=== PATIENT | female | born 1950 | race Caucasian/White ===

== ENCOUNTER → 2017-11-04 12:07 | Outpatient (CLI) | payer MEDICARE, SELFPAY ==
--- NOTE | 2017-11-04 | DI.RAD.S_ITS ---
PROCEDURE: XR CERVICAL SPINE 4V OR 5V INDICATIONS: NECK PAIN TECHNIQUE: 5 views of the cervical spine were acquired. COMPARISON: None. FINDINGS: Bones: No fractures or dislocations to the T1 level. No suspicious bony lesions. There is normal range of motion between flexion and extension, with preserved normal bony alignment. There is moderately severe C. 5/6 degenerative disc disease and mild posterior projecting osteophytes present at this level did not produce definite spinal stenosis Soft tissues: Prevertebral soft tissues are normal in thickness. IMPRESSION: C5-6 degenerative disc disease is moderately severe, but a definite pattern of spinal stenosis is not seen. Depending on the clinical status followup by MR scanning may be warranted. Dictated by: Lauro Piedra M.D. on 11/04/2017 at 12:32 Approved by: Lauro Piedra M.D. on 11/04/2017 at 12:33
== END ==
PROVIDERS: PCP Internal Medicine; Visit Provider Student in an Organized Health Care Education/Training Program
DX: M50.30 Other cervical disc degeneration, unspecified cervical region (principal)
CPT/HCPCS: 72050

== ENCOUNTER 2018-02-10 14:30 | Outpatient (RCR) | payer MEDICARE, SELFPAY ==
--- NOTE | 2018-01-12 11:15 | PT.OPPOC ---
Current Diagnoses Cervicalgia (01/12/18) Provider Visit Care Team Role Provider Type Juanito Valenzuela MD Primary Care Provider Physician Specialty: Internal Medicine Address: [address] [place] [address], [id number] Email: Yolette Keenan PA-C Attending Provider Physician Specialty: Internal Medicine Address: [address] [place] [address], [id number] Email: Plan Of Care PT-OP-T Assessment and Plan Start: 01/12/18 12:38 Freq: Status: Active Protocol: Document 01/12/18 11:15 DLM (Rec: 01/12/18 19:19 DLM [email or web address]) Physical Therapy Assessment Rehab Potential Rehabilitation Potential Good Evaluation Complexity Number of Personal Factors/Comorbidities 3 or More Number of Body Systems Impaired 4 or More Clinical Presentation at Evaluation Evolving Impairments Impairments Functional Activities Pain Posture ROM Soft Tissue Mobility Strength Goals Four Impairment Impaired posture Short Term Goal (STG) Demonstrate increased postural awareness to decrease cervical strain STG Duration 4 weeks Three Impairment Decreased cervical strength Short Term Goal (STG) Increase cervical strength to 4+/5 STG Duration 3 weeks Associate Team Physician Goal (LTG) Increase cervical strength to 5/5 LTG Duration 6 weeks Two Impairment Impaired cervical AROM Short Term Goal (STG) Increase her cervical AROM to at least 50% STG Duration 3 weeks Senior Living Goal (LTG) Increase her cervical extension and rotation to WNL to resolve difficulty during driving LTG Duration 6 weeks One Impairment pain Short Term Goal (STG) Decrease her cervical pain less than 5/10 STG Duration 2 weeks Associate Team Physician Goal (LTG) Decrease her cervical pain to less than 2/10 to no longer interfere with her sleep LTG Duration 6 weeks Assessment Summary Assessment She presents with clinical signs of cervical strain that are compounded by underlying degenerative changes. She participates in several activities that keep her head in a flexed position for extended periods of time at home. She is a good candidate for physical therapy to address the identified problems. Physical Therapy Plan Frequency and Duration Frequency of Treatment 2x/Week Duration of Treatment 6 weeks Plan of Care Start Date 01/12/18 Plan of Care End Date 03/17/18 Therapeutic Interventions Therapeutic Interventions Home Exercise Program Joint Mobilizations Manual Therapy Patient/Caregiver Education Self-Care/Home Management Soft Tissue Mobilization Taping Therapeutic Activities Therapeutic Exercises Modalities Cold Pack/Ice Massage Electric Stimulation Hot Packs Next Visit Focus/Plan Next Note Type Treatment Note Next Visit Plan trial estim to decrease lower cervical hypersensitivity, exercises Plan of Care Dates Plan of Care Start Date 01/12/18 Plan of Care End Date 03/17/18 Please Sign and Return: I have reviewed this Plan of Care and certify that the skilled therapy services above are required to meet the patient?s needs. Physician Signature Date Printed Name and Credentials Clinical Instructor Signature Printed Name and Credentials
--- NOTE | 2018-01-12 11:15 | PT.OIE ---
Current Diagnoses Cervicalgia (01/12/18) Provider Visit Care Team Role Provider Type Juanito Valenzuela MD Primary Care Provider Physician Specialty: Internal Medicine Address: [address] [place] [address], [id number] Email: Yolette Keenan PA-C Attending Provider Physician Specialty: Internal Medicine Address: [address] [place] [address], [id number] Email: Physical Therapy Initial Evaluation PT-OP-A Visit Information Start: 01/12/18 12:38 Freq: Status: Active Protocol: Document 01/12/18 11:15 DLM (Rec: 01/12/18 19:19 DLM [email or web address]) Out-Patient Physical Therapy Visit Information Visit Information Visit Type Initial Evaluation Visit Start Time 11:15 Visit Stop Time 12:10 Total Visit Minutes 55 Visit Number 1 Number of HEARING AIDE TECHNICIAN Visits 0 Evaluation Information Evaluation Date 01/12/18 PT-OP-B Current Condition Start: 01/12/18 12:38 Freq: Status: Active Protocol: Document 01/12/18 11:15 DLM (Rec: 01/12/18 19:19 DLM [email or web address]) Current Condition History of Current Condition Onset Date 1 week ago Current Complaints neck pain History of Current Condition Her pain has been at this current level for about a week . She developed back in October but it got better. Now the pain is back and worse than it was. She is not sure what caused the pain. She was washing the ceilings and dominguez in her Mother's house over the summer but not sure if that caused it. She is having pain sleeping, cooking and making jewelry. She has noted difficulty turning her head in the car when backing up. 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 Baseline Function- Recreation/Hobbies reads her Sariah Baseline Function- Other active Current Functional Impairments (Reported) Functional Limitations- ADL's Independent, cooking is painful Functional Limitations- Mobility/Gait Independent Functional Limitations- Work/School having to limit the amount of time she works on her jewelry due to the pain Functional Limitations- Recreation/ having difficulty looking down Hobbies to read her Sariah Functional Limitations- Other pain that limits her sleep, neck stiffness/pain that makes it hard to turn her head for driving PT-OP-C Subjective Start: 01/12/18 12:38 Freq: Status: Active Protocol: Document 01/12/18 11:15 DLM (Rec: 01/12/18 19:19 DLM [email or web address]) OP-PT Subjective Patient Comments Patient Comments She has tried ice on her neck but was not sure what else to do at home. Patient Questionnaires Neck Disability Index NDI Score 17/45 Neck Disability Index Impairment 20 to 39% Impaired (Score 10- 19) OP-PT Pain Assessment Pain Assessment Grid Paper Pain Assessment Grid Completed Yes: in paper chart Location Posterior Neck Intensity 7 Scale Used Numeric (1 - 10) Description Aching Frequency Daily Pain Duration worse after looking down then tries to bring her head up Radiating Location none Variations/Patterns better when resting up straight Pain Aggravating Factors Position Activity Other Pain Aggravating Factors looking down, turning her head Pain Alleviating Factors Cold Medication Inactivity Home Pain Medication Use Pain Medications Used Yes: Tylenol only Home Pain Medication Frequency daily Patient Goal no longer need it Pain Behaviors Pain Behaviors Facial Grimacing PT-OP-F Manual Assessment Start: 01/12/18 12:38 Freq: Status: Active Protocol: Document 01/12/18 11:15 DLM (Rec: 01/12/18 19:19 DLM [email or web address]) Manual Assessments Soft Tissue Assessment Soft Tissue Mobility Assessment sub-occipitals are very tight with tenderness, right UT tight/tender Joint Mobility Assessment Joint Mobility Assessment upper cervical mobility is WNL , lower cervical is very tender and full assessment can not be performed at this time PT-OP-J Posture/Palpation/Skin Start: 01/12/18 12:38 Freq: Status: Active Protocol: Document 01/12/18 11:15 DLM (Rec: 01/12/18 19:19 DLM [email or web address]) Posture Evaluation Position Sitting Evaluation View Posterior Head/C-Spine Posture Flexed Forward Head T-Spine Posture Neutral L-Spine Posture Flattened Shoulder Posture (L) Rounded (R) Rounded Arm Posture (L) Neutral (R) Neutral Pelvis Posture Posterior Tilted Weight Distribution Balanced Palpation Assessment Location One Palpation Location cervical Palpation Findings Soft Tissue Tightness Tenderness Palpation Details sub-occipital tightness, right Upper trap tightness and tender, very tender throughout C5-7 joint areas, pt jumps with attempt at deep palpation , tender along spine down to T3, 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 PT-OP-K Range of Motion Start: 01/12/18 12:38 Freq: Status: Active Protocol: Document 01/12/18 11:15 DLM (Rec: 01/12/18 19:19 DLM [email or web address]) Cervical Spine Range of Motion Cervical Spine Active Percentage Testing Position Sitting Flexion 100 Extension 75 Rotation Left 50 Rotation Right 75 Lateral Flexion Left 25 Lateral Flexion Right 30 ROM Limitations Soft Tissue Tightness Pain Shoulder Goniometric Range of Motion Shoulder Measured in Degrees Right Active Shoulder ROM WFL Yes Left Active Shoulder ROM WFL Yes PT-OP-L Special Tests Start: 01/12/18 12:38 Freq: Status: Active Protocol: Document 01/12/18 11:15 DLM (Rec: 01/12/18 19:19 DLM [email or web address]) Special Tests Cervical Spine Special Tests Traction Test Results improved pain Comments manual traction used Passive Neck Flexion Test Results negative Foraminal Compression Test Results no change PT-OP-M Strength Start: 01/12/18 12:38 Freq: Status: Active Protocol: Document 01/12/18 11:15 DLM (Rec: 01/12/18 19:19 DLM [email or web address]) Cervical Spine Strength Cervical Spine Manual Muscle Testing Testing Position Sitting Flexion (C1-2) 4 Good Extension 4+ Good+ Rotation Left 5 Normal Rotation Right 5 Normal Lateral Flexion Left (C3) 4 Good Lateral Flexion Right (C3) 4 Good Comments pain with all except rotation, mild pain but the worst is with lateral flexion Trunk Strength Trunk Manual Muscle Testing Testing Position Sitting Core Stabilization generalized core weakness PT-OP-Q Treatments Start: 01/12/18 12:38 Freq: Status: Active Protocol: Document 01/12/18 11:15 DLM (Rec: 01/12/18 19:19 DLM [email or web address]) Therapeutic Exercises Sitting Exercises 2 Sitting Exercise Name scapular pinches Reps/Minutes x 10 reps 1 Sitting Exercise Name posterior shoulder rolls Reps/Minutes x 10 reps Comments pt to do exercises 2-3 times a day at home Manual Therapy Treatment Soft Tissue Mobilization 2 Body Location cervical and UT manual stretching Mobilization Type Other Intensity/Depth Moderate Body Position Hooklying 1 Body Location sub-occipital release Mobilization Type Sustained Pressure Intensity/Depth Moderate Body Position Hooklying Manual Traction Cervical Details intermittent Body Position Hooklying Reps/Duration 3 reps Comments pt reports pain relief Self-Care/Home Management Treatment Education Patient Education Pain Management Posture PT-OP-T Assessment and Plan Start: 01/12/18 12:38 Freq: Status: Active Protocol: Document 01/12/18 11:15 DLM (Rec: 01/12/18 19:19 DLM [email or web address]) Physical Therapy Assessment Rehab Potential Rehabilitation Potential Good Evaluation Complexity Number of Personal Factors/Comorbidities 3 or More Number of Body Systems Impaired 4 or More Clinical Presentation at Evaluation Evolving Impairments Impairments Functional Activities Pain Posture ROM Soft Tissue Mobility Strength Goals Four Impairment Impaired posture Short Term Goal (STG) Demonstrate increased postural awareness to decrease cervical strain STG Duration 4 weeks Three Impairment Decreased cervical strength Short Term Goal (STG) Increase cervical strength to 4+/5 STG Duration 3 weeks Resident Athletic Trainer Goal (LTG) Increase cervical strength to 5/5 LTG Duration 6 weeks Two Impairment Impaired cervical AROM Short Term Goal (STG) Increase her cervical AROM to at least 50% STG Duration 3 weeks Skilled Nursing Goal (LTG) Increase her cervical extension and rotation to WNL to resolve difficulty during driving LTG Duration 6 weeks One Impairment pain Short Term Goal (STG) Decrease her cervical pain less than 5/10 STG Duration 2 weeks Skilled Nursing Goal (LTG) Decrease her cervical pain to less than 2/10 to no longer interfere with her sleep LTG Duration 6 weeks Assessment Summary Assessment She presents with clinical signs of cervical strain that are compounded by underlying degenerative changes. She participates in several activities that keep her head in a flexed postion for extended periods of time at home. She is a good candidate for physical therapy to address the identified problems. Physical Therapy Plan Frequency and Duration Frequency of Treatment 2x/Week Duration of Treatment 6 weeks Plan of Care Start Date 01/12/18 Plan of Care End Date 03/17/18 Therapeutic Interventions Therapeutic Interventions Home Exercise Program Joint Mobilizations Manual Therapy Patient/Caregiver Education Self-Care/Home Management Soft Tissue Mobilization Taping Therapeutic Activities Therapeutic Exercises Modalities Cold Pack/Ice Massage Electric Stimulation Hot Packs Next Visit Focus/Plan Next Note Type Treatment Note Next Visit Plan trial estim to decrease lower cervical hypersensativity, exercises
--- NOTE | 2018-01-17 13:45 | PT.OTN ---
Current Diagnoses Cervicalgia (01/17/18) Physical Therapy Treatment Note PT-OP-A Visit Information Start: 01/12/18 12:38 Freq: Status: Active Protocol: Document 01/17/18 13:45 DLM (Rec: 01/17/18 15:08 DLM [email or web address]) Out-Patient Physical Therapy Visit Information Visit Information Visit Type Treatment Note Visit Start Time 13:45 Visit Stop Time 14:40 Total Visit Minutes 55 Visit Number 2 Number of MAILING MACHINE ASSISTANT Visits 0 Evaluation Information Evaluation Date 01/12/18 PT-OP-B Current Condition Start: 01/12/18 12:38 Freq: Status: Active Protocol: Document 01/12/18 11:15 DLM (Rec: 01/12/18 19:19 DLM [email or web address]) Current Condition History of Current Condition Onset Date 1 week ago Current Complaints neck pain History of Current Condition Her pain has been at this current level for about a week . She developed back in October but it got better. Now the pain is back and worse than it was. She is not sure what caused the pain. She was washing the ceilings and dominguez in her Mother's house over the summer but not sure if that caused it. She is having pain sleeping, cooking and making jewelry. She has noted difficulty turning her head in the car when backing up. 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 Baseline Function- Recreation/Hobbies reads her Sariah Baseline Function- Other active Current Functional Impairments (Reported) Functional Limitations- ADL's Independent, cooking is painful Functional Limitations- Mobility/Gait Independent Functional Limitations- Work/School having to limit the amount of time she works on her jewelry due to the pain Functional Limitations- Recreation/ having difficulty looking down Hobbies to read her Sariah Functional Limitations- Other pain that limits her sleep, neck stiffness/pain that makes it hard to turn her head for driving PT-OP-C Subjective Start: 01/12/18 12:38 Freq: Status: Active Protocol: Document 01/17/18 13:45 DLM (Rec: 01/17/18 15:08 DLM [email or web address]) OP-PT Subjective Patient Comments Patient Comments She had a lot of pain at base of head/neck after last visit. She has been sore since last visit making it hard to work and cook. Patient Reported Progress Same OP-PT Pain Assessment Location Posterior Neck Intensity 7 Scale Used Numeric (1 - 10) Description Aching Home Pain Medication Use Pain Medications Used Yes: Tylenol only Home Pain Medication Frequency daily Pain Behaviors Pain Behaviors Facial Grimacing [place] PT-OP-F Manual Assessment Start: 01/12/18 12:38 Freq: Status: Active Protocol: Document 01/12/18 11:15 DLM (Rec: 01/12/18 19:19 DLM [email or web address]) Manual Assessments Soft Tissue Assessment Soft Tissue Mobility Assessment sub-occipitals are very tight with tenderness, right UT tight/tender Joint Mobility Assessment Joint Mobility Assessment upper cervical mobility is WNL , lower cervical is very tender and full assessment can not be performed at this time PT-OP-J Posture/Palpation/Skin Start: 01/12/18 12:38 Freq: Status: Active Protocol: Document 01/12/18 11:15 DLM (Rec: 01/12/18 19:19 DLM [email or web address]) Posture Evaluation Position Sitting Evaluation View Posterior Head/C-Spine Posture Flexed Forward Head T-Spine Posture Neutral L-Spine Posture Flattened Shoulder Posture (L) Rounded (R) Rounded Arm Posture (L) Neutral (R) Neutral Pelvis Posture Posterior Tilted Weight Distribution Balanced Palpation Assessment Location One Palpation Location cervical Palpation Findings Soft Tissue Tightness Tenderness Palpation Details sub-occipital tightness, right Upper trap tightness and tender, very tender throughout C5-7 joint areas, pt jumps with attempt at deep palpation , tender along spine down to T3, 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 PT-OP-K Range of Motion Start: 01/12/18 12:38 Freq: Status: Active Protocol: Document 01/12/18 11:15 DLM (Rec: 01/12/18 19:19 DLM [email or web address]) Cervical Spine Range of Motion Cervical Spine Active Percentage Testing Position Sitting Flexion 100 Extension 75 Rotation Left 50 Rotation Right 75 Lateral Flexion Left 25 Lateral Flexion Right 30 ROM Limitations Soft Tissue Tightness Pain Shoulder Goniometric Range of Motion Shoulder Measured in Degrees Right Active Shoulder ROM WFL Yes Left Active Shoulder ROM WFL Yes PT-OP-L Special Tests Start: 01/12/18 12:38 Freq: Status: Active Protocol: Document 01/12/18 11:15 DLM (Rec: 01/12/18 19:19 DLM [email or web address]) Special Tests Cervical Spine Special Tests Traction Test Results improved pain Comments manual traction used Passive Neck Flexion Test Results negative Foraminal Compression Test Results no change PT-OP-M Strength Start: 01/12/18 12:38 Freq: Status: Active Protocol: Document 01/12/18 11:15 DLM (Rec: 01/12/18 19:19 DLM [email or web address]) Cervical Spine Strength Cervical Spine Manual Muscle Testing Testing Position Sitting Flexion (C1-2) 4 Good Extension 4+ Good+ Rotation Left 5 Normal Rotation Right 5 Normal Lateral Flexion Left (C3) 4 Good Lateral Flexion Right (C3) 4 Good Comments pain with all except rotation, mild pain but the worst is with lateral flexion Trunk Strength Trunk Manual Muscle Testing Testing Position Sitting Core Stabilization generalized core weakness PT-OP-Q Treatments Start: 01/12/18 12:38 Freq: Status: Active Protocol: Document 01/17/18 13:45 DLM (Rec: 01/17/18 15:08 DLM [email or web address]) Therapeutic Exercises Supine Exercises 2 Supine Exercise Name supine cervical flexion, small ROM Reps/Minutes x 5 reps 1 Supine Exercise Name supine chin tucks Reps/Minutes x 5 reps Sitting Exercises 2 Sitting Exercise Name scapular pinches Reps/Minutes x 10 reps 1 Sitting Exercise Name posterior shoulder rolls Reps/Minutes x 10 reps Standing Exercises 3 Standing Exercise Name postural stretch with back to wall, moving feet back for stretch Reps/Minutes x 3 reps 2 Standing Exercise Name wall push-ups Side bilateral Reps/Minutes x 10 reps 1 Standing Exercise Name corner pectoralis stretch Side bilateral Reps/Minutes x 3 reps Manual Therapy Treatment Soft Tissue Mobilization 2 Body Location cervical and UT manual stretching Intensity/Depth Superficial Body Position Hooklying Comments decreased intensity due to soreness after last visit 1 Body Location sub-occipital release Mobilization Type Sustained Pressure Intensity/Depth Superficial Body Position Hooklying Comments decreased intensity due to soreness after last visit Manual Traction Cervical Details intermittent Body Position Hooklying Reps/Duration 3 reps Comments pt reports pain relief Self-Care/Home Management Treatment Education Patient Education Pain Management Posture PT-OP-R Modalities Start: 01/12/18 12:38 Freq: Status: Active Protocol: Document 01/17/18 13:45 DLM (Rec: 01/17/18 15:08 DLM [email or web address]) Ultrasound Therapy Treatment Posterior Lateral Neck Treatment Duration (minutes) 8 Patient Position Sitting Coupling Medium Ultrasound Gel Applicator Size (cm2) 10 Frequency Setting (mHz) 3 Mode Setting Continuous Duty Cycle 100% Intensity Setting (w/cm2) 1.2 PT-OP-T Assessment and Plan Start: 01/12/18 12:38 Freq: Status: Active Protocol: Document 01/17/18 13:45 DLM (Rec: 01/17/18 15:08 DLM [email or web address]) Physical Therapy Assessment Impairments Impairments Functional Activities Pain Posture ROM Soft Tissue Mobility Strength Progress Towards Goals Progress Towards Goals Slow Progress - Other Assessment Summary Assessment Pt presents with high irritability in her neck following first visit. She reports hearing crepitus in her neck during this visit. She tolerated treatment well today without increased pain. Decreased the intensity of manual therapy due to increased pain after last visit. Progressing her exercises slowly due to her pain issues. She is currently using heat on her neck at home and occasional ice to manage her pain. She plans to shop for a new pillow this week. Trialed US this visit to get up to sub-occipital area better. Physical Therapy Plan Frequency and Duration Frequency of Treatment 2x/Week Duration of Treatment 6 weeks Plan of Care Start Date 01/12/18 Plan of Care End Date 03/17/18 Therapeutic Interventions Therapeutic Interventions Home Exercise Program Joint Mobilizations Manual Therapy Patient/Caregiver Education Self-Care/Home Management Soft Tissue Mobilization Taping Therapeutic Activities Therapeutic Exercises Modalities Cold Pack/Ice Massage Electric Stimulation Hot Packs Next Visit Focus/Plan Next Note Type Treatment Note Next Visit Plan assess response to Ultrasound, continue to advance exercises as tolerated
--- NOTE | 2018-01-20 13:45 | PT.OTN ---
Current Diagnoses Cervicalgia (01/20/18) Physical Therapy Treatment Note PT-OP-A Visit Information Start: 01/12/18 12:38 Freq: Status: Active Protocol: Document 01/20/18 17:01 DLM (Rec: 01/20/18 17:17 DLM [email or web address]) Out-Patient Physical Therapy Visit Information Visit Information Visit Type Treatment Note Visit Start Time 13:50 Visit Stop Time 14:40 Total Visit Minutes 50 Visit Number 3 Number of TRAVELIFT OPERATOR Visits 0 Evaluation Information Evaluation Date 01/12/18 PT-OP-B Current Condition Start: 01/12/18 12:38 Freq: Status: Active Protocol: Document 01/12/18 11:15 DLM (Rec: 01/12/18 19:19 DLM [email or web address]) Current Condition History of Current Condition Onset Date 1 week ago Current Complaints neck pain History of Current Condition Her pain has been at this current level for about a week . She developed back in October but it got better. Now the pain is back and worse than it was. She is not sure what caused the pain. She was washing the ceilings and dominguez in her Mother's house over the summer but not sure if that caused it. She is having pain sleeping, cooking and making jewelry. She has noted difficulty turning her head in the car when backing up. 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 Baseline Function- Recreation/Hobbies reads her Sariah Baseline Function- Other active Current Functional Impairments (Reported) Functional Limitations- ADL's Independent, cooking is painful Functional Limitations- Mobility/Gait Independent Functional Limitations- Work/School having to limit the amount of time she works on her jewelry due to the pain Functional Limitations- Recreation/ having difficulty looking down Hobbies to read her Sariah Functional Limitations- Other pain that limits her sleep, neck stiffness/pain that makes it hard to turn her head for driving PT-OP-C Subjective Start: 01/12/18 12:38 Freq: Status: Active Protocol: Document 01/20/18 17:01 DLM (Rec: 01/20/18 17:17 DLM [email or web address]) OP-PT Subjective Patient Comments Patient Comments She felt better afte last visit. Her neck still gets really sore when making dinner . She is having trouble finding a new pillow. She has been using heat at home to manage her pain. Patient Reported Progress Improving OP-PT Pain Assessment Location Posterior Neck Pain Location Details pain rating at start of visit Intensity 0 Scale Used Numeric (1 - 10) Description Aching Frequency Intermittent PT-OP-F Manual Assessment Start: 01/12/18 12:38 Freq: Status: Active Protocol: Document 01/12/18 11:15 DLM (Rec: 01/12/18 19:19 DLM [email or web address]) Manual Assessments Soft Tissue Assessment Soft Tissue Mobility Assessment sub-occipitals are very tight with tenderness, right UT tight/tender Joint Mobility Assessment Joint Mobility Assessment upper cervical mobility is WNL , lower cervical is very tender and full assessment can not be performed at this time PT-OP-J Posture/Palpation/Skin Start: 01/12/18 12:38 Freq: Status: Active Protocol: Document 01/12/18 11:15 DLM (Rec: 01/12/18 19:19 DLM [email or web address]) Posture Evaluation Position Sitting Evaluation View Posterior Head/C-Spine Posture Flexed Forward Head T-Spine Posture Neutral L-Spine Posture Flattened Shoulder Posture (L) Rounded (R) Rounded Arm Posture (L) Neutral (R) Neutral Pelvis Posture Posterior Tilted Weight Distribution Balanced Palpation Assessment Location One Palpation Location cervical Palpation Findings Soft Tissue Tightness Tenderness Palpation Details sub-occipital tightness, right Upper trap tightness and tender, very tender throughout C5-7 joint areas, pt jumps with attempt at deep palpation , tender along spine down to T3, 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 PT-OP-K Range of Motion Start: 01/12/18 12:38 Freq: Status: Active Protocol: Document 01/12/18 11:15 DLM (Rec: 01/12/18 19:19 DLM [email or web address]) Cervical Spine Range of Motion Cervical Spine Active Percentage Testing Position Sitting Flexion 100 Extension 75 Rotation Left 50 Rotation Right 75 Lateral Flexion Left 25 Lateral Flexion Right 30 ROM Limitations Soft Tissue Tightness Pain Shoulder Goniometric Range of Motion Shoulder Measured in Degrees Right Active Shoulder ROM WFL Yes Left Active Shoulder ROM WFL Yes PT-OP-L Special Tests Start: 01/12/18 12:38 Freq: Status: Active Protocol: Document 01/12/18 11:15 DLM (Rec: 01/12/18 19:19 DLM [email or web address]) Special Tests Cervical Spine Special Tests Traction Test Results improved pain Comments manual traction used Passive Neck Flexion Test Results negative Foraminal Compression Test Results no change PT-OP-M Strength Start: 01/12/18 12:38 Freq: Status: Active Protocol: Document 01/12/18 11:15 DLM (Rec: 01/12/18 19:19 DLM [email or web address]) Cervical Spine Strength Cervical Spine Manual Muscle Testing Testing Position Sitting Flexion (C1-2) 4 Good Extension 4+ Good+ Rotation Left 5 Normal Rotation Right 5 Normal Lateral Flexion Left (C3) 4 Good Lateral Flexion Right (C3) 4 Good Comments pain with all except rotation, mild pain but the worst is with lateral flexion Trunk Strength Trunk Manual Muscle Testing Testing Position Sitting Core Stabilization generalized core weakness PT-OP-Q Treatments Start: 01/12/18 12:38 Freq: Status: Active Protocol: Document 01/20/18 17:01 DLM (Rec: 01/20/18 17:17 DLM [email or web address]) Cardio Equipment Upper Body Ergometer (UBE) Duration (Minutes) 6 Height 1.5 Other 3 forward and 3 backwards Therapeutic Exercises Supine Exercises 1 Supine Exercise Name supine chin tucks Reps/Minutes x 5 reps Sitting Exercises 4 Sitting Exercise Name cervical AROM- flex/ext, Rot, SB Side bilateral Reps/Minutes 5 each Comments with erect posture 3 Sitting Exercise Name trunk sidebend stretch Side bilateral Reps/Minutes x 3 bilaterally Comments to decrease right trunk lean 2 Sitting Exercise Name scapular pinches Reps/Minutes x 10 reps 1 Sitting Exercise Name posterior shoulder rolls Reps/Minutes x 10 reps Standing Exercises 3 Standing Exercise Name postural stretch with back to wall, moving feet back for stretch Reps/Minutes x 3 reps 2 Standing Exercise Name wall push-ups Side bilateral Reps/Minutes x 10 reps 1 Standing Exercise Name corner pectoralis stretch Side bilateral Reps/Minutes x 3 reps, 30 sec hold Manual Therapy Treatment Soft Tissue Mobilization 2 Body Location cervical and UT manual stretching Intensity/Depth Superficial Body Position Hooklying 1 Body Location sub-occipital release Mobilization Type Sustained Pressure Intensity/Depth Superficial Body Position Hooklying Manual Traction Cervical Details intermittent Body Position Hooklying Reps/Duration 3 reps Comments pt reports pain relief PT-OP-R Modalities Start: 01/12/18 12:38 Freq: Status: Active Protocol: Document 01/20/18 17:01 DL (Rec: 01/20/18 17:17 DL [email or web address]) Ultrasound Therapy Treatment Posterior Lateral Neck Treatment Duration (minutes) 8 Patient Position Sitting Coupling Medium Ultrasound Gel Applicator Size (cm2) 10 Frequency Setting (mHz) 3 Mode Setting Continuous Duty Cycle 100% Intensity Setting (w/cm2) 1.2 PT-OP-T Assessment and Plan Start: 01/12/18 12:38 Freq: Status: Active Protocol: Document 01/20/18 17:01 DL (Rec: 01/20/18 17:17 DL [email or web address]) Physical Therapy Assessment Progress Towards Goals Progress Towards Goals Progressing Toward Goals Assessment Summary Assessment She tolerated treatment well today. She feels the US is helpful. Continuing to slowly advance her exercises. Right cervical rotation is better than left but still more painful than left. Physical Therapy Plan Frequency and Duration Frequency of Treatment 2x/Week Duration of Treatment 6 weeks Plan of Care Start Date 01/12/18 Plan of Care End Date 03/17/18 Therapeutic Interventions Therapeutic Interventions Home Exercise Program Joint Mobilizations Manual Therapy Patient/Caregiver Education Self-Care/Home Management Soft Tissue Mobilization Taping Therapeutic Activities Therapeutic Exercises Modalities Cold Pack/Ice Massage Electric Stimulation Hot Packs Next Visit Focus/Plan Next Note Type Treatment Note Next Visit Plan consider kinesiotape to decrease cervical strain with home activities
--- NOTE | 2018-01-24 14:42 | PT.OTN ---
Current Diagnoses Cervicalgia (01/24/18) Physical Therapy Treatment Note PT-OP-A Visit Information Start: 01/12/18 12:38 Freq: Status: Active Protocol: Document 01/24/18 14:39 EA (Rec: 01/24/18 14:39 EA [id number]) Out-Patient Physical Therapy Visit Information Visit Information Visit Type Treatment Note Visit Start Time 13:45 Visit Stop Time 14:40 Total Visit Minutes 45 Visit Number 4 Number of DIRECTOR OF SOCIAL MEDIA MARKETING Visits 0 Evaluation Information Evaluation Date 01/12/18 PT-OP-B Current Condition Start: 01/12/18 12:38 Freq: Status: Active Protocol: Document 01/12/18 11:15 DLM (Rec: 01/12/18 19:19 DLM [email or web address]) Current Condition History of Current Condition Onset Date 1 week ago Current Complaints neck pain History of Current Condition Her pain has been at this current level for about a week . She developed back in October but it got better. Now the pain is back and worse than it was. She is not sure what caused the pain. She was washing the ceilings and dominguez in her Mother's house over the summer but not sure if that caused it. She is having pain sleeping, cooking and making jewelry. She has noted difficulty turning her head in the car when backing up. 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 Baseline Function- Recreation/Hobbies reads her Sariah Baseline Function- Other active Current Functional Impairments (Reported) Functional Limitations- ADL's Independent, cooking is painful Functional Limitations- Mobility/Gait Independent Functional Limitations- Work/School having to limit the amount of time she works on her jewelry due to the pain Functional Limitations- Recreation/ having difficulty looking down Hobbies to read her Sariah Functional Limitations- Other pain that limits her sleep, neck stiffness/pain that makes it hard to turn her head for driving PT-OP-C Subjective Start: 01/12/18 12:38 Freq: Status: Active Protocol: Document 01/24/18 13:05 EA (Rec: 01/24/18 13:43 EA [id number]) OP-PT Subjective Patient Comments Patient Comments Pt reports neck is getting much better;states occsional discomfort when turning the neck. PT-OP-F Manual Assessment Start: 01/12/18 12:38 Freq: Status: Active Protocol: Document 01/12/18 11:15 DLM (Rec: 01/12/18 19:19 DLM [email or web address]) Manual Assessments Soft Tissue Assessment Soft Tissue Mobility Assessment sub-occipitals are very tight with tenderness, right UT tight/tender Joint Mobility Assessment Joint Mobility Assessment upper cervical mobility is WNL , lower cervical is very tender and full assessment can not be performed at this time PT-OP-J Posture/Palpation/Skin Start: 01/12/18 12:38 Freq: Status: Active Protocol: Document 01/12/18 11:15 DLM (Rec: 01/12/18 19:19 DLM [email or web address]) Posture Evaluation Position Sitting Evaluation View Posterior Head/C-Spine Posture Flexed Forward Head T-Spine Posture Neutral L-Spine Posture Flattened Shoulder Posture (L) Rounded (R) Rounded Arm Posture (L) Neutral (R) Neutral Pelvis Posture Posterior Tilted Weight Distribution Balanced Palpation Assessment Location One Palpation Location cervical Palpation Findings Soft Tissue Tightness Tenderness Palpation Details sub-occipital tightness, right Upper trap tightness and tender, very tender throughout C5-7 joint areas, pt jumps with attempt at deep palpation , tender along spine down to T3, 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 PT-OP-K Range of Motion Start: 01/12/18 12:38 Freq: Status: Active Protocol: Document 01/12/18 11:15 DLM (Rec: 01/12/18 19:19 DLM [email or web address]) Cervical Spine Range of Motion Cervical Spine Active Percentage Testing Position Sitting Flexion 100 Extension 75 Rotation Left 50 Rotation Right 75 Lateral Flexion Left 25 Lateral Flexion Right 30 ROM Limitations Soft Tissue Tightness Pain Shoulder Goniometric Range of Motion Shoulder Measured in Degrees Right Active Shoulder ROM WFL Yes Left Active Shoulder ROM WFL Yes PT-OP-L Special Tests Start: 01/12/18 12:38 Freq: Status: Active Protocol: Document 01/12/18 11:15 DLM (Rec: 01/12/18 19:19 DLM [email or web address]) Special Tests Cervical Spine Special Tests Traction Test Results improved pain Comments manual traction used Passive Neck Flexion Test Results negative Foraminal Compression Test Results no change PT-OP-M Strength Start: 01/12/18 12:38 Freq: Status: Active Protocol: Document 01/12/18 11:15 DLM (Rec: 01/12/18 19:19 DLM [email or web address]) Cervical Spine Strength Cervical Spine Manual Muscle Testing Testing Position Sitting Flexion (C1-2) 4 Good Extension 4+ Good+ Rotation Left 5 Normal Rotation Right 5 Normal Lateral Flexion Left (C3) 4 Good Lateral Flexion Right (C3) 4 Good Comments pain with all except rotation, mild pain but the worst is with lateral flexion Trunk Strength Trunk Manual Muscle Testing Testing Position Sitting Core Stabilization generalized core weakness PT-OP-Q Treatments Start: 01/12/18 12:38 Freq: Status: Active Protocol: Document 01/24/18 13:05 EA (Rec: 01/24/18 13:43 EA [id number]) Therapeutic Exercises Supine Exercises 2 Supine Exercise Name supine cervical flexion, small ROM Reps/Minutes x 5 reps Comments HEP 1 Supine Exercise Name supine chin tucks Reps/Minutes x 5 reps Comments HEP Sitting Exercises 4 Sitting Exercise Name cervical AROM- flex/ext, Rot, SB Side bilateral Reps/Minutes 5 each Comments with erect posture: HEP 3 Sitting Exercise Name trunk sidebend stretch Side bilateral Reps/Minutes x 3 bilaterally Comments to decrease right trunk lean 1 Sitting Exercise Name posterior shoulder rolls Reps/Minutes x 10 reps Standing Exercises 3 Standing Exercise Name postural stretch with back to wall, moving feet back for stretch Reps/Minutes x 3 reps Manual Therapy Treatment Soft Tissue Mobilization 2 Body Location cervical and UT manual stretching Intensity/Depth Superficial Body Position Hooklying 1 Body Location sub-occipital release Mobilization Type Sustained Pressure Intensity/Depth Superficial Body Position Hooklying PT-OP-R Modalities Start: 01/12/18 12:38 Freq: Status: Active Protocol: Document 01/24/18 13:05 EA (Rec: 01/24/18 13:43 EA [id number]) Hot Pack/Cold Pack Treatment Hot Pack Location post cervical Treatment Duration (minutes) 15 Patient Tolerance Fair Comments Unwrapped PT-OP-T Assessment and Plan Start: 01/12/18 12:38 Freq: Status: Active Protocol: Document 01/24/18 13:05 EA (Rec: 01/24/18 13:43 EA [id number]) Physical Therapy Assessment Assessment Summary Assessment Pt has improved ROM and nod discomfort noted during therex . Patient is progressing well Physical Therapy Plan Next Visit Focus/Plan Next Note Type Treatment Note Next Visit Plan Advance as tolerated
--- NOTE | 2018-01-28 16:14 | PT.OTN ---
Current Diagnoses Cervicalgia (01/28/18) Physical Therapy Treatment Note PT-OP-A Visit Information Start: 01/12/18 12:38 Freq: Status: Active Protocol: Document 01/28/18 15:15 DCW (Rec: 01/28/18 16:14 DCW [id number]) Out-Patient Physical Therapy Visit Information Visit Information Visit Type Treatment Note Visit Start Time 15:15 Visit Stop Time 16:05 Total Visit Minutes 50 Visit Number 5 Number of RODENT EXTERMINATOR Visits 0 Evaluation Information Evaluation Date 01/12/18 PT-OP-B Current Condition Start: 01/12/18 12:38 Freq: Status: Active Protocol: Document 01/12/18 11:15 DLM (Rec: 01/12/18 19:19 DLM [email or web address]) Current Condition History of Current Condition Onset Date 1 week ago Current Complaints neck pain History of Current Condition Her pain has been at this current level for about a week . She developed back in October but it got better. Now the pain is back and worse than it was. She is not sure what caused the pain. She was washing the ceilings and dominguez in her Mother's house over the summer but not sure if that caused it. She is having pain sleeping, cooking and making jewelry. She has noted difficulty turning her head in the car when backing up. 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 Baseline Function- Recreation/Hobbies reads her Sariah Baseline Function- Other active Current Functional Impairments (Reported) Functional Limitations- ADL's Independent, cooking is painful Functional Limitations- Mobility/Gait Independent Functional Limitations- Work/School having to limit the amount of time she works on her jewelry due to the pain Functional Limitations- Recreation/ having difficulty looking down Hobbies to read her Sariah Functional Limitations- Other pain that limits her sleep, neck stiffness/pain that makes it hard to turn her head for driving PT-OP-C Subjective Start: 01/12/18 12:38 Freq: Status: Active Protocol: Document 01/28/18 15:15 DCW (Rec: 01/28/18 16:14 DCW [id number]) OP-PT Subjective Patient Comments Patient Comments Pt having a little more pain today, was trying to perform her home stretching earlier, and noticed it was much harder flexing head to the left. Admits I've never been an active person, but I was really active today, so that might have something to do with it. PT-OP-F Manual Assessment Start: 01/12/18 12:38 Freq: Status: Active Protocol: Document 01/12/18 11:15 DLM (Rec: 01/12/18 19:19 DLM [email or web address]) Manual Assessments Soft Tissue Assessment Soft Tissue Mobility Assessment sub-occipitals are very tight with tenderness, right UT tight/tender Joint Mobility Assessment Joint Mobility Assessment upper cervical mobility is WNL , lower cervical is very tender and full assessment can not be performed at this time PT-OP-J Posture/Palpation/Skin Start: 01/12/18 12:38 Freq: Status: Active Protocol: Document 01/12/18 11:15 DLM (Rec: 01/12/18 19:19 DLM [email or web address]) Posture Evaluation Position Sitting Evaluation View Posterior Head/C-Spine Posture Flexed Forward Head T-Spine Posture Neutral L-Spine Posture Flattened Shoulder Posture (L) Rounded (R) Rounded Arm Posture (L) Neutral (R) Neutral Pelvis Posture Posterior Tilted Weight Distribution Balanced Palpation Assessment Location One Palpation Location cervical Palpation Findings Soft Tissue Tightness Tenderness Palpation Details sub-occipital tightness, right Upper trap tightness and tender, very tender throughout C5-7 joint areas, pt jumps with attempt at deep palpation , tender along spine down to T3, 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 PT-OP-K Range of Motion Start: 01/12/18 12:38 Freq: Status: Active Protocol: Document 01/12/18 11:15 DLM (Rec: 01/12/18 19:19 DLM [email or web address]) Cervical Spine Range of Motion Cervical Spine Active Percentage Testing Position Sitting Flexion 100 Extension 75 Rotation Left 50 Rotation Right 75 Lateral Flexion Left 25 Lateral Flexion Right 30 ROM Limitations Soft Tissue Tightness Pain Shoulder Goniometric Range of Motion Shoulder Measured in Degrees Right Active Shoulder ROM WFL Yes Left Active Shoulder ROM WFL Yes PT-OP-L Special Tests Start: 01/12/18 12:38 Freq: Status: Active Protocol: Document 01/12/18 11:15 DLM (Rec: 01/12/18 19:19 DLM [email or web address]) Special Tests Cervical Spine Special Tests Traction Test Results improved pain Comments manual traction used Passive Neck Flexion Test Results negative Foraminal Compression Test Results no change PT-OP-M Strength Start: 01/12/18 12:38 Freq: Status: Active Protocol: Document 01/12/18 11:15 DLM (Rec: 01/12/18 19:19 DLM [email or web address]) Cervical Spine Strength Cervical Spine Manual Muscle Testing Testing Position Sitting Flexion (C1-2) 4 Good Extension 4+ Good+ Rotation Left 5 Normal Rotation Right 5 Normal Lateral Flexion Left (C3) 4 Good Lateral Flexion Right (C3) 4 Good Comments pain with all except rotation, mild pain but the worst is with lateral flexion Trunk Strength Trunk Manual Muscle Testing Testing Position Sitting Core Stabilization generalized core weakness PT-OP-Q Treatments Start: 01/12/18 12:38 Freq: Status: Active Protocol: Document 01/28/18 15:15 DCW (Rec: 01/28/18 16:14 DCW [id number]) Cardio Equipment Upper Body Ergometer (UBE) Duration (Minutes) 6 Height 3 Other 3 forward and 3 backwards Therapeutic Exercises Supine Exercises 3 Supine Exercise Name upper trap stretch Comments Manual 1 Supine Exercise Name supine chin tucks Reps/Minutes x 5 reps Comments HEP Manual Therapy Treatment Soft Tissue Mobilization 2 Body Location cervical and UT manual stretching Intensity/Depth Superficial Body Position Hooklying 1 Body Location sub-occipital release Mobilization Type Sustained Pressure Intensity/Depth Superficial Body Position Hooklying Manual Traction Cervical Details intermittent Body Position Hooklying Reps/Duration 3 reps Comments pt reports pain relief PT-OP-R Modalities Start: 01/12/18 12:38 Freq: Status: Active Protocol: Document 01/28/18 15:15 DCW (Rec: 01/28/18 16:14 DCW [id number]) Hot Pack/Cold Pack Treatment Hot Pack Location post cervical Patient Position Hooklying Treatment Duration (minutes) 10 Patient Tolerance Good PT-OP-T Assessment and Plan Start: 01/12/18 12:38 Freq: Status: Active Protocol: Document 01/28/18 15:15 DCW (Rec: 01/28/18 16:14 DCW [id number]) Physical Therapy Assessment Impairments Impairments Functional Activities Pain Posture ROM Soft Tissue Mobility Strength Goals Four Impairment Impaired posture Short Term Goal (STG) Demonstrate increased postural awareness to decrease cervical strain STG Duration 4 weeks Three Impairment Decreased cervical strength Short Term Goal (STG) Increase cervical strength to 4+/5 STG Duration 3 weeks Plastic Cutter Goal (LTG) Increase cervical strength to 5/5 LTG Duration 6 weeks Two Impairment Impaired cervical AROM Short Term Goal (STG) Increase her cervical AROM to at least 50% STG Duration 3 weeks Plastic Cutter Goal (LTG) Increase her cervical extension and rotation to WNL to resolve difficulty during driving LTG Duration 6 weeks One Impairment pain Short Term Goal (STG) Decrease her cervical pain less than 5/10 STG Duration 2 weeks Nursing Home Goal (LTG) Decrease her cervical pain to less than 2/10 to no longer interfere with her sleep LTG Duration 6 weeks Progress Towards Goals Progress Towards Goals Slow Progress - Other Assessment Summary Assessment Pt tolerated manual therapy well, although did report some slight discomfort during STM. Physical Therapy Plan Frequency and Duration Frequency of Treatment 2x/Week Duration of Treatment 6 weeks Plan of Care Start Date 01/12/18 Plan of Care End Date 03/17/18 Therapeutic Interventions Therapeutic Interventions Home Exercise Program Joint Mobilizations Manual Therapy Patient/Caregiver Education Self-Care/Home Management Soft Tissue Mobilization Taping Therapeutic Activities Therapeutic Exercises Modalities Cold Pack/Ice Massage Electric Stimulation Hot Packs Next Visit Focus/Plan Next Note Type Treatment Note Next Visit Plan Continue current POC
--- NOTE | 2018-01-31 13:53 | PT.OTN ---
Current Diagnoses Cervicalgia (01/31/18) Physical Therapy Treatment Note PT-OP-A Visit Information Start: 01/12/18 12:38 Freq: Status: Active Protocol: Document 01/31/18 13:01 [facility] (Rec: 01/31/18 13:53 [facility] [id number]) Out-Patient Physical Therapy Visit Information Visit Information Visit Type Treatment Note Visit Start Time 13:00 Visit Stop Time 13:50 Total Visit Minutes 55 Visit Number 6 Number of FILE SYSTEM INSTALLER Visits 0 PT-OP-B Current Condition Start: 01/12/18 12:38 Freq: Status: Active Protocol: Document 01/12/18 11:15 DLM (Rec: 01/12/18 19:19 DLM [email or web address]) Current Condition History of Current Condition Onset Date 1 week ago Current Complaints neck pain History of Current Condition Her pain has been at this current level for about a week . She developed back in October but it got better. Now the pain is back and worse than it was. She is not sure what caused the pain. She was washing the ceilings and dominguez in her Mother's house over the summer but not sure if that caused it. She is having pain sleeping, cooking and making jewelry. She has noted difficulty turning her head in the car when backing up. 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 Baseline Function- Recreation/Hobbies reads her Sariah Baseline Function- Other active Current Functional Impairments (Reported) Functional Limitations- ADL's Independent, cooking is painful Functional Limitations- Mobility/Gait Independent Functional Limitations- Work/School having to limit the amount of time she works on her jewelry due to the pain Functional Limitations- Recreation/ having difficulty looking down Hobbies to read her Sariah Functional Limitations- Other pain that limits her sleep, neck stiffness/pain that makes it hard to turn her head for driving PT-OP-C Subjective Start: 01/12/18 12:38 Freq: Status: Active Protocol: Document 01/31/18 13:01 [facility] (Rec: 01/31/18 13:53 [facility] [id number]) OP-PT Subjective Patient Comments Patient Comments Pt reports she has been trying to do exercises but has been very busy lately too. PT-OP-F Manual Assessment Start: 01/12/18 12:38 Freq: Status: Active Protocol: Document 01/12/18 11:15 DLM (Rec: 01/12/18 19:19 DLM [email or web address]) Manual Assessments Soft Tissue Assessment Soft Tissue Mobility Assessment sub-occipitals are very tight with tenderness, right UT tight/tender Joint Mobility Assessment Joint Mobility Assessment upper cervical mobility is WNL , lower cervical is very tender and full assessment can not be performed at this time PT-OP-J Posture/Palpation/Skin Start: 01/12/18 12:38 Freq: Status: Active Protocol: Document 01/12/18 11:15 DLM (Rec: 01/12/18 19:19 DLM [email or web address]) Posture Evaluation Position Sitting Evaluation View Posterior Head/C-Spine Posture Flexed Forward Head T-Spine Posture Neutral L-Spine Posture Flattened Shoulder Posture (L) Rounded (R) Rounded Arm Posture (L) Neutral (R) Neutral Pelvis Posture Posterior Tilted Weight Distribution Balanced Palpation Assessment Location One Palpation Location cervical Palpation Findings Soft Tissue Tightness Tenderness Palpation Details sub-occipital tightness, right Upper trap tightness and tender, very tender throughout C5-7 joint areas, pt jumps with attempt at deep palpation , tender along spine down to T3, 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 PT-OP-K Range of Motion Start: 01/12/18 12:38 Freq: Status: Active Protocol: Document 01/12/18 11:15 DLM (Rec: 01/12/18 19:19 DLM [email or web address]) Cervical Spine Range of Motion Cervical Spine Active Percentage Testing Position Sitting Flexion 100 Extension 75 Rotation Left 50 Rotation Right 75 Lateral Flexion Left 25 Lateral Flexion Right 30 ROM Limitations Soft Tissue Tightness Pain Shoulder Goniometric Range of Motion Shoulder Measured in Degrees Right Active Shoulder ROM WFL Yes Left Active Shoulder ROM WFL Yes PT-OP-L Special Tests Start: 01/12/18 12:38 Freq: Status: Active Protocol: Document 01/12/18 11:15 DLM (Rec: 01/12/18 19:19 DLM [email or web address]) Special Tests Cervical Spine Special Tests Traction Test Results improved pain Comments manual traction used Passive Neck Flexion Test Results negative Foraminal Compression Test Results no change PT-OP-M Strength Start: 01/12/18 12:38 Freq: Status: Active Protocol: Document 01/12/18 11:15 DLM (Rec: 01/12/18 19:19 DLM [email or web address]) Cervical Spine Strength Cervical Spine Manual Muscle Testing Testing Position Sitting Flexion (C1-2) 4 Good Extension 4+ Good+ Rotation Left 5 Normal Rotation Right 5 Normal Lateral Flexion Left (C3) 4 Good Lateral Flexion Right (C3) 4 Good Comments pain with all except rotation, mild pain but the worst is with lateral flexion Trunk Strength Trunk Manual Muscle Testing Testing Position Sitting Core Stabilization generalized core weakness PT-OP-Q Treatments Start: 01/12/18 12:38 Freq: Status: Active Protocol: Document 01/31/18 13:01 [facility] (Rec: 01/31/18 13:53 [facility] [id number]) Cardio Equipment Upper Body Ergometer (UBE) Duration (Minutes) 6 Height 3 Other 3 forward and 3 backwards Therapeutic Activity Therapeutic Activity 1 Name desk posture Comments edu on how to set up computer & laptop for good positioning Manual Therapy Treatment Soft Tissue Mobilization 3 Body Location cervical post region Mobilization Type Myofascial Release Comments w/dycem & head turns & flex 2 Body Location UT & LS Mobilization Type Rolling Intensity/Depth Moderate Joint Mobilizations 1 Joint T1 Direction L transverse FM Comments w/cover position PT-OP-R Modalities Start: 01/12/18 12:38 Freq: Status: Active Protocol: Document 01/31/18 13:01 [facility] (Rec: 01/31/18 13:53 [facility] [id number]) Hot Pack/Cold Pack Treatment Hot Pack Location post cervical Patient Position Hooklying Treatment Duration (minutes) 10 Patient Tolerance Good PT-OP-T Assessment and Plan Start: 01/12/18 12:38 Freq: Status: Active Protocol: Document 01/31/18 13:01 [facility] (Rec: 01/31/18 13:53 [facility] [id number]) Physical Therapy Assessment Goals Four Impairment Impaired posture Short Term Goal (STG) Demonstrate increased postural awareness to decrease cervical strain STG Duration 4 weeks Three Impairment Decreased cervical strength Short Term Goal (STG) Increase cervical strength to 4+/5 STG Duration 3 weeks Nurse [employer] Goal (LTG) Increase cervical strength to 5/5 LTG Duration 6 weeks Two Impairment Impaired cervical AROM Short Term Goal (STG) Increase her cervical AROM to at least 50% STG Duration 3 weeks [facility] Goal (LTG) Increase her cervical extension and rotation to WNL to resolve difficulty during driving LTG Duration 6 weeks One Impairment pain Short Term Goal (STG) Decrease her cervical pain less than 5/10 STG Duration 2 weeks [facility] Goal (LTG) Decrease her cervical pain to less than 2/10 to no longer interfere with her sleep LTG Duration 6 weeks Assessment Summary Assessment Pt had improved rotation with dec pain with cervical STM & gentle mobilziation. Significant R sided tightness of cervical mm with dec excursion of upper thoracic. Physical Therapy Plan Frequency and Duration Frequency of Treatment 2x/Week Duration of Treatment 6 weeks Plan of Care Start Date 01/12/18 Plan of Care End Date 03/17/18 Next Visit Focus/Plan Next Note Type Treatment Note Next Visit Plan Continue current POC; work on upper thoracic mobility
--- NOTE | 2018-02-03 12:44 | PT.OTN ---
Current Diagnoses Cervicalgia (02/03/18) Physical Therapy Treatment Note PT-OP-A Visit Information Start: 01/12/18 12:38 Freq: Status: Active Protocol: Document 02/03/18 12:00 DCW (Rec: 02/03/18 12:44 DCW [id number]) Out-Patient Physical Therapy Visit Information Visit Information Visit Type Treatment Note Visit Start Time 12:00 Visit Stop Time 12:45 Total Visit Minutes 45 Visit Number 7 Number of INFORMATICS EDUCATOR Visits 0 Evaluation Information Evaluation Date 01/12/18 PT-OP-B Current Condition Start: 01/12/18 12:38 Freq: Status: Active Protocol: Document 01/12/18 11:15 DLM (Rec: 01/12/18 19:19 DLM [email or web address]) Current Condition History of Current Condition Onset Date 1 week ago Current Complaints neck pain History of Current Condition Her pain has been at this current level for about a week . She developed back in October but it got better. Now the pain is back and worse than it was. She is not sure what caused the pain. She was washing the ceilings and dominguez in her Mother's house over the summer but not sure if that caused it. She is having pain sleeping, cooking and making jewelry. She has noted difficulty turning her head in the car when backing up. 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 Baseline Function- Recreation/Hobbies reads her Sariah Baseline Function- Other active Current Functional Impairments (Reported) Functional Limitations- ADL's Independent, cooking is painful Functional Limitations- Mobility/Gait Independent Functional Limitations- Work/School having to limit the amount of time she works on her jewelry due to the pain Functional Limitations- Recreation/ having difficulty looking down Hobbies to read her Sariah Functional Limitations- Other pain that limits her sleep, neck stiffness/pain that makes it hard to turn her head for driving PT-OP-C Subjective Start: 01/12/18 12:38 Freq: Status: Active Protocol: Document 02/03/18 12:00 DCW (Rec: 02/03/18 12:44 DCW [id number]) OP-PT Subjective Patient Comments Patient Comments Pt notes she has been doing well PT-OP-F Manual Assessment Start: 01/12/18 12:38 Freq: Status: Active Protocol: Document 01/12/18 11:15 DLM (Rec: 01/12/18 19:19 DLM [email or web address]) Manual Assessments Soft Tissue Assessment Soft Tissue Mobility Assessment sub-occipitals are very tight with tenderness, right UT tight/tender Joint Mobility Assessment Joint Mobility Assessment upper cervical mobility is WNL , lower cervical is very tender and full assessment can not be performed at this time PT-OP-J Posture/Palpation/Skin Start: 01/12/18 12:38 Freq: Status: Active Protocol: Document 01/12/18 11:15 DLM (Rec: 01/12/18 19:19 DLM [email or web address]) Posture Evaluation Position Sitting Evaluation View Posterior Head/C-Spine Posture Flexed Forward Head T-Spine Posture Neutral L-Spine Posture Flattened Shoulder Posture (L) Rounded (R) Rounded Arm Posture (L) Neutral (R) Neutral Pelvis Posture Posterior Tilted Weight Distribution Balanced Palpation Assessment Location One Palpation Location cervical Palpation Findings Soft Tissue Tightness Tenderness Palpation Details sub-occipital tightness, right Upper trap tightness and tender, very tender throughout C5-7 joint areas, pt jumps with attempt at deep palpation , tender along spine down to T3, 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 PT-OP-K Range of Motion Start: 01/12/18 12:38 Freq: Status: Active Protocol: Document 01/12/18 11:15 DLM (Rec: 01/12/18 19:19 DLM [email or web address]) Cervical Spine Range of Motion Cervical Spine Active Percentage Testing Position Sitting Flexion 100 Extension 75 Rotation Left 50 Rotation Right 75 Lateral Flexion Left 25 Lateral Flexion Right 30 ROM Limitations Soft Tissue Tightness Pain Shoulder Goniometric Range of Motion Shoulder Measured in Degrees Right Active Shoulder ROM WFL Yes Left Active Shoulder ROM WFL Yes PT-OP-L Special Tests Start: 01/12/18 12:38 Freq: Status: Active Protocol: Document 01/12/18 11:15 DLM (Rec: 01/12/18 19:19 DLM [email or web address]) Special Tests Cervical Spine Special Tests Traction Test Results improved pain Comments manual traction used Passive Neck Flexion Test Results negative Foraminal Compression Test Results no change PT-OP-M Strength Start: 01/12/18 12:38 Freq: Status: Active Protocol: Document 01/12/18 11:15 DLM (Rec: 01/12/18 19:19 DLM [email or web address]) Cervical Spine Strength Cervical Spine Manual Muscle Testing Testing Position Sitting Flexion (C1-2) 4 Good Extension 4+ Good+ Rotation Left 5 Normal Rotation Right 5 Normal Lateral Flexion Left (C3) 4 Good Lateral Flexion Right (C3) 4 Good Comments pain with all except rotation, mild pain but the worst is with lateral flexion Trunk Strength Trunk Manual Muscle Testing Testing Position Sitting Core Stabilization generalized core weakness PT-OP-Q Treatments Start: 01/12/18 12:38 Freq: Status: Active Protocol: Document 02/03/18 12:00 DCW (Rec: 02/03/18 12:44 DCW [id number]) Therapeutic Exercises Supine Exercises 3 Supine Exercise Name upper trap stretch Comments Manual 1 Supine Exercise Name supine chin tucks Reps/Minutes x 5 reps Comments HEP Sitting Exercises 4 Sitting Exercise Name cervical AROM- flex/ext, Rot, SB Side bilateral Reps/Minutes 5 each Comments with erect posture: HEP Manual Therapy Treatment Soft Tissue Mobilization 2 Body Location cervical and UT manual stretching Intensity/Depth Superficial Body Position Hooklying 1 Body Location sub-occipital release Mobilization Type Sustained Pressure Intensity/Depth Superficial Body Position Hooklying Joint Mobilizations 1 Joint T1 Direction L transverse FM Comments w/cover position Manual Traction Cervical Details intermittent Body Position Hooklying Reps/Duration 3 reps PT-OP-T Assessment and Plan Start: 01/12/18 12:38 Freq: Status: Active Protocol: Document 02/03/18 12:00 DCW (Rec: 02/03/18 12:44 DCW [id number]) Physical Therapy Assessment Impairments Impairments Functional Activities Pain Posture ROM Soft Tissue Mobility Strength Goals Four Impairment Impaired posture Short Term Goal (STG) Demonstrate increased postural awareness to decrease cervical strain STG Duration 4 weeks Three Impairment Decreased cervical strength Short Term Goal (STG) Increase cervical strength to 4+/5 STG Duration 3 weeks Residential Goal (LTG) Increase cervical strength to 5/5 LTG Duration 6 weeks Two Impairment Impaired cervical AROM Short Term Goal (STG) Increase her cervical AROM to at least 50% STG Duration 3 weeks Emissions Technician Goal (LTG) Increase her cervical extension and rotation to WNL to resolve difficulty during driving LTG Duration 6 weeks One Impairment pain Short Term Goal (STG) Decrease her cervical pain less than 5/10 STG Duration 2 weeks Residential Goal (LTG) Decrease her cervical pain to less than 2/10 to no longer interfere with her sleep LTG Duration 6 weeks Progress Towards Goals Progress Towards Goals Slow Progress - Other Assessment Summary Assessment Pt displayed decrease in cervical tone, improved mobility. Physical Therapy Plan Frequency and Duration Frequency of Treatment 2x/Week Duration of Treatment 6 weeks Plan of Care Start Date 01/12/18 Plan of Care End Date 03/17/18 Therapeutic Interventions Therapeutic Interventions Home Exercise Program Joint Mobilizations Manual Therapy Patient/Caregiver Education Self-Care/Home Management Soft Tissue Mobilization Taping Therapeutic Activities Therapeutic Exercises Modalities Cold Pack/Ice Massage Electric Stimulation Hot Packs Next Visit Focus/Plan Next Note Type Treatment Note Next Visit Plan Continue current POC; work on upper thoracic mobility
--- NOTE | 2018-02-07 16:00 | PT.OTN ---
Current Diagnoses Cervicalgia (02/07/18) Physical Therapy Treatment Note PT-OP-A Visit Information Start: 01/12/18 12:38 Freq: Status: Active Protocol: Document 02/07/18 15:16 EA (Rec: 02/07/18 15:59 EA [id number]) Out-Patient Physical Therapy Visit Information Visit Information Visit Type Treatment Note Visit Start Time 15:15 Visit Stop Time 16:00 Total Visit Minutes 45 Visit Number 8 PT-OP-B Current Condition Start: 01/12/18 12:38 Freq: Status: Active Protocol: Document 01/12/18 11:15 DLM (Rec: 01/12/18 19:19 DLM [email or web address]) Current Condition History of Current Condition Onset Date 1 week ago Current Complaints neck pain History of Current Condition Her pain has been at this current level for about a week . She developed back in October but it got better. Now the pain is back and worse than it was. She is not sure what caused the pain. She was washing the ceilings and dominguez in her Mother's house over the summer but not sure if that caused it. She is having pain sleeping, cooking and making jewelry. She has noted difficulty turning her head in the car when backing up. 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 Baseline Function- Recreation/Hobbies reads her Sariah Baseline Function- Other active Current Functional Impairments (Reported) Functional Limitations- ADL's Independent, cooking is painful Functional Limitations- Mobility/Gait Independent Functional Limitations- Work/School having to limit the amount of time she works on her jewelry due to the pain Functional Limitations- Recreation/ having difficulty looking down Hobbies to read her Sariah Functional Limitations- Other pain that limits her sleep, neck stiffness/pain that makes it hard to turn her head for driving PT-OP-C Subjective Start: 01/12/18 12:38 Freq: Status: Active Protocol: Document 02/07/18 15:16 EA (Rec: 02/07/18 15:59 EA [id number]) OP-PT Subjective Patient Comments Patient Comments Patient reports turning head towards right still hav difficult. PT-OP-F Manual Assessment Start: 01/12/18 12:38 Freq: Status: Active Protocol: Document 01/12/18 11:15 DLM (Rec: 01/12/18 19:19 DLM [email or web address]) Manual Assessments Soft Tissue Assessment Soft Tissue Mobility Assessment sub-occipitals are very tight with tenderness, right UT tight/tender Joint Mobility Assessment Joint Mobility Assessment upper cervical mobility is WNL , lower cervical is very tender and full assessment can not be performed at this time PT-OP-J Posture/Palpation/Skin Start: 01/12/18 12:38 Freq: Status: Active Protocol: Document 01/12/18 11:15 DLM (Rec: 01/12/18 19:19 DLM [email or web address]) Posture Evaluation Position Sitting Evaluation View Posterior Head/C-Spine Posture Flexed Forward Head T-Spine Posture Neutral L-Spine Posture Flattened Shoulder Posture (L) Rounded (R) Rounded Arm Posture (L) Neutral (R) Neutral Pelvis Posture Posterior Tilted Weight Distribution Balanced Palpation Assessment Location One Palpation Location cervical Palpation Findings Soft Tissue Tightness Tenderness Palpation Details sub-occipital tightness, right Upper trap tightness and tender, very tender throughout C5-7 joint areas, pt jumps with attempt at deep palpation , tender along spine down to T3, 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 PT-OP-K Range of Motion Start: 01/12/18 12:38 Freq: Status: Active Protocol: Document 01/12/18 11:15 DLM (Rec: 01/12/18 19:19 DLM [email or web address]) Cervical Spine Range of Motion Cervical Spine Active Percentage Testing Position Sitting Flexion 100 Extension 75 Rotation Left 50 Rotation Right 75 Lateral Flexion Left 25 Lateral Flexion Right 30 ROM Limitations Soft Tissue Tightness Pain Shoulder Goniometric Range of Motion Shoulder Measured in Degrees Right Active Shoulder ROM WFL Yes Left Active Shoulder ROM WFL Yes PT-OP-L Special Tests Start: 01/12/18 12:38 Freq: Status: Active Protocol: Document 01/12/18 11:15 DLM (Rec: 01/12/18 19:19 DLM [email or web address]) Special Tests Cervical Spine Special Tests Traction Test Results improved pain Comments manual traction used Passive Neck Flexion Test Results negative Foraminal Compression Test Results no change PT-OP-M Strength Start: 01/12/18 12:38 Freq: Status: Active Protocol: Document 01/12/18 11:15 DLM (Rec: 01/12/18 19:19 DLM [email or web address]) Cervical Spine Strength Cervical Spine Manual Muscle Testing Testing Position Sitting Flexion (C1-2) 4 Good Extension 4+ Good+ Rotation Left 5 Normal Rotation Right 5 Normal Lateral Flexion Left (C3) 4 Good Lateral Flexion Right (C3) 4 Good Comments pain with all except rotation, mild pain but the worst is with lateral flexion Trunk Strength Trunk Manual Muscle Testing Testing Position Sitting Core Stabilization generalized core weakness PT-OP-Q Treatments Start: 01/12/18 12:38 Freq: Status: Active Protocol: Document 02/07/18 15:16 EA (Rec: 02/07/18 15:59 EA [id number]) Therapeutic Exercises Supine Exercises 3 Supine Exercise Name upper trap stretch Comments Manual 1 Supine Exercise Name supine chin tucks Reps/Minutes x 5 reps Comments HEP Sitting Exercises 4 Sitting Exercise Name cervical AROM- flex/ext, Rot, SB Side bilateral Reps/Minutes 5 each Comments with erect posture: HEP Manual Therapy Treatment Soft Tissue Mobilization 3 Body Location cervical post region Mobilization Type Myofascial Release 2 Body Location cervical and UT manual stretching Intensity/Depth Superficial Body Position Hooklying 1 Body Location sub-occipital release Mobilization Type Sustained Pressure Intensity/Depth Superficial Body Position Hooklying Manual Traction Cervical Details intermittent Body Position Hooklying Reps/Duration 3 reps PT-OP-R Modalities Start: 01/12/18 12:38 Freq: Status: Active Protocol: Document 01/31/18 13:01 LR (Rec: 01/31/18 13:53 [facility] [id number]) Hot Pack/Cold Pack Treatment Hot Pack Location post cervical Patient Position Hooklying Treatment Duration (minutes) 10 Patient Tolerance Good PT-OP-T Assessment and Plan Start: 01/12/18 12:38 Freq: Status: Active Protocol: Document 02/07/18 15:16 EA (Rec: 02/07/18 15:59 EA [id number]) Physical Therapy Assessment Assessment Summary Assessment Full AROM to rotation slight discomfort at range toward right. Patient is progressing well. Physical Therapy Plan Next Visit Focus/Plan Next Note Type Treatment Note Next Visit Plan Continue current POC; work on upper thoracic mobility
--- NOTE | 2018-02-10 15:14 | PT.OTN ---
Current Diagnoses Cervicalgia (02/10/18) Physical Therapy Treatment Note PT-OP-A Visit Information Start: 01/12/18 12:38 Freq: Status: Active Protocol: Document 02/10/18 15:08 EA (Rec: 02/10/18 15:14 EA [id number]) Out-Patient Physical Therapy Visit Information Visit Information Visit Type Treatment Note Visit Start Time 14:30 Visit Stop Time 15:10 Total Visit Minutes 40 Visit Number 9 PT-OP-B Current Condition Start: 01/12/18 12:38 Freq: Status: Active Protocol: Document 01/12/18 11:15 DLM (Rec: 01/12/18 19:19 DLM [email or web address]) Current Condition History of Current Condition Onset Date 1 week ago Current Complaints neck pain History of Current Condition Her pain has been at this current level for about a week . She developed back in October but it got better. Now the pain is back and worse than it was. She is not sure what caused the pain. She was washing the ceilings and dominguez in her Mother's house over the summer but not sure if that caused it. She is having pain sleeping, cooking and making jewelry. She has noted difficulty turning her head in the car when backing up. 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 Baseline Function- Recreation/Hobbies reads her Sariah Baseline Function- Other active Current Functional Impairments (Reported) Functional Limitations- ADL's Independent, cooking is painful Functional Limitations- Mobility/Gait Independent Functional Limitations- Work/School having to limit the amount of time she works on her jewelry due to the pain Functional Limitations- Recreation/ having difficulty looking down Hobbies to read her Sariah Functional Limitations- Other pain that limits her sleep, neck stiffness/pain that makes it hard to turn her head for driving PT-OP-C Subjective Start: 01/12/18 12:38 Freq: Status: Active Protocol: Document 02/10/18 15:08 EA (Rec: 02/10/18 15:14 EA [id number]) OP-PT Subjective Patient Comments Patient Comments Pt reports neck is improving with minimal pain when back up the car. PT-OP-F Manual Assessment Start: 01/12/18 12:38 Freq: Status: Active Protocol: Document 01/12/18 11:15 DLM (Rec: 01/12/18 19:19 DLM [email or web address]) Manual Assessments Soft Tissue Assessment Soft Tissue Mobility Assessment sub-occipitals are very tight with tenderness, right UT tight/tender Joint Mobility Assessment Joint Mobility Assessment upper cervical mobility is WNL , lower cervical is very tender and full assessment can not be performed at this time PT-OP-J Posture/Palpation/Skin Start: 01/12/18 12:38 Freq: Status: Active Protocol: Document 01/12/18 11:15 DLM (Rec: 01/12/18 19:19 DLM [email or web address]) Posture Evaluation Position Sitting Evaluation View Posterior Head/C-Spine Posture Flexed Forward Head T-Spine Posture Neutral L-Spine Posture Flattened Shoulder Posture (L) Rounded (R) Rounded Arm Posture (L) Neutral (R) Neutral Pelvis Posture Posterior Tilted Weight Distribution Balanced Palpation Assessment Location One Palpation Location cervical Palpation Findings Soft Tissue Tightness Tenderness Palpation Details sub-occipital tightness, right Upper trap tightness and tender, very tender throughout C5-7 joint areas, pt jumps with attempt at deep palpation , tender along spine down to T3, 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 PT-OP-K Range of Motion Start: 01/12/18 12:38 Freq: Status: Active Protocol: Document 01/12/18 11:15 DLM (Rec: 01/12/18 19:19 DLM [email or web address]) Cervical Spine Range of Motion Cervical Spine Active Percentage Testing Position Sitting Flexion 100 Extension 75 Rotation Left 50 Rotation Right 75 Lateral Flexion Left 25 Lateral Flexion Right 30 ROM Limitations Soft Tissue Tightness Pain Shoulder Goniometric Range of Motion Shoulder Measured in Degrees Right Active Shoulder ROM WFL Yes Left Active Shoulder ROM WFL Yes PT-OP-L Special Tests Start: 01/12/18 12:38 Freq: Status: Active Protocol: Document 01/12/18 11:15 DLM (Rec: 01/12/18 19:19 DLM [email or web address]) Special Tests Cervical Spine Special Tests Traction Test Results improved pain Comments manual traction used Passive Neck Flexion Test Results negative Foraminal Compression Test Results no change PT-OP-M Strength Start: 01/12/18 12:38 Freq: Status: Active Protocol: Document 01/12/18 11:15 DLM (Rec: 01/12/18 19:19 DLM [email or web address]) Cervical Spine Strength Cervical Spine Manual Muscle Testing Testing Position Sitting Flexion (C1-2) 4 Good Extension 4+ Good+ Rotation Left 5 Normal Rotation Right 5 Normal Lateral Flexion Left (C3) 4 Good Lateral Flexion Right (C3) 4 Good Comments pain with all except rotation, mild pain but the worst is with lateral flexion Trunk Strength Trunk Manual Muscle Testing Testing Position Sitting Core Stabilization generalized core weakness PT-OP-Q Treatments Start: 01/12/18 12:38 Freq: Status: Active Protocol: Document 02/10/18 15:08 EA (Rec: 02/10/18 15:14 EA [id number]) Therapeutic Exercises Supine Exercises 3 Supine Exercise Name upper trap stretch Comments Manual 1 Supine Exercise Name supine chin tucks Reps/Minutes x 5 reps Comments HEP Sitting Exercises 4 Sitting Exercise Name cervical AROM- flex/ext, Rot, SB Side bilateral Reps/Minutes 5 each Comments with erect posture: [facility] Manual Therapy Treatment Soft Tissue Mobilization 3 Body Location cervical post region Mobilization Type Myofascial Release 2 Body Location cervical and UT manual stretching Intensity/Depth Superficial Body Position Hooklying 1 Body Location sub-occipital release Mobilization Type Sustained Pressure Intensity/Depth Superficial Body Position Hooklying Manual Techniques 1 Type contract -relax Passive stretch at pain range Reps/Duration x 7SH x 5 reps each side PT-OP-R Modalities Start: 01/12/18 12:38 Freq: Status: Active Protocol: Document 01/31/18 13:01 [facility] (Rec: 01/31/18 13:53 [facility] [id number]) Hot Pack/Cold Pack Treatment Hot Pack Location post cervical Patient Position Hooklying Treatment Duration (minutes) 10 Patient Tolerance Good PT-OP-T Assessment and Plan Start: 01/12/18 12:38 Freq: Status: Active Protocol: Document 02/10/18 15:08 EA (Rec: 02/10/18 15:14 EA [id number]) Physical Therapy Assessment Assessment Summary Assessment Patient was able to complete neck rotation in sitting full with very slight discomfort. Patient is progressing well. Prepare for discharge to [facility] next visit if no more complaint. Physical Therapy Plan Next Visit Focus/Plan Next Note Type Progress Note Next Visit Plan Possible discharge to [facility].
== END 2018-04-11 14:27 ==
LOC: PHYS 14:30
PROVIDERS: PCP Internal Medicine; Visit Provider Student in an Organized Health Care Education/Training Program
DX: M54.2 Cervicalgia (principal)
CPT/HCPCS: 97035; 97110; 97140; 97162; 97530; 97535

== ENCOUNTER 2018-06-09 14:30 | Outpatient (RCR) | payer MEDICARE, SELFPAY ==
--- NOTE | 2018-04-18 12:01 | PT.OIE ---
Current Diagnoses Pain in left knee (04/14/18) Pain in left lower leg (04/14/18) Provider Visit Care Team Role Provider Type Juanito Valenzuela MD Primary Care Provider Physician Specialty: Internal Medicine Address: [address] [place] [address], [id number] Email: Yolette Keenan PA-C Attending Provider Physician Specialty: Internal Medicine Address: [address] [place] [address], [id number] Email: Physical Therapy Initial Evaluation PT-OP-A Visit Information Start: 04/14/18 07:08 Freq: Status: Active Protocol: Document 04/14/18 14:30 AMB (Rec: 04/15/18 07:17 AMB [email or web address]) Out-Patient Physical Therapy Visit Information Visit Information Visit Type Initial Evaluation Visit Start Time 14:30 Visit Stop Time 15:15 Total Visit Minutes 45 Visit Number 1 Evaluation Information Evaluation Date 04/14/18 PT-OP-B Current Condition Start: 04/14/18 07:08 Freq: Status: Active Protocol: Document 04/14/18 14:30 AMB (Rec: 04/15/18 07:29 AMB [email or web address]) Current Condition History of Current Condition Onset Date January 2018 Current Complaints L posterior/medial knee pain, can go into calf History of Current Condition The patient reports that she was carrying a piece of furniture down the stairs and felt pain in her left leg. Since then the pain has been staying the same or getting worse. No pain at rest, but with walking. Sharp pain after 3-4 steps especially after she has been driving or sitting in her recliner. Treatment Goals Patient/Caregiver Goals Walk without feeling leg will give way Prior Functional Status Baseline Function- ADL's Independent Baseline Function- Mobility Independent Current Functional Impairments (Reported) Functional Limitations- Mobility/Gait Difficulty walking, rolling over in bed Personal Factors Other Personal Factors That May Effect History R plantar fasciitis, Therapy/Recovery afib PT-OP-C Subjective Start: 04/14/18 07:08 Freq: Status: Active Protocol: Document 04/14/18 14:30 AMB (Rec: 04/18/18 09:12 AMB [email or web address]) Patient Questionnaires Lower Extremity Functional Scale LEFS Score 46 LEFS Impairment 20 to 39% Impaired (Score 48- 62) OP-PT Pain Assessment Pain Assessment Grid Paper Pain Assessment Grid Completed Yes PT-OP-G Mobility & Gait Start: 04/14/18 07:08 Freq: Status: Active Protocol: Document 04/14/18 14:30 AMB (Rec: 04/18/18 09:25 AMB [email or web address]) OP Gait Assessment Comments Gait Comments Pt ambulates with WBOS decreased trunk rotation. PT-OP-J Posture/Palpation/Skin Start: 04/18/18 12:00 Freq: Status: Active Protocol: Document 04/14/18 14:30 AMB (Rec: 04/18/18 12:01 AMB [email or web address]) Palpation Assessment Location One Palpation Location posterior knee Palpation Findings Edema Soft Tissue Tightness Tenderness Palpation Details tenderness at medial hamstring insertion. Mild edema present at popliteal fossa. PT-OP-K Range of Motion Start: 04/14/18 07:08 Freq: Status: Active Protocol: Document 04/14/18 14:30 AMB (Rec: 04/18/18 09:25 AMB [email or web address]) Knee Goniometric Range of Motion Knee Measured in Degrees Right Knee ROM WFL Yes Left Flexion Active (degrees) 120 Extension Active (degrees) 0 Knee ROM Limitations Comments missing 25 degrees in 90-90 position PT-OP-L Special Tests Start: 04/14/18 07:08 Freq: Status: Active Protocol: Document 04/14/18 14:30 AMB (Rec: 04/18/18 09:25 AMB [email or web address]) Special Tests Knee Special Tests Martin Test Test Results negative Shadi's Test Results negative PT-OP-M Strength Start: 04/14/18 07:08 Freq: Status: Active Protocol: Document 04/14/18 14:30 AMB (Rec: 04/18/18 09:25 AMB [email or web address]) Hip Strength Hip Manual Muscle Testing Right Flexion (L2) 4+ Good+ Extension (S1) 4 Good Abduction 4+ Good+ Adduction 4+ Good+ Left Flexion (L2) 4+ Good+ Extension (S1) 4 Good Abduction 4+ Good+ Adduction 4+ Good+ Knee Strength Knee Manual Muscle Testing Right Flexion (S2) 4+ Good+ Extension (L3) 4+ Good+ Left Flexion (S2) 4- Good- Extension (L3) 4+ Good+ PT-OP-Q Treatments Start: 04/14/18 07:08 Freq: Status: Active Protocol: Document 04/14/18 14:30 AMB (Rec: 04/15/18 07:21 AMB [email or web address]) Therapeutic Exercises Standing Exercises 3 Standing Exercise Name hamstring curl Resistance #3 tband Reps/Minutes 10 PT-OP-T Assessment and Plan Start: 04/14/18 07:08 Freq: Status: Active Protocol: Document 04/14/18 14:30 AMB (Rec: 04/18/18 09:43 AMB [email or web address]) Physical Therapy Assessment Rehab Potential Rehabilitation Potential Good Evaluation Complexity Number of Personal Factors/Comorbidities 1-2 Number of Body Systems Impaired 3 Clinical Presentation at Evaluation Evolving Impairments Impairments Gait Soft Tissue Mobility Strength Goals Two Impairment Strength Short Term Goal (STG) The patient will have 4+/5 medial hamstring strength. STG Duration 4 weeks [employer] Internship Goal (LTG) The patient will improve her LE strength so that she can move from sit to stand without UE support and without pain. LTG Duration 8 weeks One Impairment Gait Short Term Goal (STG) The patient will ambulate for 10 minutes without antalgic gait or feeling that her leg will buckle. STG Duration 4 weeks [employer]ship Goal (LTG) The patient will ascend and descend the stairs without leg pain. LTG Duration 8 weeks Assessment Summary Assessment The patient reports continuing posterior knee pain. She does have tenderness at the insertion of medial hamstrings and weakness with manual muscle testing of the medial hamstrings. Her feeling of the knee giving way appears to be more muscular in nature at this time, so she will benefit from a progressive strengthening program and then we will reassess her knee function if she is continuing to have dysfunction. Physical Therapy Plan Frequency and Duration Frequency of Treatment 2x/Week Duration of Treatment 8 weeks Plan of Care Start Date 04/14/18 Plan of Care End Date 06/09/18 Therapeutic Interventions Therapeutic Interventions Gait Training Home Exercise Program Manual Therapy Neuromuscular Re-education Self-Care/Home Management Soft Tissue Mobilization Therapeutic Activities Therapeutic Exercises Modalities Cold Pack/Ice Massage Electric Stimulation Hot Packs Ultrasound Next Visit Focus/Plan Next Note Type Treatment Note Next Visit Plan Progress hamstring strengthening
--- NOTE | 2018-04-18 12:02 | PT.OPPOC ---
Current Diagnoses Pain in left knee (04/14/18) Pain in left lower leg (04/14/18) Provider Visit Care Team Role Provider Type Juanito Valenzuela MD Primary Care Provider Physician Specialty: Internal Medicine Address: [address] [place] [address], [id number] Email: Yolette Keenan PA-C Attending Provider Physician Specialty: Internal Medicine Address: [address] [place] [address], [id number] Email: Plan Of Care PT-OP-T Assessment and Plan Start: 04/14/18 07:08 Freq: Status: Active Protocol: Document 04/14/18 14:30 AMB (Rec: 04/18/18 09:43 AMB [email or web address]) Physical Therapy Assessment Rehab Potential Rehabilitation Potential Good Evaluation Complexity Number of Personal Factors/Comorbidities 1-2 Number of Body Systems Impaired 3 Clinical Presentation at Evaluation Evolving Impairments Impairments Gait Soft Tissue Mobility Strength Goals Two Impairment Strength Short Term Goal (STG) The patient will have 4+/5 medial hamstring strength. STG Duration 4 weeks Fpc Goal (LTG) The patient will improve her LE strength so that she can move from sit to stand without UE support and without pain. LTG Duration 8 weeks One Impairment Gait Short Term Goal (STG) The patient will ambulate for 10 minutes without antalgic gait or feeling that her leg will buckle. STG Duration 4 weeks Coding Technician Goal (LTG) The patient will ascend and descend the stairs without leg pain. LTG Duration 8 weeks Assessment Summary Assessment The patient reports continuing posterior knee pain. She does have tenderness at the insertion of medial hamstrings and weakness with manual muscle testing of the medial hamstrings. Her feeling of the knee giving way appears to be more muscular in nature at this time, so she will benefit from a progressive strengthening program and then we will reassess her knee function if she is continuing to have dysfunction. Physical Therapy Plan Frequency and Duration Frequency of Treatment 2x/Week Duration of Treatment 8 weeks Plan of Care Start Date 04/14/18 Plan of Care End Date 06/09/18 Therapeutic Interventions Therapeutic Interventions Gait Training Home Exercise Program Manual Therapy Neuromuscular Re-education Self-Care/Home Management Soft Tissue Mobilization Therapeutic Activities Therapeutic Exercises Modalities Cold Pack/Ice Massage Electric Stimulation Hot Packs Ultrasound Next Visit Focus/Plan Next Note Type Treatment Note Next Visit Plan Progress hamstring strengthening Plan of Care Dates Plan of Care Start Date 04/14/18 Plan of Care End Date 06/09/18 Please Sign and Return: I have reviewed this Plan of Care and certify that the skilled therapy services above are required to meet the patient?s needs. Physician Signature Date Printed Name and Credentials Clinical Instructor Signature Printed Name and Credentials
--- NOTE | 2018-04-28 17:06 | PT.OTN ---
Current Diagnoses Pain in left knee (04/28/18) Pain in left lower leg (04/28/18) Physical Therapy Treatment Note PT-OP-A Visit Information Start: 04/14/18 07:08 Freq: Status: Active Protocol: Document 04/28/18 14:30 AMB (Rec: 04/28/18 14:41 AMB [email or web address]) Out-Patient Physical Therapy Visit Information Visit Information Visit Type Treatment Note Visit Start Time 14:30 Visit Stop Time 15:15 Total Visit Minutes 45 Visit Number 2 PT-OP-B Current Condition Start: 04/14/18 07:08 Freq: Status: Active Protocol: Document 04/14/18 14:30 AMB (Rec: 04/15/18 07:29 AMB [email or web address]) Current Condition History of Current Condition Onset Date January 2018 Current Complaints L posterior/medial knee pain, can go into calf History of Current Condition The patient reports that she was carrying a piece of furniture down the stairs and felt pain in her left leg. Since then the pain has been staying the same or getting worse. No pain at rest, but with walking. Sharp pain after 3-4 steps especially after she has been driving or sitting in her recliner. Treatment Goals Patient/Caregiver Goals Walk without feeling leg will give way Prior Functional Status Baseline Function- ADL's Independent Baseline Function- Mobility Independent Current Functional Impairments (Reported) Functional Limitations- Mobility/Gait Difficulty walking, rolling over in bed Personal Factors Other Personal Factors That May Effect History R plantar fasciitis, Therapy/Recovery afib PT-OP-C Subjective Start: 04/14/18 07:08 Freq: Status: Active Protocol: Document 04/28/18 14:30 AMB (Rec: 04/28/18 14:41 AMB [id number]) OP-PT Subjective Patient Comments Patient Comments Pt has been noticing more difficulty sleeping due to the pain. Noticing more calf pain at night, walking does increase the pain, worst in the evenings, and when first walking. PT-OP-G Mobility & Gait Start: 04/14/18 07:08 Freq: Status: Active Protocol: Document 04/14/18 14:30 AMB (Rec: 04/18/18 09:25 AMB [email or web address]) OP Gait Assessment Comments Gait Comments Pt ambulates with WBOS decreased trunk rotation. PT-OP-J Posture/Palpation/Skin Start: 04/18/18 12:00 Freq: Status: Active Protocol: Document 04/14/18 14:30 AMB (Rec: 04/18/18 12:01 AMB [email or web address]) Palpation Assessment Location One Palpation Location posterior knee Palpation Findings Edema Soft Tissue Tightness Tenderness Palpation Details tenderness at medial hamstring insertion. Mild edema present at popliteal fossa. PT-OP-K Range of Motion Start: 04/14/18 07:08 Freq: Status: Active Protocol: Document 04/14/18 14:30 AMB (Rec: 04/18/18 09:25 AMB [email or web address]) Knee Goniometric Range of Motion Knee Measured in Degrees Right Knee ROM WFL Yes Left Flexion Active (degrees) 120 Extension Active (degrees) 0 Knee ROM Limitations Comments missing 25 degrees in 90-90 position PT-OP-L Special Tests Start: 04/14/18 07:08 Freq: Status: Active Protocol: Document 04/14/18 14:30 AMB (Rec: 04/18/18 09:25 AMB [email or web address]) Special Tests Knee Special Tests Martin Test Test Results negative Shadi's Test Results negative PT-OP-M Strength Start: 04/14/18 07:08 Freq: Status: Active Protocol: Document 04/14/18 14:30 AMB (Rec: 04/18/18 09:25 AMB [email or web address]) Hip Strength Hip Manual Muscle Testing Right Flexion (L2) 4+ Good+ Extension (S1) 4 Good Abduction 4+ Good+ Adduction 4+ Good+ Left Flexion (L2) 4+ Good+ Extension (S1) 4 Good Abduction 4+ Good+ Adduction 4+ Good+ Knee Strength Knee Manual Muscle Testing Right Flexion (S2) 4+ Good+ Extension (L3) 4+ Good+ Left Flexion (S2) 4- Good- Extension (L3) 4+ Good+ PT-OP-Q Treatments Start: 04/14/18 07:08 Freq: Status: Active Protocol: Document 04/28/18 14:30 AMB (Rec: 05/02/18 17:05 AMB [email or web address]) Cardio Equipment Recumbent Elliptical (Biodex) Duration (Minutes) 5 Resistance 4 Therapeutic Exercises Standing Exercises 6 Standing Exercise Name hamstring stretch Reps/Minutes 30x2 Comments step 5 Standing Exercise Name calf stretch Comments JAKUB 4 Standing Exercise Name mini squat 3 Standing Exercise Name hamstring curl Resistance #3 tband Reps/Minutes 10 2 Standing Exercise Name hip abd Equipment Used #3 t band Reps/Minutes 2x10 1 Standing Exercise Name hip ext Equipment Used #3 t band Reps/Minutes 2x10 Manual Therapy Treatment Soft Tissue Mobilization 3 Body Location hamstring insertion PT-OP-R Modalities Start: 04/14/18 07:08 Freq: Status: Active Protocol: Document 04/28/18 14:30 AMB (Rec: 05/02/18 17:05 AMB [email or web address]) Hot Pack/Cold Pack Treatment Cold Pack Location posterior knee Patient Position Hooklying Treatment Duration (minutes) 10 PT-OP-T Assessment and Plan Start: 04/14/18 07:08 Freq: Status: Active Protocol: Document 04/28/18 14:30 AMB (Rec: 05/02/18 17:05 AMB [email or web address]) Physical Therapy Assessment Assessment Summary Assessment Pt continues to have posterior knee pain that is palpable and reproducable with calf and hamstring stretching. Physical Therapy Plan Next Visit Focus/Plan Next Note Type Treatment Note Next Visit Plan Progress hamstring strengthening
--- NOTE | 2018-05-05 15:42 | PT.OTN ---
Current Diagnoses Pain in left knee (05/05/18) Pain in left lower leg (05/05/18) Physical Therapy Treatment Note PT-OP-A Visit Information Start: 04/14/18 07:08 Freq: Status: Active Protocol: Document 05/05/18 14:30 AMB (Rec: 05/05/18 14:42 AMB [id number]) Out-Patient Physical Therapy Visit Information Visit Information Visit Type Treatment Note Visit Start Time 14:30 Visit Stop Time 15:15 Total Visit Minutes 45 Visit Number 3 PT-OP-B Current Condition Start: 04/14/18 07:08 Freq: Status: Active Protocol: Document 04/14/18 14:30 AMB (Rec: 04/15/18 07:29 AMB [email or web address]) Current Condition History of Current Condition Onset Date January 2018 Current Complaints L posterior/medial knee pain, can go into calf History of Current Condition The patient reports that she was carrying a piece of furniture down the stairs and felt pain in her left leg. Since then the pain has been staying the same or getting worse. No pain at rest, but with walking. Sharp pain after 3-4 steps especially after she has been driving or sitting in her recliner. Treatment Goals Patient/Caregiver Goals Walk without feeling leg will give way Prior Functional Status Baseline Function- ADL's Independent Baseline Function- Mobility Independent Current Functional Impairments (Reported) Functional Limitations- Mobility/Gait Difficulty walking, rolling over in bed Personal Factors Other Personal Factors That May Effect History R plantar fasciitis, Therapy/Recovery afib PT-OP-C Subjective Start: 04/14/18 07:08 Freq: Status: Active Protocol: Document 05/05/18 14:30 AMB (Rec: 05/05/18 14:42 AMB [email or web address]) OP-PT Subjective Patient Comments Patient Comments Pt is doing slightly better. PT-OP-G Mobility & Gait Start: 04/14/18 07:08 Freq: Status: Active Protocol: Document 04/14/18 14:30 AMB (Rec: 04/18/18 09:25 AMB [email or web address]) OP Gait Assessment Comments Gait Comments Pt ambulates with WBOS decreased trunk rotation. PT-OP-J Posture/Palpation/Skin Start: 04/18/18 12:00 Freq: Status: Active Protocol: Document 04/14/18 14:30 AMB (Rec: 04/18/18 12:01 AMB [email or web address]) Palpation Assessment Location One Palpation Location posterior knee Palpation Findings Edema Soft Tissue Tightness Tenderness Palpation Details tenderness at medial hamstring insertion. Mild edema present at popliteal fossa. PT-OP-K Range of Motion Start: 04/14/18 07:08 Freq: Status: Active Protocol: Document 04/14/18 14:30 AMB (Rec: 04/18/18 09:25 AMB [email or web address]) Knee Goniometric Range of Motion Knee Measured in Degrees Right Knee ROM WFL Yes Left Flexion Active (degrees) 120 Extension Active (degrees) 0 Knee ROM Limitations Comments missing 25 degrees in 90-90 position PT-OP-L Special Tests Start: 04/14/18 07:08 Freq: Status: Active Protocol: Document 04/14/18 14:30 AMB (Rec: 04/18/18 09:25 AMB [email or web address]) Special Tests Knee Special Tests Martin Test Test Results negative Shadi's Test Results negative PT-OP-M Strength Start: 04/14/18 07:08 Freq: Status: Active Protocol: Document 04/14/18 14:30 AMB (Rec: 04/18/18 09:25 AMB [email or web address]) Hip Strength Hip Manual Muscle Testing Right Flexion (L2) 4+ Good+ Extension (S1) 4 Good Abduction 4+ Good+ Adduction 4+ Good+ Left Flexion (L2) 4+ Good+ Extension (S1) 4 Good Abduction 4+ Good+ Adduction 4+ Good+ Knee Strength Knee Manual Muscle Testing Right Flexion (S2) 4+ Good+ Extension (L3) 4+ Good+ Left Flexion (S2) 4- Good- Extension (L3) 4+ Good+ PT-OP-Q Treatments Start: 04/14/18 07:08 Freq: Status: Active Protocol: Document 05/05/18 14:30 AMB (Rec: 05/05/18 15:39 AMB [email or web address]) Therapeutic Exercises Standing Exercises 6 Standing Exercise Name hamstring stretch Reps/Minutes 30x2 Comments step 5 Standing Exercise Name calf stretch Comments JAKUB Manual Therapy Treatment Soft Tissue Mobilization 3 Body Location hamstring insertion, medial calf Mobilization Type Myofascial Release Strumming Trigger Point Release Intensity/Depth Moderate Body Position Sidelying PT-OP-R Modalities Start: 04/14/18 07:08 Freq: Status: Active Protocol: Document 05/05/18 14:30 AMB (Rec: 05/05/18 15:41 AMB [email or web address]) Ultrasound Therapy Treatment Left Posterior Knee Treatment Duration (minutes) 8 Patient Position Sidelying Coupling Medium Ultrasound Gel Frequency Setting (mHz) 1 Mode Setting Continuous Intensity Setting (w/cm2) 1.2 PT-OP-T Assessment and Plan Start: 04/14/18 07:08 Freq: Status: Active Protocol: Document 05/05/18 14:30 AMB (Rec: 05/05/18 15:39 AMB [email or web address]) Physical Therapy Plan Next Visit Focus/Plan Next Note Type Treatment Note Next Visit Plan Progress hamstring and calf strengthening
--- NOTE | 2018-05-11 15:26 | PT.OTN ---
Current Diagnoses Pain in left knee (05/11/18) Pain in left lower leg (05/11/18) Physical Therapy Treatment Note PT-OP-A Visit Information Start: 04/14/18 07:08 Freq: Status: Active Protocol: Document 05/11/18 10:30 AMB (Rec: 05/11/18 12:57 AMB [email or web address]) Out-Patient Physical Therapy Visit Information Visit Information Visit Type Treatment Note Visit Start Time 10:30 Visit Stop Time 11:15 Total Visit Minutes 45 Visit Number 4 PT-OP-B Current Condition Start: 04/14/18 07:08 Freq: Status: Active Protocol: Document 04/14/18 14:30 AMB (Rec: 04/15/18 07:29 AMB [email or web address]) Current Condition History of Current Condition Onset Date January 2018 Current Complaints L posterior/medial knee pain, can go into calf History of Current Condition The patient reports that she was carrying a piece of furniture down the stairs and felt pain in her left leg. Since then the pain has been staying the same or getting worse. No pain at rest, but with walking. Sharp pain after 3-4 steps especially after she has been driving or sitting in her recliner. Treatment Goals Patient/Caregiver Goals Walk without feeling leg will give way Prior Functional Status Baseline Function- ADL's Independent Baseline Function- Mobility Independent Current Functional Impairments (Reported) Functional Limitations- Mobility/Gait Difficulty walking, rolling over in bed Personal Factors Other Personal Factors That May Effect History R plantar fasciitis, Therapy/Recovery afib PT-OP-C Subjective Start: 04/14/18 07:08 Freq: Status: Active Protocol: Document 05/11/18 10:30 AMB (Rec: 05/11/18 12:57 AMB [email or web address]) OP-PT Subjective Patient Comments Patient Comments Pt slept better last night, but is still noticing pain with descending stairs and feels weakness on the left. PT-OP-G Mobility & Gait Start: 04/14/18 07:08 Freq: Status: Active Protocol: Document 04/14/18 14:30 AMB (Rec: 04/18/18 09:25 AMB [email or web address]) OP Gait Assessment Comments Gait Comments Pt ambulates with WBOS decreased trunk rotation. PT-OP-J Posture/Palpation/Skin Start: 04/18/18 12:00 Freq: Status: Active Protocol: Document 04/14/18 14:30 AMB (Rec: 04/18/18 12:01 AMB [email or web address]) Palpation Assessment Location One Palpation Location posterior knee Palpation Findings Edema Soft Tissue Tightness Tenderness Palpation Details tenderness at medial hamstring insertion. Mild edema present at popliteal fossa. PT-OP-K Range of Motion Start: 04/14/18 07:08 Freq: Status: Active Protocol: Document 04/14/18 14:30 AMB (Rec: 04/18/18 09:25 AMB [email or web address]) Knee Goniometric Range of Motion Knee Measured in Degrees Right Knee ROM WFL Yes Left Flexion Active (degrees) 120 Extension Active (degrees) 0 Knee ROM Limitations Comments missing 25 degrees in 90-90 position PT-OP-L Special Tests Start: 04/14/18 07:08 Freq: Status: Active Protocol: Document 04/14/18 14:30 AMB (Rec: 04/18/18 09:25 AMB [email or web address]) Special Tests Knee Special Tests Martin Test Test Results negative Shadi's Test Results negative PT-OP-M Strength Start: 04/14/18 07:08 Freq: Status: Active Protocol: Document 04/14/18 14:30 AMB (Rec: 04/18/18 09:25 AMB [email or web address]) Hip Strength Hip Manual Muscle Testing Right Flexion (L2) 4+ Good+ Extension (S1) 4 Good Abduction 4+ Good+ Adduction 4+ Good+ Left Flexion (L2) 4+ Good+ Extension (S1) 4 Good Abduction 4+ Good+ Adduction 4+ Good+ Knee Strength Knee Manual Muscle Testing Right Flexion (S2) 4+ Good+ Extension (L3) 4+ Good+ Left Flexion (S2) 4- Good- Extension (L3) 4+ Good+ PT-OP-Q Treatments Start: 04/14/18 07:08 Freq: Status: Active Protocol: Document 05/11/18 10:30 AMB (Rec: 05/11/18 15:25 AMB [email or web address]) Therapeutic Exercises Standing Exercises 9 Standing Exercise Name step up Reps/Minutes 2x10 Comments 4 then 6 8 Standing Exercise Name squat Reps/Minutes 10 Comments partial 7 Standing Exercise Name heel raise Comments bilateral then unilateral 6 Standing Exercise Name hamstring stretch Reps/Minutes 30x2 Comments step 5 Standing Exercise Name calf stretch Comments JAKUB Manual Therapy Treatment Soft Tissue Mobilization 3 Body Location hamstring insertion, medial calf Mobilization Type Myofascial Release Strumming Trigger Point Release Intensity/Depth Moderate Body Position Sidelying PT-OP-R Modalities Start: 04/14/18 07:08 Freq: Status: Active Protocol: Document 05/05/18 14:30 AMB (Rec: 05/05/18 15:41 AMB [email or web address]) Ultrasound Therapy Treatment Left Posterior Knee Treatment Duration (minutes) 8 Patient Position Sidelying Coupling Medium Ultrasound Gel Frequency Setting (mHz) 1 Mode Setting Continuous Intensity Setting (w/cm2) 1.2 PT-OP-T Assessment and Plan Start: 04/14/18 07:08 Freq: Status: Active Protocol: Document 05/11/18 10:30 AMB (Rec: 05/11/18 12:57 AMB [email or web address]) Physical Therapy Assessment Assessment Summary Assessment Pt shows weakness with squat and unilateral heel raise. Physical Therapy Plan Next Visit Focus/Plan Next Note Type Treatment Note Next Visit Plan Progress hamstring and calf strengthening
--- NOTE | 2018-05-19 08:05 | PT.OTN ---
Current Diagnoses Pain in left knee (05/18/18) Pain in left lower leg (05/18/18) Physical Therapy Treatment Note PT-OP-A Visit Information Start: 04/14/18 07:08 Freq: Status: Active Protocol: Document 05/18/18 10:30 AMB (Rec: 05/18/18 10:43 AMB [id number]) Out-Patient Physical Therapy Visit Information Visit Information Visit Type Treatment Note Visit Start Time 10:30 Visit Stop Time 11:15 Total Visit Minutes 45 Visit Number 5 PT-OP-B Current Condition Start: 04/14/18 07:08 Freq: Status: Active Protocol: Document 04/14/18 14:30 AMB (Rec: 04/15/18 07:29 AMB [email or web address]) Current Condition History of Current Condition Onset Date January 2018 Current Complaints L posterior/medial knee pain, can go into calf History of Current Condition The patient reports that she was carrying a piece of furniture down the stairs and felt pain in her left leg. Since then the pain has been staying the same or getting worse. No pain at rest, but with walking. Sharp pain after 3-4 steps especially after she has been driving or sitting in her recliner. Treatment Goals Patient/Caregiver Goals Walk without feeling leg will give way Prior Functional Status Baseline Function- ADL's Independent Baseline Function- Mobility Independent Current Functional Impairments (Reported) Functional Limitations- Mobility/Gait Difficulty walking, rolling over in bed Personal Factors Other Personal Factors That May Effect History R plantar fasciitis, Therapy/Recovery afib PT-OP-C Subjective Start: 04/14/18 07:08 Freq: Status: Active Protocol: Document 05/18/18 10:30 AMB (Rec: 05/18/18 10:43 AMB [id number]) OP-PT Subjective Patient Comments Patient Comments Pt has been sleeping better, but continues to have pain with walking. PT-OP-G Mobility & Gait Start: 04/14/18 07:08 Freq: Status: Active Protocol: Document 04/14/18 14:30 AMB (Rec: 04/18/18 09:25 AMB [email or web address]) OP Gait Assessment Comments Gait Comments Pt ambulates with WBOS decreased trunk rotation. PT-OP-J Posture/Palpation/Skin Start: 04/18/18 12:00 Freq: Status: Active Protocol: Document 04/14/18 14:30 AMB (Rec: 04/18/18 12:01 AMB [email or web address]) Palpation Assessment Location One Palpation Location posterior knee Palpation Findings Edema Soft Tissue Tightness Tenderness Palpation Details tenderness at medial hamstring insertion. Mild edema present at popliteal fossa. PT-OP-K Range of Motion Start: 04/14/18 07:08 Freq: Status: Active Protocol: Document 04/14/18 14:30 AMB (Rec: 04/18/18 09:25 AMB [email or web address]) Knee Goniometric Range of Motion Knee Measured in Degrees Right Knee ROM WFL Yes Left Flexion Active (degrees) 120 Extension Active (degrees) 0 Knee ROM Limitations Comments missing 25 degrees in 90-90 position PT-OP-L Special Tests Start: 04/14/18 07:08 Freq: Status: Active Protocol: Document 04/14/18 14:30 AMB (Rec: 04/18/18 09:25 AMB [email or web address]) Special Tests Knee Special Tests Martin Test Test Results negative Shadi's Test Results negative PT-OP-M Strength Start: 04/14/18 07:08 Freq: Status: Active Protocol: Document 04/14/18 14:30 AMB (Rec: 04/18/18 09:25 AMB [email or web address]) Hip Strength Hip Manual Muscle Testing Right Flexion (L2) 4+ Good+ Extension (S1) 4 Good Abduction 4+ Good+ Adduction 4+ Good+ Left Flexion (L2) 4+ Good+ Extension (S1) 4 Good Abduction 4+ Good+ Adduction 4+ Good+ Knee Strength Knee Manual Muscle Testing Right Flexion (S2) 4+ Good+ Extension (L3) 4+ Good+ Left Flexion (S2) 4- Good- Extension (L3) 4+ Good+ PT-OP-Q Treatments Start: 04/14/18 07:08 Freq: Status: Active Protocol: Document 05/18/18 10:30 AMB (Rec: 05/19/18 08:04 AMB [email or web address]) Cardio Equipment Recumbent Bicycle Duration (Minutes) 8 Resistance 4 Seat Position 3 Gym Equipment Cable Column (Body Solid) Leg Curl Resistance 20 Reps/Time 3x10 Therapeutic Exercises Standing Exercises 7 Standing Exercise Name heel raise Comments bilateral then unilateral 6 Standing Exercise Name hamstring stretch Reps/Minutes 30x2 Comments step 5 Standing Exercise Name calf stretch Comments JAKUB 2 Standing Exercise Name hip abd Equipment Used #3 t band Reps/Minutes 2x10 PT-OP-R Modalities Start: 04/14/18 07:08 Freq: Status: Active Protocol: Document 05/05/18 14:30 AMB (Rec: 05/05/18 15:41 AMB [email or web address]) Ultrasound Therapy Treatment Left Posterior Knee Treatment Duration (minutes) 8 Patient Position Sidelying Coupling Medium Ultrasound Gel Frequency Setting (mHz) 1 Mode Setting Continuous Intensity Setting (w/cm2) 1.2 PT-OP-T Assessment and Plan Start: 04/14/18 07:08 Freq: Status: Active Protocol: Document 05/18/18 10:30 AMB (Rec: 05/19/18 08:04 AMB [email or web address]) Physical Therapy Assessment Goals Two Impairment Strength Short Term Goal (STG) The patient will have 4+/5 medial hamstring strength. STG Duration 4 weeks Correction Goal (LTG) The patient will improve her LE strength so that she can move from sit to stand without UE support and without pain. LTG Duration 8 weeks One Impairment Gait Short Term Goal (STG) The patient will ambulate for 10 minutes without antalgic gait or feeling that her leg will buckle. STG Duration 4 weeks Correction Goal (LTG) The patient will ascend and descend the stairs without leg pain. LTG Duration 8 weeks Assessment Summary Assessment Will need to progress squat form. Pt had a decrease in pain after manual therapy immediately, but will need to track how long that lasts. Physical Therapy Plan Frequency and Duration Frequency of Treatment 2x/Week Duration of Treatment 8 weeks Plan of Care Start Date 04/14/18 Plan of Care End Date 06/09/18 Next Visit Focus/Plan Next Note Type Treatment Note Next Visit Plan Progress hamstring and calf strengthening
--- NOTE | 2018-05-25 12:39 | PT.OTN ---
Current Diagnoses Pain in left knee (05/25/18) Pain in left lower leg (05/25/18) Physical Therapy Treatment Note PT-OP-A Visit Information Start: 04/14/18 07:08 Freq: Status: Active Protocol: Document 05/25/18 10:30 AMB (Rec: 05/25/18 10:40 AMB [id number]) Out-Patient Physical Therapy Visit Information Visit Information Visit Type Treatment Note Visit Start Time 10:30 Visit Stop Time 11:15 Total Visit Minutes 45 Visit Number 6 PT-OP-B Current Condition Start: 04/14/18 07:08 Freq: Status: Active Protocol: Document 04/14/18 14:30 AMB (Rec: 04/15/18 07:29 AMB [email or web address]) Current Condition History of Current Condition Onset Date January 2018 Current Complaints L posterior/medial knee pain, can go into calf History of Current Condition The patient reports that she was carrying a piece of furniture down the stairs and felt pain in her left leg. Since then the pain has been staying the same or getting worse. No pain at rest, but with walking. Sharp pain after 3-4 steps especially after she has been driving or sitting in her recliner. Treatment Goals Patient/Caregiver Goals Walk without feeling leg will give way Prior Functional Status Baseline Function- ADL's Independent Baseline Function- Mobility Independent Current Functional Impairments (Reported) Functional Limitations- Mobility/Gait Difficulty walking, rolling over in bed Personal Factors Other Personal Factors That May Effect History R plantar fasciitis, Therapy/Recovery afib PT-OP-C Subjective Start: 04/14/18 07:08 Freq: Status: Active Protocol: Document 05/25/18 10:30 AMB (Rec: 05/25/18 10:40 AMB [email or web address]) OP-PT Subjective Patient Comments Patient Comments Pt notices limping with extended walking. PT-OP-G Mobility & Gait Start: 04/14/18 07:08 Freq: Status: Active Protocol: Document 04/14/18 14:30 AMB (Rec: 04/18/18 09:25 AMB [email or web address]) OP Gait Assessment Comments Gait Comments Pt ambulates with WBOS decreased trunk rotation. PT-OP-J Posture/Palpation/Skin Start: 04/18/18 12:00 Freq: Status: Active Protocol: Document 04/14/18 14:30 AMB (Rec: 04/18/18 12:01 AMB [email or web address]) Palpation Assessment Location One Palpation Location posterior knee Palpation Findings Edema Soft Tissue Tightness Tenderness Palpation Details tenderness at medial hamstring insertion. Mild edema present at popliteal fossa. PT-OP-K Range of Motion Start: 04/14/18 07:08 Freq: Status: Active Protocol: Document 04/14/18 14:30 AMB (Rec: 04/18/18 09:25 AMB [email or web address]) Knee Goniometric Range of Motion Knee Measured in Degrees Right Knee ROM WFL Yes Left Flexion Active (degrees) 120 Extension Active (degrees) 0 Knee ROM Limitations Comments missing 25 degrees in 90-90 position PT-OP-L Special Tests Start: 04/14/18 07:08 Freq: Status: Active Protocol: Document 04/14/18 14:30 AMB (Rec: 04/18/18 09:25 AMB [email or web address]) Special Tests Knee Special Tests Martin Test Test Results negative Shadi's Test Results negative PT-OP-M Strength Start: 04/14/18 07:08 Freq: Status: Active Protocol: Document 04/14/18 14:30 AMB (Rec: 04/18/18 09:25 AMB [email or web address]) Hip Strength Hip Manual Muscle Testing Right Flexion (L2) 4+ Good+ Extension (S1) 4 Good Abduction 4+ Good+ Adduction 4+ Good+ Left Flexion (L2) 4+ Good+ Extension (S1) 4 Good Abduction 4+ Good+ Adduction 4+ Good+ Knee Strength Knee Manual Muscle Testing Right Flexion (S2) 4+ Good+ Extension (L3) 4+ Good+ Left Flexion (S2) 4- Good- Extension (L3) 4+ Good+ PT-OP-Q Treatments Start: 04/14/18 07:08 Freq: Status: Active Protocol: Document 05/25/18 12:30 AMB (Rec: 05/25/18 12:38 AMB [email or web address]) Cardio Equipment Recumbent Bicycle Duration (Minutes) 8 Resistance 4 Seat Position 3 Gym Equipment Shuttle Recovery Bilateral Squats Resistance 50# Reps/Time 2x10 Therapeutic Exercises Standing Exercises 8 Standing Exercise Name squat Reps/Minutes 10 Comments partial 7 Standing Exercise Name heel raise Comments bilateral then unilateral 6 Standing Exercise Name hamstring stretch Reps/Minutes 30x2 Comments step 5 Standing Exercise Name calf stretch Comments JAKUB Manual Therapy Treatment Soft Tissue Mobilization 3 Body Location hamstring insertion, medial calf Mobilization Type Myofascial Release Strumming Trigger Point Release Intensity/Depth Moderate Body Position Sidelying Neuro Re-Education Treatment Balance Activities 1 Details single leg balance PT-OP-R Modalities Start: 04/14/18 07:08 Freq: Status: Active Protocol: Document 05/05/18 14:30 AMB (Rec: 05/05/18 15:41 AMB [email or web address]) Ultrasound Therapy Treatment Left Posterior Knee Treatment Duration (minutes) 8 Patient Position Sidelying Coupling Medium Ultrasound Gel Frequency Setting (mHz) 1 Mode Setting Continuous Intensity Setting (w/cm2) 1.2 PT-OP-T Assessment and Plan Start: 04/14/18 07:08 Freq: Status: Active Protocol: Document 05/25/18 12:30 AMB (Rec: 05/25/18 12:38 AMB [email or web address]) Physical Therapy Assessment Assessment Summary Assessment Continued poor balance and weak unilateral heel raise. But improvement in strength is visible. Physical Therapy Plan Next Visit Focus/Plan Next Note Type Treatment Note Next Visit Plan Progress hamstring and calf strengthening
--- NOTE | 2018-06-01 12:59 | PT.OTN ---
Current Diagnoses Pain in left knee (06/01/18) Pain in left lower leg (06/01/18) Physical Therapy Treatment Note PT-OP-A Visit Information Start: 04/14/18 07:08 Freq: Status: Active Protocol: Document 06/01/18 10:30 AMB (Rec: 06/01/18 12:56 AMB [email or web address]) Out-Patient Physical Therapy Visit Information Visit Information Visit Type Treatment Note Visit Start Time 10:30 Visit Stop Time 11:15 Total Visit Minutes 45 Visit Number 7 PT-OP-B Current Condition Start: 04/14/18 07:08 Freq: Status: Active Protocol: Document 04/14/18 14:30 AMB (Rec: 04/15/18 07:29 AMB [email or web address]) Current Condition History of Current Condition Onset Date January 2018 Current Complaints L posterior/medial knee pain, can go into calf History of Current Condition The patient reports that she was carrying a piece of furniture down the stairs and felt pain in her left leg. Since then the pain has been staying the same or getting worse. No pain at rest, but with walking. Sharp pain after 3-4 steps especially after she has been driving or sitting in her recliner. Treatment Goals Patient/Caregiver Goals Walk without feeling leg will give way Prior Functional Status Baseline Function- ADL's Independent Baseline Function- Mobility Independent Current Functional Impairments (Reported) Functional Limitations- Mobility/Gait Difficulty walking, rolling over in bed Personal Factors Other Personal Factors That May Effect History R plantar fasciitis, Therapy/Recovery afib PT-OP-C Subjective Start: 04/14/18 07:08 Freq: Status: Active Protocol: Document 06/01/18 10:30 AMB (Rec: 06/01/18 12:56 AMB [email or web address]) OP-PT Subjective Patient Comments Patient Comments Pt continues to note knee pain with extended walking: mostly medial and posterior, but now radiating into the anterior medial knee too. PT-OP-G Mobility & Gait Start: 04/14/18 07:08 Freq: Status: Active Protocol: Document 04/14/18 14:30 AMB (Rec: 04/18/18 09:25 AMB [email or web address]) OP Gait Assessment Comments Gait Comments Pt ambulates with WBOS decreased trunk rotation. PT-OP-J Posture/Palpation/Skin Start: 04/18/18 12:00 Freq: Status: Active Protocol: Document 04/14/18 14:30 AMB (Rec: 04/18/18 12:01 AMB [email or web address]) Palpation Assessment Location One Palpation Location posterior knee Palpation Findings Edema Soft Tissue Tightness Tenderness Palpation Details tenderness at medial hamstring insertion. Mild edema present at popliteal fossa. PT-OP-K Range of Motion Start: 04/14/18 07:08 Freq: Status: Active Protocol: Document 04/14/18 14:30 AMB (Rec: 04/18/18 09:25 AMB [email or web address]) Knee Goniometric Range of Motion Knee Measured in Degrees Right Knee ROM WFL Yes Left Flexion Active (degrees) 120 Extension Active (degrees) 0 Knee ROM Limitations Comments missing 25 degrees in 90-90 position PT-OP-L Special Tests Start: 04/14/18 07:08 Freq: Status: Active Protocol: Document 04/14/18 14:30 AMB (Rec: 04/18/18 09:25 AMB [email or web address]) Special Tests Knee Special Tests Martin Test Test Results negative Shadi's Test Results negative PT-OP-M Strength Start: 04/14/18 07:08 Freq: Status: Active Protocol: Document 04/14/18 14:30 AMB (Rec: 04/18/18 09:25 AMB [email or web address]) Hip Strength Hip Manual Muscle Testing Right Flexion (L2) 4+ Good+ Extension (S1) 4 Good Abduction 4+ Good+ Adduction 4+ Good+ Left Flexion (L2) 4+ Good+ Extension (S1) 4 Good Abduction 4+ Good+ Adduction 4+ Good+ Knee Strength Knee Manual Muscle Testing Right Flexion (S2) 4+ Good+ Extension (L3) 4+ Good+ Left Flexion (S2) 4- Good- Extension (L3) 4+ Good+ PT-OP-Q Treatments Start: 04/14/18 07:08 Freq: Status: Active Protocol: Document 06/01/18 10:30 AMB (Rec: 06/01/18 12:56 AMB [email or web address]) Cardio Equipment Treadmill Duration (Minutes) 8 Speed 1.8 Gym Equipment Cable Column (Body Solid) Leg Curl Details bilat Resistance 20 Reps/Time 3x10 Therapeutic Exercises Standing Exercises 8 Standing Exercise Name squat Reps/Minutes 10 Comments partial 7 Standing Exercise Name heel raise Comments bilateral then unilateral 6 Standing Exercise Name hamstring stretch Reps/Minutes 30x2 Comments step 5 Standing Exercise Name calf stretch Comments JAKUB Manual Therapy Treatment Soft Tissue Mobilization 3 Body Location hamstring insertion, medial calf Mobilization Type Myofascial Release Strumming Trigger Point Release Intensity/Depth Moderate Body Position Sidelying Neuro Re-Education Treatment Balance Activities 1 Details single leg balance PT-OP-R Modalities Start: 04/14/18 07:08 Freq: Status: Active Protocol: Document 06/01/18 10:30 AMB (Rec: 06/01/18 12:59 AMB [email or web address]) Hot Pack/Cold Pack Treatment Cold Pack Location posterior knee Patient Position Hooklying Treatment Duration (minutes) 10 PT-OP-T Assessment and Plan Start: 04/14/18 07:08 Freq: Status: Active Protocol: Document 06/01/18 10:30 AMB (Rec: 06/01/18 12:59 AMB [email or web address]) Physical Therapy Assessment Assessment Summary Assessment Reinforced icing consistently. No pain with short walks, but long walks pt notices limping. Physical Therapy Plan Next Visit Focus/Plan Next Note Type Treatment Note Next Visit Plan Progress hamstring and calf strengthening
--- NOTE | 2018-06-09 15:46 | PT.OTN ---
Current Diagnoses Pain in left knee (06/09/18) Pain in left lower leg (06/09/18) Physical Therapy Treatment Note PT-OP-A Visit Information Start: 04/14/18 07:08 Freq: Status: Active Protocol: Document 06/09/18 14:30 AMB (Rec: 06/09/18 14:44 AMB [id number]) Out-Patient Physical Therapy Visit Information Visit Information Visit Type Treatment Note Visit Start Time 14:30 Visit Stop Time 15:15 Total Visit Minutes 45 Visit Number 8 PT-OP-B Current Condition Start: 04/14/18 07:08 Freq: Status: Active Protocol: Document 04/14/18 14:30 AMB (Rec: 04/15/18 07:29 AMB [email or web address]) Current Condition History of Current Condition Onset Date January 2018 Current Complaints L posterior/medial knee pain, can go into calf History of Current Condition The patient reports that she was carrying a piece of furniture down the stairs and felt pain in her left leg. Since then the pain has been staying the same or getting worse. No pain at rest, but with walking. Sharp pain after 3-4 steps especially after she has been driving or sitting in her recliner. Treatment Goals Patient/Caregiver Goals Walk without feeling leg will give way Prior Functional Status Baseline Function- ADL's Independent Baseline Function- Mobility Independent Current Functional Impairments (Reported) Functional Limitations- Mobility/Gait Difficulty walking, rolling over in bed Personal Factors Other Personal Factors That May Effect History R plantar fasciitis, Therapy/Recovery afib PT-OP-C Subjective Start: 04/14/18 07:08 Freq: Status: Active Protocol: Document 06/09/18 14:30 AMB (Rec: 06/09/18 14:44 AMB [id number]) OP-PT Subjective Patient Comments Patient Comments Pt continues to have pain with extending the knee completely at night. PT-OP-G Mobility & Gait Start: 04/14/18 07:08 Freq: Status: Active Protocol: Document 04/14/18 14:30 AMB (Rec: 04/18/18 09:25 AMB [email or web address]) OP Gait Assessment Comments Gait Comments Pt ambulates with WBOS decreased trunk rotation. PT-OP-J Posture/Palpation/Skin Start: 04/18/18 12:00 Freq: Status: Active Protocol: Document 04/14/18 14:30 AMB (Rec: 04/18/18 12:01 AMB [email or web address]) Palpation Assessment Location One Palpation Location posterior knee Palpation Findings Edema Soft Tissue Tightness Tenderness Palpation Details tenderness at medial hamstring insertion. Mild edema present at popliteal fossa. PT-OP-K Range of Motion Start: 04/14/18 07:08 Freq: Status: Active Protocol: Document 04/14/18 14:30 AMB (Rec: 04/18/18 09:25 AMB [email or web address]) Knee Goniometric Range of Motion Knee Measured in Degrees Right Knee ROM WFL Yes Left Flexion Active (degrees) 120 Extension Active (degrees) 0 Knee ROM Limitations Comments missing 25 degrees in 90-90 position PT-OP-L Special Tests Start: 04/14/18 07:08 Freq: Status: Active Protocol: Document 04/14/18 14:30 AMB (Rec: 04/18/18 09:25 AMB [email or web address]) Special Tests Knee Special Tests Martin Test Test Results negative Shadi's Test Results negative PT-OP-M Strength Start: 04/14/18 07:08 Freq: Status: Active Protocol: Document 04/14/18 14:30 AMB (Rec: 04/18/18 09:25 AMB [email or web address]) Hip Strength Hip Manual Muscle Testing Right Flexion (L2) 4+ Good+ Extension (S1) 4 Good Abduction 4+ Good+ Adduction 4+ Good+ Left Flexion (L2) 4+ Good+ Extension (S1) 4 Good Abduction 4+ Good+ Adduction 4+ Good+ Knee Strength Knee Manual Muscle Testing Right Flexion (S2) 4+ Good+ Extension (L3) 4+ Good+ Left Flexion (S2) 4- Good- Extension (L3) 4+ Good+ PT-OP-Q Treatments Start: 04/14/18 07:08 Freq: Status: Active Protocol: Document 06/09/18 14:30 AMB (Rec: 06/09/18 15:45 AMB [email or web address]) Therapeutic Exercises Supine Exercises 3 Supine Exercise Name SLR Reps/Minutes 2x10 2 Supine Exercise Name hip add Reps/Minutes 2x10 Comments ball squeeze 1 Supine Exercise Name bridge Reps/Minutes 2x10 Standing Exercises 7 Standing Exercise Name heel raise Comments bilateral then unilateral 6 Standing Exercise Name hamstring stretch Reps/Minutes 30x2 Comments step 5 Standing Exercise Name calf stretch Comments JAKUB Manual Therapy Treatment Soft Tissue Mobilization 3 Body Location hamstring insertion, medial calf Mobilization Type Myofascial Release Strumming Trigger Point Release Intensity/Depth Moderate Body Position Sidelying PT-OP-R Modalities Start: 04/14/18 07:08 Freq: Status: Active Protocol: Document 06/09/18 14:30 AMB (Rec: 06/09/18 15:45 AMB [email or web address]) Hot Pack/Cold Pack Treatment Cold Pack Location posterior knee Patient Position Hooklying Treatment Duration (minutes) 10 PT-OP-T Assessment and Plan Start: 04/14/18 07:08 Freq: Status: Active Protocol: Document 06/09/18 14:30 AMB (Rec: 06/09/18 15:45 AMB [email or web address]) Physical Therapy Assessment Assessment Summary Assessment Pt continues to have pain with overpressure into knee extension. Some medial knee pain today, but continues to have pain over distal hamstring insertion (calf pain improving). Physical Therapy Plan Next Visit Focus/Plan Next Note Type Treatment Note Next Visit Plan Progress hamstring and calf strengthening
--- NOTE | 2018-08-11 09:31 | PT.OPDS ---
Current Diagnoses Pain in left knee (06/09/18) Pain in left lower leg (06/09/18) Provider Visit Care Team Role Provider Type Juanito Valenzuela MD Primary Care Provider Physician Specialty: Internal Medicine Address: [address] [place] [address], [phone] Email: Yolette Keenan PA-C Attending Provider Physician Specialty: Internal Medicine Address: [address] [place] [address], [id number] Email: Visit Number Visit Number 8 Discharge Summary PT-OP-B Current Condition Start: 04/14/18 07:08 Freq: Status: Active Protocol: Document 04/14/18 14:30 AMB (Rec: 04/15/18 07:29 AMB [email or web address]) Current Condition History of Current Condition Onset Date January 2018 Current Complaints L posterior/medial knee pain, can go into calf History of Current Condition The patient reports that she was carrying a piece of furniture down the stairs and felt pain in her left leg. Since then the pain has been staying the same or getting worse. No pain at rest, but with walking. Sharp pain after 3-4 steps especially after she has been driving or sitting in her recliner. Treatment Goals Patient/Caregiver Goals Walk without feeling leg will give way Prior Functional Status Baseline Function- ADL's Independent Baseline Function- Mobility Independent Current Functional Impairments (Reported) Functional Limitations- Mobility/Gait Difficulty walking, rolling over in bed Personal Factors Other Personal Factors That May Effect History R plantar fasciitis, Therapy/Recovery afib PT-OP-C Subjective Start: 04/14/18 07:08 Freq: Status: Active Protocol: Document 06/09/18 14:30 AMB (Rec: 06/09/18 14:44 AMB [id number]) OP-PT Subjective Patient Comments Patient Comments Pt continues to have pain with extending the knee completely at night. PT-OP-G Mobility & Gait Start: 04/14/18 07:08 Freq: Status: Active Protocol: Document 04/14/18 14:30 AMB (Rec: 04/18/18 09:25 AMB [email or web address]) OP Gait Assessment Comments Gait Comments Pt ambulates with WBOS decreased trunk rotation. PT-OP-J Posture/Palpation/Skin Start: 04/18/18 12:00 Freq: Status: Active Protocol: Document 04/14/18 14:30 AMB (Rec: 04/18/18 12:01 AMB [email or web address]) Palpation Assessment Location One Palpation Location posterior knee Palpation Findings Edema Soft Tissue Tightness Tenderness Palpation Details tenderness at medial hamstring insertion. Mild edema present at popliteal fossa. PT-OP-K Range of Motion Start: 04/14/18 07:08 Freq: Status: Active Protocol: Document 04/14/18 14:30 AMB (Rec: 04/18/18 09:25 AMB [email or web address]) Knee Goniometric Range of Motion Knee Measured in Degrees Right Knee ROM WFL Yes Left Flexion Active (degrees) 120 Extension Active (degrees) 0 Knee ROM Limitations Comments missing 25 degrees in 90-90 position PT-OP-L Special Tests Start: 04/14/18 07:08 Freq: Status: Active Protocol: Document 04/14/18 14:30 AMB (Rec: 04/18/18 09:25 AMB [email or web address]) Special Tests Knee Special Tests Martin Test Test Results negative Shadi's Test Results negative PT-OP-M Strength Start: 04/14/18 07:08 Freq: Status: Active Protocol: Document 04/14/18 14:30 AMB (Rec: 04/18/18 09:25 AMB [email or web address]) Hip Strength Hip Manual Muscle Testing Right Flexion (L2) 4+ Good+ Extension (S1) 4 Good Abduction 4+ Good+ Adduction 4+ Good+ Left Flexion (L2) 4+ Good+ Extension (S1) 4 Good Abduction 4+ Good+ Adduction 4+ Good+ Knee Strength Knee Manual Muscle Testing Right Flexion (S2) 4+ Good+ Extension (L3) 4+ Good+ Left Flexion (S2) 4- Good- Extension (L3) 4+ Good+ PT-OP-T Assessment and Plan Start: 04/14/18 07:08 Freq: Status: Active Protocol: Document 08/11/18 09:26 AMB (Rec: 08/11/18 09:31 AMB [email or web address]) Physical Therapy Assessment Goals Two Impairment Strength Short Term Goal (STG) The patient will have 4+/5 medial hamstring strength. STG Duration NOT MET State Game Protector Goal (LTG) The patient will improve her LE strength so that she can move from sit to stand without UE support and without pain. LTG Duration NOT MET One Impairment Gait Short Term Goal (STG) The patient will ambulate for 10 minutes without antalgic gait or feeling that her leg will buckle. STG Duration NOT MET State Game Protector Goal (LTG) The patient will ascend and descend the stairs without leg pain. LTG Duration NOT MET Assessment Summary Assessment Sylvia was seen for 8 visits of physical therapy. Over that time her leg pain improved slightly, but she continued to have pain with extended walking. She canceled her last appointment and has not called to reschedule. She has not been seen in over 2 months, so she is discharged at this time. Physical Therapy Plan Discharge Physical Therapy Discharge Reasons No Longer Attending PT
== END 2018-08-11 10:47 ==
LOC: PHYS 14:30
PROVIDERS: PCP Internal Medicine; Visit Provider Student in an Organized Health Care Education/Training Program
DX: M25.562 Pain in left knee (principal); M79.662 Pain in left lower leg
CPT/HCPCS: 97010; 97035; 97110; 97140; 97162

== ENCOUNTER → 2018-07-29 08:06 | Outpatient (CLI) | payer MEDICARE, SELFPAY ==
[2018-07-29 08:38] LABS: Add Manual Diff / Slide Review NO; Basophils Absolute Auto 100 /uL (0-100); Basophils Percent Auto 1.9 % (0-2); Eosinophils Absolute Auto 200 /uL (0-450); Eosinophils Percent Auto 3.7 % (2-4); Hematocrit 43.6 % (36-46); Hemoglobin 14.9 g/dL (12.0-16.0); Lymphocytes Absolute Auto 1300 /uL (1100-4500); Lymphocytes Percent Auto 29.2 % (25-40); Mean Corpuscular HGB Conc 34.2 % (30-36); Mean Corpuscular Hemoglobin 31.1 PG (26-34); Mean Corpuscular Volume 90.9 fL (80-100); Monocytes Absolute Auto 400 /uL (0-900); Monocytes Percent Auto 10.2 % (3-14); Neutrophils Absolute Auto 2400 /uL (1500-7000); Platelet Count 268 X10^3/uL (150-400); Red Cell Distribution Width 13.9 % (11.6-14.8); White Blood Cell Count 4.4 X10^3/uL (4.5-11.0)
[2018-07-29 09:08] LABS: Cholesterol 229 mg/dL (140-199); HDL Cholesterol 59 mg/dL (40-60); LDL Cholesterol Calculated 152 mg/dL (<100); Triglycerides 92 mg/dL (35-150)
[2018-07-29 09:38] LABS: TSH w/ Reflex to FT4 6.13 uIU/mL (0.47-4.68)
[2018-07-29 10:07] LABS: Free T4, Direct Thyroxine 1.32 ng/dL (0.78-2.19)
== END ==
PROVIDERS: PCP Student in an Organized Health Care Education/Training Program; Visit Provider Student in an Organized Health Care Education/Training Program
DX: Z00.00 Encounter for general adult medical examination without abnormal findings (principal); E78.00 Pure hypercholesterolemia, unspecified; Z13.228 Encounter for screening for other metabolic disorders
CPT/HCPCS: 36415; 80061; 84439; 84443; 85025

== ENCOUNTER → 2019-01-13 09:42 | Outpatient (CLI) | payer MEDICARE, SELFPAY ==
--- NOTE | 2019-01-13 | DI.MRI.S_ITS ---
PROCEDURE: MR KNEE RT WO CON INDICATIONS: Pain in right knee TECHNIQUE: Noncontrast sagittal PD fast spin echo and T2 fast spin echo with fat saturation, sagittal 3-D FLASH with fat saturation; coronal T1 spin echo and PD fast spin echo with fat saturation, and axial PD fast spin echo with fat saturation through the knee. COMPARISON: None. FINDINGS: Image quality: Excellent. Menisci: Truncation of the free margin of the body of the lateral meniscus image 23 series 11. Medial meniscal tear involving the posterior horn, with partial extrusion of the body. Cruciate ligaments: The anterior and posterior cruciate ligaments appear intact. Medial structures: There is medial bowing of the medial collateral ligament, with mild internal signal changes and no complete rupture. There is adjacent soft tissue edema. The appearance could reflect reactive changes to medial compartment pathology, versus low-grade sprain of the MCL. Pes anserinus tendons appear grossly unremarkable. Semimembranosus tendon appears intact. Lateral structures: The lateral collateral ligament, long and short heads of the biceps femoris tendon appear intact. The popliteus tendon appears normal; the popliteofibular ligament appears intact. The posterosuperior and anteroinferior popliteomeniscal fascicles appear intact. The arcuate and fabellofibular ligaments appear intact, on either side of the lateral inferior geniculate artery. Iliotibial band appears normal. Anterior structures: Prepatellar and superficial infrapatellar subcutaneous edema/fluid. The quadriceps and patellar tendons appear intact. Patellar alignment is normal. No femoral trochlear dysplasia or ventral trochlear prominence. No edema in the infrapatellar fat pad. Bones and cartilage: No focal marrow contusion or discrete low signal fracture line. Within the medial compartment, diffuse surface fraying of the femoral and tibial articular cartilage Within the lateral compartment, mild surface fraying of the central weightbearing femoral and tibial articular cartilage. Within the patellofemoral compartment, full-thickness loss of cartilage overlying the median patellar ridge and medial patellar facet. Diffuse surface fraying of the femoral trochlear cartilage. Subchondral marrow edema involving the medial femoral trochlea. Joint space: No pathologic joint effusion. Large Delgado's cyst measuring approximately 7 cm in the cephalocaudad dimension. No specific evidence of intra-articular loose body. Prominent osteophyte at the posterior aspect of the tibia 20 series 6. IMPRESSION: Medial meniscal tear involving posterior horn with partial extrusion. Truncation of the free margin of the body lateral meniscus. Degenerative joint disease as above. Large Delgado's cyst. Dictated by: Duane Saldivar M.D. on 01/13/2019 at 11:04 Approved by: Duane Saldivar M.D. on 01/13/2019 at 11:12
== END ==
PROVIDERS: PCP Student in an Organized Health Care Education/Training Program; Visit Provider Student in an Organized Health Care Education/Training Program
DX: M25.561 Pain in right knee (principal); S83.241A Other tear of medial meniscus, current injury, right knee, initial encounter; M17.11 Unilateral primary osteoarthritis, right knee; M71.21 Synovial cyst of popliteal space [Baker], right knee
CPT/HCPCS: 73721

== ENCOUNTER 2019-03-20 13:45 | Outpatient (RCR) | payer MEDICARE, SELFPAY ==
--- NOTE | 2019-01-23 16:54 | PT.OIE ---
Current Diagnoses Pain in right knee (01/23/19) Visit Care Team Role Provider Type Yolette Keenan PA-C Attending Provider Physician Primary Care Provider Specialty: Internal Medicine Address: [address] [place] [address], [id number] Email: [email or web address] Initial Evaluation PT-OP-A Visit Information Start: 01/24/19 14:55 Freq: Status: Active Protocol: Document 01/23/19 16:56 AW (Rec: 01/24/19 15:52 AW [id number]) Out-Patient Physical Therapy Visit Information Visit Information Visit Type Initial Evaluation Visit Start Time 15:15 Visit Stop Time 16:00 Total Visit Minutes 45 Visit Number 1 Number of PARA EDUCATOR Visits 0 Evaluation Information Evaluation Date 01/23/19 PT-OP-B Current Condition Start: 01/24/19 14:55 Freq: Status: Active Protocol: Document 01/23/19 16:56 AW (Rec: 01/24/19 15:52 AW [id number]) Current Condition History of Current Condition Onset Date 01/01/19 Current Complaints R posterior and medial knee pain History of Current Condition Pt presents with painful right knee since early January when she was getting out of her car, caught her right foot , and twisted her knee. Some time after that, she was ascending stairs and accidentally led with her right leg at which point she felt her right knee collapsed and she was in excruciating pain. She had MRI on 01/13/19 ( see below for details). In the mornings, her knee feels stiff. She noted her pain is worst at night after a busy day and is exacerbated further by trying to lie with the knee in full extension. She is limited in her ambulation distance now due to pain which she characterizes as a burning sensation in her posterior and medial knee. She reports pain is waking her from sleep several times per night. Ice has been helpful, but nothing else improves her pain. Prior Treatments and Tests Pt was previously treated at this clinic for L posterior knee pain, discharged without completing plan of care in August 2018. MRI 01/13/19: Medial meniscal tear involving posterior horn with partial extrusion. Truncation of the free margin of the body lateral meniscus. Degenerative joint disease as above. Large Delgado's cyst. Future Testing and Treatments Planned None identified Treatment Goals Patient/Caregiver Goals Pt would like to have an appropriate home exercise program and be able to ambulate with less pain. 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 Current Functional Impairments (Reported) Functional Limitations- Mobility/Gait Limited in ambulation distance and stairs navigation due to pain PT-OP-C Subjective Start: 01/24/19 14:55 Freq: Status: Active Protocol: Document 01/23/19 16:56 AW (Rec: 01/24/19 15:52 AW [id number]) OP-PT Subjective Patient Comments Patient Comments I'd like to be able to get around with less pain PT-OP-D Balance Start: 01/24/19 14:55 Freq: Status: Active Protocol: Document 01/23/19 16:56 AW (Rec: 01/24/19 15:52 AW [id number]) OP-PT Balance Assessment Sitting Balance Static Sitting Balance Ability Good Dynamic Sitting Balance Ability Good Standing Balance Static Standing Balance Ability Fair Dynamic Standing Balance Ability Fair Device Used none Standing Balance Comments single-leg stance impaired bilaterally Balance Tests Single Limb Standing Single Limb- Right 1 second Single Limb- Left 4 seconds Gamboa Fall Scale Copyright Permission PT-OP-F Manual Assessment Start: 01/24/19 14:55 Freq: Status: Active Protocol: Document 01/23/19 16:56 AW (Rec: 01/24/19 15:52 AW [id number]) Manual Assessments Joint Mobility Assessment Joint Mobility Assessment R knee with obvious Delgado's cyst in popliteal space. No restriction in tibiofemoral joint mobility. Other Manual Assessments Other Manual Assessments Point tender at medial knee ( pes anserinus region) and palpable Delgado's cyst in popliteal space PT-OP-G Mobility & Gait Start: 01/24/19 14:55 Freq: Status: Active Protocol: Document 01/23/19 16:56 AW (Rec: 01/24/19 15:52 AW [id number]) OP Gait Assessment Comments Gait Comments Pt ambulates with lateral lean to right side, decreased step length, decreased foot clearance bilaterally. No assistive device PT-OP-H Neuro Start: 01/24/19 14:55 Freq: Status: Active Protocol: Document 01/23/19 16:56 AW (Rec: 01/24/19 15:52 AW [id number]) Sensation Evaluation Gross Sensation Gross Sensation WNL PT-OP-J Posture/Palpation/Skin Start: 01/24/19 14:55 Freq: Status: Active Protocol: Document 01/23/19 16:56 AW (Rec: 01/24/19 15:52 AW [id number]) Posture Evaluation Position Standing Knee Posture (L) Genu Valgus,(R) Genu Valgus Patellar Posture (L) Neutral,(R) Neutral Ankle/Foot Posture (L) Pronated,(R) Pronated,(L) Calcaneal Eversion,(R) Calcaneal Eversion Foot Arch (L) No Arch,(R) No Arch Sitting Foot Arch (L) No Arch,(R) No Arch Palpation Assessment Location One Palpation Location R knee Palpation Findings Muscle Guarding,Tenderness Palpation Details hamstrings guarding, tenderness at pes anserinus region and posterior knee PT-OP-K Range of Motion Start: 01/24/19 14:55 Freq: Status: Active Protocol: Document 01/23/19 16:56 AW (Rec: 01/24/19 15:52 AW [id number]) Hip Goniometric Range of Motion Hip ROM Limitations Comments Hip flexion: R 105 L110 ER limited bilaterally Knee Goniometric Range of Motion Knee ROM Limitations Knee ROM Limitations Soft Tissue Tightness,Pain Comments Knee flexion: R 120 L 125 Knee extension - lacking 5 degrees bilaterally PT-OP-L Special Tests Start: 01/24/19 14:55 Freq: Status: Active Protocol: Document 01/23/19 16:56 AW (Rec: 01/24/19 15:52 AW [id number]) Special Tests Hip Special Tests Scour Test Test Results negative bilaterally Knee Special Tests Ramon Test Results positive Comments positive bilaterally for rectus femoris tightness; positive bilaterally for ITB/ TFL tightness Narayan's Test Test Results positive left, negative right Comments positive for ITB/TFL tightness left side only Thessaly Test 5 Degrees Test Results negative left; positive right Comments provoked pain in right knee Shadi's Test Results negative bilaterally PT-OP-M Strength Start: 01/24/19 14:55 Freq: Status: Active Protocol: Document 01/23/19 16:56 AW (Rec: 01/24/19 15:52 AW [id number]) Hip Strength Hip Manual Muscle Testing Right Flexion (L2) 4- Good- Extension (S1) 3+ Fair+ Abduction 3+ Fair+ External Rotation 4 Good Internal Rotation 4 Good Comments extension tested in prone Left Flexion (L2) 4- Good- Extension (S1) 3+ Fair+ Abduction 3+ Fair+ External Rotation 4 Good Internal Rotation 4 Good Comments extension tested in prone Knee Strength Knee Manual Muscle Testing Right Flexion (S2) 4- Good- Extension (L3) 4 Good Left Flexion (S2) 4 Good Extension (L3) 4+ Good+ PT-OP-T Assessment and Plan Start: 01/24/19 14:55 Freq: Status: Active Protocol: Document 01/23/19 16:56 AW (Rec: 01/24/19 15:52 AW [id number]) Physical Therapy Assessment Rehab Potential Rehabilitation Potential Good Evaluation Complexity Number of Personal Factors/Comorbidities 1-2 Number of Body Systems Impaired 1-2 Clinical Presentation at Evaluation Stable Impairments Impairments Activity Tolerance,Balance, Functional Activities, Functional Mobility,Gait,Pain, Posture,ROM,Soft Tissue Mobility,Strength,Transfers Other Concerns Barriers to Rehabilitation Lack of follow up with previous plan of care Goals Two Impairment Pt unable to lie flat for restful sleep without increased pain Short Term Goal (STG) Pt will tolerate lying with knee in full extension for 10 minutes without increased pain STG Duration 02/13/19 Longterm Goal (LTG) Pt will tolerate lying with knee in full extension at least one hour without increased pain LTG Duration 03/20/19 One Impairment Pt without HEP Short Term Goal (STG) Pt will be independent with HEP STG Duration 02/13/19 Video Surveillance Technician Goal (LTG) Pt will be independent with maintenance HEP LTG Duration 03/20/19 Assessment Summary Assessment Pt is a 68 yo woman presenting with right medial and posterior knee pain. She is limited in ambulation distance and sleep duration due to pain. Imaging reports indicate medial meniscal tear with partial extrusion, derangement of lateral meniscus and Delgado 's cyst. Bilateral hips and knees are weakened. Valgus stress testing and Thesally maneuver provoke right knee pain which is consistent with imaging findings. Bilateral knee OA and weak hips predispose Sylvia to injury. Reduced activity tolerance may lead to perpetuation or worsening of symptoms. She will benefit from skilled PT to address these impairments, particularly in strength and balance, for improved functional mobility and activity tolerance. Physical Therapy Plan Frequency and Duration Frequency of Treatment 1-2x/week Duration of Treatment 8 weeks Plan of Care Start Date 01/23/19 Plan of Care End Date 03/20/19 Therapeutic Interventions Therapeutic Interventions Balance Training,Gait Training ,Home Exercise Program,Joint Mobilizations,Manual Therapy, Neuromuscular Re-education, Orthotic/Prosthetic Management ,Patient/Caregiver Education, Self-Care/Home Management,Soft Tissue Mobilization,Taping, Therapeutic Activities, Therapeutic Exercises Modalities Cold Pack/Ice Massage Next Visit Focus/Plan Next Note Type Treatment Note Next Visit Plan Collect LEFS from patient and formulate goal based on result 2-minute walk for baseline and goal writing Begin global hip strengthening for improved stability Single leg balance
--- NOTE | 2019-01-24 15:52 | PT.OIE ---
Current Diagnoses Pain in right knee (01/23/19) Visit Care Team Role Provider Type Yolette Keenan PA-C Attending Provider Physician Primary Care Provider Specialty: Internal Medicine Address: [address] [place] [address], [id number] Email: [email or web address] Physical [facility] Initial Evaluation PT-OP-A Visit Information Start: 01/24/19 14:55 Freq: Status: Active Protocol: Document 01/23/19 16:56 AW (Rec: 01/24/19 15:52 AW [id number]) Out-Patient Physical Therapy Visit Information Visit Information Visit Type Initial Evaluation Visit Start Time 15:15 Visit Stop Time 16:00 Total Visit Minutes 45 Visit Number 1 Number of WRAPPER STEMMER HAND Visits 0 Evaluation Information Evaluation Date 01/23/19 PT-OP-B Current Condition Start: 01/24/19 14:55 Freq: Status: Active Protocol: Document 01/23/19 16:56 AW (Rec: 01/24/19 15:52 AW [id number]) Current Condition History of Current Condition Onset Date 01/01/19 Current Complaints R posterior and medial knee pain History of Current Condition Pt presents with painful right knee since early January when she was getting out of her car, caught her right foot , and twisted her knee. Some time after that, she was ascending stairs and accidentally led with her right leg at which point she felt her right knee collapsed and she was in excruciating pain. She had MRI on 01/13/19 ( see below for details). In the mornings, her knee feels stiff. She noted her pain is worst at night after a busy day and is exacerbated further by trying to lie with the knee in full extension. She is limited in her ambulation distance now due to pain which she characterizes as a burning sensation in her posterior and medial knee. She reports pain is waking her from sleep several times per night. Ice has been helpful, but nothing else improves her pain. Prior Treatments and Tests Pt was previously treated at this clinic for L posterior knee pain, discharged without completing plan of care in August 2018. MRI 01/13/19: Medial meniscal tear involving posterior horn with partial extrusion. Truncation of the free margin of the body lateral meniscus. Degenerative joint disease as above. Large Delgado's cyst. Future Testing and Treatments Planned None identified Treatment Goals Patient/Caregiver Goals Pt would like to have an appropriate home exercise program and be able to ambulate with less pain. 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 Current Functional Impairments (Reported) Functional Limitations- Mobility/Gait Limited in ambulation distance and stairs navigation due to pain PT-OP-C Subjective Start: 01/24/19 14:55 Freq: Status: Active Protocol: Document 01/23/19 16:56 AW (Rec: 01/24/19 15:52 AW [id number]) OP-PT Subjective Patient Comments Patient Comments I'd like to be able to get around with less pain PT-OP-D Balance Start: 01/24/19 14:55 Freq: Status: Active Protocol: Document 01/23/19 16:56 AW (Rec: 01/24/19 15:52 AW [id number]) OP-PT Balance Assessment Sitting Balance Static Sitting Balance Ability Good Dynamic Sitting Balance Ability Good Standing Balance Static Standing Balance Ability Fair Dynamic Standing Balance Ability Fair Device Used none Standing Balance Comments single-leg stance impaired bilaterally Balance Tests Single Limb Standing Single Limb- Right 1 second Single Limb- Left 4 seconds Gamboa Fall Scale Copyright Permission PT-OP-F Manual Assessment Start: 01/24/19 14:55 Freq: Status: Active Protocol: Document 01/23/19 16:56 AW (Rec: 01/24/19 15:52 AW [id number]) Manual Assessments Joint Mobility Assessment Joint Mobility Assessment R knee with obvious Delgado's cyst in popliteal space. No restriction in tibiofemoral joint mobility. Other Manual Assessments Other Manual Assessments Point tender at medial knee ( pes anserinus region) and palpable Delgado's cyst in popliteal space PT-OP-G Mobility & Gait Start: 01/24/19 14:55 Freq: Status: Active Protocol: Document 01/23/19 16:56 AW (Rec: 01/24/19 15:52 AW [id number]) OP Gait Assessment Comments Gait Comments Pt ambulates with lateral lean to right side, decreased step length, decreased foot clearance bilaterally. No assistive device PT-OP-H Neuro Start: 01/24/19 14:55 Freq: Status: Active Protocol: Document 01/23/19 16:56 AW (Rec: 01/24/19 15:52 AW [id number]) Sensation Evaluation Gross Sensation Gross Sensation WNL PT-OP-J Posture/Palpation/Skin Start: 01/24/19 14:55 Freq: Status: Active Protocol: Document 01/23/19 16:56 AW (Rec: 01/24/19 15:52 AW [id number]) Posture Evaluation Position Standing Knee Posture (L) Genu Valgus,(R) Genu Valgus Patellar Posture (L) Neutral,(R) Neutral Ankle/Foot Posture (L) Pronated,(R) Pronated,(L) Calcaneal Eversion,(R) Calcaneal Eversion Foot Arch (L) No Arch,(R) No Arch Sitting Foot Arch (L) No Arch,(R) No Arch Palpation Assessment Location One Palpation Location R knee Palpation Findings Muscle Guarding,Tenderness Palpation Details hamstrings guarding, tenderness at pes anserinus region and posterior knee PT-OP-K Range of Motion Start: 01/24/19 14:55 Freq: Status: Active Protocol: Document 01/23/19 16:56 AW (Rec: 01/24/19 15:52 AW [id number]) Hip Goniometric Range of Motion Hip ROM Limitations Comments Hip flexion: R 105 L110 ER limited bilaterally Knee Goniometric Range of Motion Knee ROM Limitations Knee ROM Limitations Soft Tissue Tightness,Pain Comments Knee flexion: R 120 L 125 Knee extension - lacking 5 degrees bilaterally PT-OP-L Special Tests Start: 01/24/19 14:55 Freq: Status: Active Protocol: Document 01/23/19 16:56 AW (Rec: 01/24/19 15:52 AW [id number]) Special Tests Hip Special Tests Scour Test Test Results negative bilaterally Knee Special Tests Ramon Test Results positive Comments positive bilaterally for rectus femoris tightness; positive bilaterally for ITB/ TFL tightness Narayan's Test Test Results positive left, negative right Comments positive for ITB/TFL tightness left side only Thessaly Test 5 Degrees Test Results negative left; positive right Comments provoked pain in right knee Shadi's Test Results negative bilaterally PT-OP-M Strength Start: 01/24/19 14:55 Freq: Status: Active Protocol: Document 01/23/19 16:56 AW (Rec: 01/24/19 15:52 AW [id number]) Hip Strength Hip Manual Muscle Testing Right Flexion (L2) 4- Good- Extension (S1) 3+ Fair+ Abduction 3+ Fair+ External Rotation 4 Good Internal Rotation 4 Good Comments extension tested in prone Left Flexion (L2) 4- Good- Extension (S1) 3+ Fair+ Abduction 3+ Fair+ External Rotation 4 Good Internal Rotation 4 Good Comments extension tested in prone Knee Strength Knee Manual Muscle Testing Right Flexion (S2) 4- Good- Extension (L3) 4 Good Left Flexion (S2) 4 Good Extension (L3) 4+ Good+ PT-OP-T Assessment and Plan Start: 01/24/19 14:55 Freq: Status: Active Protocol: Document 01/23/19 16:56 AW (Rec: 01/24/19 15:52 AW [id number]) Physical Therapy Assessment Rehab Potential Rehabilitation Potential Good Evaluation Complexity Number of Personal Factors/Comorbidities 1-2 Number of Body Systems Impaired 1-2 Clinical Presentation at Evaluation Stable Impairments Impairments Activity Tolerance,Balance, Functional Activities, Functional Mobility,Gait,Pain, Posture,ROM,Soft Tissue Mobility,Strength,Transfers Other Concerns Barriers to Rehabilitation Lack of follow up with previous plan of care Goals Two Impairment Pt unable to lie flat for restful sleep without increased pain Short Term Goal (STG) Pt will tolerate lying with knee in full extension for 10 minutes without increased pain STG Duration 02/13/19 Group Home Goal (LTG) Pt will tolerate lying with knee in full extension at least one hour without increased pain LTG Duration 03/20/19 One Impairment Pt without HEP Short Term Goal (STG) Pt will be independent with HEP STG Duration 02/13/19 Qa Internship Goal (LTG) Pt will be independent with maintenance HEP LTG Duration 03/20/19 Assessment Summary Assessment Pt is a 68 yo woman presenting with right medial and posterior knee pain. She is limited in ambulation distance and sleep duration due to pain. Imaging reports indicate medial meniscal tear with partial extrusion, derangement of lateral meniscus and Delgado 's cyst. Bilateral hips and knees are weakened. Valgus stress testing and Thesally maneuver provoke right knee pain which is consistent with imaging findings. Bilateral knee OA and weak hips predispose Sylvia to injury. Reduced activity tolerance may lead to perpetuation or worsening of symptoms. She will benefit from skilled PT to address these impairments, particularly in strength and balance, for improved functional mobility and activity tolerance. Physical Therapy Plan Frequency and Duration Frequency of Treatment 1-2x/week Duration of Treatment 8 weeks Plan of Care Start Date 01/23/19 Plan of Care End Date 03/20/19 Therapeutic Interventions Therapeutic Interventions Balance Training,Gait Training ,Home Exercise Program,Joint Mobilizations,Manual Therapy, Neuromuscular Re-education, Orthotic/Prosthetic Management ,Patient/Caregiver Education, Self-Care/Home Management,Soft Tissue Mobilization,Taping, Therapeutic Activities, Therapeutic Exercises Modalities Cold Pack/Ice Massage Next Visit Focus/Plan Next Note Type Treatment Note Next Visit Plan Collect LEFS from patient and formulate goal based on result 2-minute walk for baseline and goal writing Begin global hip strengthening for improved stability Single leg balance
--- NOTE | 2019-01-25 17:38 | PT.OTN ---
Current Diagnoses Pain in right knee (01/25/19) Physical Therapy Treatment Note PT-OP-A Visit Information Start: 01/24/19 14:55 Freq: Status: Active Protocol: Document 01/25/19 17:15 AW (Rec: 01/25/19 17:38 AW [email or web address]) Out-Patient Physical Therapy Visit Information Visit Information Visit Type Treatment Note Visit Start Time 15:12 Visit Stop Time 15:57 Total Visit Minutes 45 Visit Number 2 Number of SOCK LINING EXAMINER Visits 0 PT-OP-B Current Condition Start: 01/24/19 14:55 Freq: Status: Active Protocol: Document 01/23/19 16:56 AW (Rec: 01/24/19 15:52 AW [id number]) Current Condition History of Current Condition Onset Date 01/01/19 Current Complaints R posterior and medial knee pain History of Current Condition Pt presents with painful right knee since early January when she was getting out of her car, caught her right foot , and twisted her knee. Some time after that, she was ascending stairs and accidentally led with her right leg at which point she felt her right knee collapsed and she was in excruciating pain. She had MRI on 01/13/19 ( see below for details). In the mornings, her knee feels stiff. She noted her pain is worst at night after a busy day and is exacerbated further by trying to lie with the knee in full extension. She is limited in her ambulation distance now due to pain which she characterizes as a burning sensation in her posterior and medial knee. She reports pain is waking her from sleep several times per night. Ice has been helpful, but nothing else improves her pain. Prior Treatments and Tests Pt was previously treated at this clinic for L posterior knee pain, discharged without completing plan of care in August 2018. MRI 01/13/19: Medial meniscal tear involving posterior horn with partial extrusion. Truncation of the free margin of the body lateral meniscus. Degenerative joint disease as above. Large Delgado's cyst. Future Testing and Treatments Planned None identified Treatment Goals Patient/Caregiver Goals Pt would like to have an appropriate home exercise program and be able to ambulate with less pain. 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 Patient Questionnaires Lower Extremity Functional Scale LEFS Score 33 LEFS Impairment 40 to 59% Impaired (Score 32- 47) PT-OP-D Balance Start: 01/24/19 14:55 Freq: Status: Active Protocol: Document 01/23/19 16:56 AW (Rec: 01/24/19 15:52 AW [id number]) OP-PT Balance Assessment Sitting Balance Static Sitting Balance Ability Good Dynamic Sitting Balance Ability Good Standing Balance Static Standing Balance Ability Fair Dynamic Standing Balance Ability Fair Device Used none Standing Balance Comments single-leg stance impaired bilaterally Balance Tests Single Limb Standing Single Limb- Right 1 second Single Limb- Left 4 seconds Gamboa Fall Scale Copyright Permission PT-OP-F Manual Assessment Start: 01/24/19 14:55 Freq: Status: Active Protocol: Document 01/23/19 16:56 AW (Rec: 01/24/19 15:52 AW [id number]) Manual Assessments Joint Mobility Assessment Joint Mobility Assessment R knee with obvious Delgado's cyst in popliteal space. No restriction in tibiofemoral joint mobility. Other Manual Assessments Other Manual Assessments Point tender at medial knee ( pes anserinus region) and palpable Delgado's cyst in popliteal space PT-OP-G Mobility & Gait Start: 01/24/19 14:55 Freq: Status: Active Protocol: Document 01/23/19 16:56 AW (Rec: 01/24/19 15:52 AW [id number]) OP Gait Assessment Comments Gait Comments Pt ambulates with lateral lean to right side, decreased step length, decreased foot clearance bilaterally. No assistive device PT-OP-H Neuro Start: 01/24/19 14:55 Freq: Status: Active Protocol: Document 01/23/19 16:56 AW (Rec: 01/24/19 15:52 AW [id number]) Sensation Evaluation Gross Sensation Gross Sensation WNL PT-OP-J Posture/Palpation/Skin Start: 01/24/19 14:55 Freq: Status: Active Protocol: Document 01/23/19 16:56 AW (Rec: 01/24/19 15:52 AW [id number]) Posture Evaluation Position Standing Knee Posture (L) Genu Valgus,(R) Genu Valgus Patellar Posture (L) Neutral,(R) Neutral Ankle/Foot Posture (L) Pronated,(R) Pronated,(L) Calcaneal Eversion,(R) Calcaneal Eversion Foot Arch (L) No Arch,(R) No Arch Sitting Foot Arch (L) No Arch,(R) No Arch Palpation Assessment Location One Palpation Location R knee Palpation Findings Muscle Guarding,Tenderness Palpation Details hamstrings guarding, tenderness at pes anserinus region and posterior knee PT-OP-K Range of Motion Start: 01/24/19 14:55 Freq: Status: Active Protocol: Document 01/23/19 16:56 AW (Rec: 01/24/19 15:52 AW [id number]) Hip Goniometric Range of Motion Hip ROM Limitations Comments Hip flexion: R 105 L110 ER limited bilaterally Knee Goniometric Range of Motion Knee ROM Limitations Knee ROM Limitations Soft Tissue Tightness,Pain Comments Knee flexion: R 120 L 125 Knee extension - lacking 5 degrees bilaterally PT-OP-L Special Tests Start: 01/24/19 14:55 Freq: Status: Active Protocol: Document 01/23/19 16:56 AW (Rec: 01/24/19 15:52 AW [id number]) Special Tests Hip Special Tests Scour Test Test Results negative bilaterally Knee Special Tests Ramon Test Results positive Comments positive bilaterally for rectus femoris tightness; positive bilaterally for ITB/ TFL tightness Narayan's Test Test Results positive left, negative right Comments positive for ITB/TFL tightness left side only Thessaly Test 5 Degrees Test Results negative left; positive right Comments provoked pain in right knee Shadi's Test Results negative bilaterally PT-OP-M Strength Start: 01/24/19 14:55 Freq: Status: Active Protocol: Document 01/23/19 16:56 AW (Rec: 01/24/19 15:52 AW [id number]) Hip Strength Hip Manual Muscle Testing Right Flexion (L2) 4- Good- Extension (S1) 3+ Fair+ Abduction 3+ Fair+ External Rotation 4 Good Internal Rotation 4 Good Comments extension tested in prone Left Flexion (L2) 4- Good- Extension (S1) 3+ Fair+ Abduction 3+ Fair+ External Rotation 4 Good Internal Rotation 4 Good Comments extension tested in prone Knee Strength Knee Manual Muscle Testing Right Flexion (S2) 4- Good- Extension (L3) 4 Good Left Flexion (S2) 4 Good Extension (L3) 4+ Good+ PT-OP-Q Treatments Start: 01/24/19 14:55 Freq: Status: Active Protocol: Document 01/25/19 17:15 AW (Rec: 01/25/19 17:38 AW [email or web address]) Cardio Equipment Recumbent Stepper (Sci-Fit) Duration (Minutes) 6 Resistance 1 Seat Position 8 Gym Equipment Shuttle Recovery Bilateral Squats Details bilateral squats Resistance 37.5, 50, 62.5 Shuttle Recovery Platform Stable Reps/Time 37.5 x 20, 50 x 15, 62.5 x 12 Therapeutic Exercises Supine Exercises 2 Supine Exercise Name hip flexor march Side bilateral Reps/Minutes 10 reps bilat Comments with leg hanging over edge of mat, pt marches leg up to mat 1 Supine Exercise Name hip flexor stretch Side bilateral Resistance manual Reps/Minutes 2 minutes Comments ramon test position Sitting Exercises 1 Sitting Exercise Name sit to stand Side bilateral Reps/Minutes 2x10 reps Comments from 21 mat, no UE support Standing Exercises 2 Standing Exercise Name JAKUB stretch Side bilateral Reps/Minutes 2 minutes gastroc, 2 minutes soleus Comments cues to keep hips forward 1 Standing Exercise Name TKE Side right Resistance level 1 band Reps/Minutes 2x15 reps Self-Care/Home Management Treatment Education Patient Education Home Exercise Program Other Education 1 - TKE with level 1 band 2 - gastroc/soleus stretch PT-OP-T Assessment and Plan Start: 01/24/19 14:55 Freq: Status: Active Protocol: Document 01/25/19 17:15 AW (Rec: 01/25/19 17:38 AW [email or web address]) Physical Therapy Assessment Impairments Impairments Activity Tolerance,Balance, Functional Activities, Functional Mobility,Gait,Pain, Posture,ROM,Soft Tissue Mobility,Strength,Transfers Goals Four Impairment 2-minute walk - 315.6 feet. Norm for older adults is 493 feet. Short Term Goal (STG) Pt will walk 375 feet on 2MW for increased activity tolerance STG Duration 02/13/19 Senior Living Goal (LTG) Pt will walk 425 feet on 2MW for increased activity tolerance LTG Duration 03/20/19 Three Impairment Pt scores 33/80 on LEFS Short Term Goal (STG) Pt will score 42/80 or better for improved daily function STG Duration 02/13/19 Senior Living Goal (LTG) Pt will score 48/80 or better for improved daily function LTG Duration 03/20/19 Two Impairment Pt unable to lie flat for restful sleep without increased pain Short Term Goal (STG) Pt will tolerate lying with knee in full extension for 10 minutes without increased pain STG Duration 02/13/19 Balancing Machine Set Up Worker Goal (LTG) Pt will tolerate lying with knee in full extension at least one hour without increased pain LTG Duration 03/20/19 One Impairment Pt without HEP Short Term Goal (STG) Pt will be independent with HEP STG Duration 02/13/19 Balancing Machine Set Up Worker Goal (LTG) Pt will be independent with maintenance HEP LTG Duration 03/20/19 Assessment Summary Assessment Sylvia tolerated ther ex well today. Focused on establishing baseline exercise tolerance and simple HEP. Also conducted 2-Minute Walk Test with result of 315.6 feet - well below norm for older adults of 493 feet (Juanito and Ramon, 2009). Physical Therapy Plan Frequency and Duration Frequency of Treatment 1-2x/week Duration of Treatment 8 weeks Plan of Care Start Date 01/23/19 Plan of Care End Date 03/20/19 Therapeutic Interventions Therapeutic Interventions Balance Training,Gait Training ,Home Exercise Program,Joint Mobilizations,Manual Therapy, Neuromuscular Re-education, Orthotic/Prosthetic Management ,Patient/Caregiver Education, Self-Care/Home Management,Soft Tissue Mobilization,Taping, Therapeutic Activities, Therapeutic Exercises Modalities Cold Pack/Ice Massage Next Visit Focus/Plan Next Note Type Treatment Note Next Visit Plan Continue with [facility] knee strengthening, single leg balance, global hip strengthening.
--- NOTE | 2019-01-30 17:18 | PT.OTN ---
Current Diagnoses Pain in right knee (01/30/19) Physical Therapy Treatment Note PT-OP-A Visit Information Start: 01/24/19 14:55 Freq: Status: Active Protocol: Document 01/30/19 17:08 AW (Rec: 01/30/19 17:18 AW [email or web address]) Out-Patient Physical Therapy Visit Information Visit Information Visit Type Treatment Note Visit Start Time 15:14 Visit Stop Time 15:54 Total Visit Minutes 40 Visit Number 3 Number of ENERGY CONSERVATION SPECIALIST Visits 0 PT-OP-B Current Condition Start: 01/24/19 14:55 Freq: Status: Active Protocol: Document 01/23/19 16:56 AW (Rec: 01/24/19 15:52 AW [id number]) Current Condition History of Current Condition Onset Date 01/01/19 Current Complaints R posterior and medial knee pain History of Current Condition Pt presents with painful right knee since early January when she was getting out of her car, caught her right foot , and twisted her knee. Some time after that, she was ascending stairs and accidentally led with her right leg at which point she felt her right knee collapsed and she was in excruciating pain. She had MRI on 01/13/19 ( see below for details). In the mornings, her knee feels stiff. She noted her pain is worst at night after a busy day and is exacerbated further by trying to lie with the knee in full extension. She is limited in her ambulation distance now due to pain which she characterizes as a burning sensation in her posterior and medial knee. She reports pain is waking her from sleep several times per night. Ice has been helpful, but nothing else improves her pain. Prior Treatments and Tests Pt was previously treated at this clinic for L posterior knee pain, discharged without completing plan of care in August 2018. MRI 01/13/19: Medial meniscal tear involving posterior horn with partial extrusion. Truncation of the free margin of the body lateral meniscus. Degenerative joint disease as above. Large Delgado's cyst. Future Testing and Treatments Planned None identified Treatment Goals Patient/Caregiver Goals Pt would like to have an appropriate home exercise program and be able to ambulate with less pain. 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 PT-OP-D Balance Start: 01/24/19 14:55 Freq: Status: Active Protocol: Document 01/23/19 16:56 AW (Rec: 01/24/19 15:52 AW [id number]) OP-PT Balance Assessment Sitting Balance Static Sitting Balance Ability Good Dynamic Sitting Balance Ability Good Standing Balance Static Standing Balance Ability Fair Dynamic Standing Balance Ability Fair Device Used none Standing Balance Comments single-leg stance impaired bilaterally Balance Tests Single Limb Standing Single Limb- Right 1 second Single Limb- Left 4 seconds Gamboa Fall Scale Copyright Permission PT-OP-F Manual Assessment Start: 01/24/19 14:55 Freq: Status: Active Protocol: Document 01/23/19 16:56 AW (Rec: 01/24/19 15:52 AW [id number]) Manual Assessments Joint Mobility Assessment Joint Mobility Assessment R knee with obvious Delgado's cyst in popliteal space. No restriction in tibiofemoral joint mobility. Other Manual Assessments Other Manual Assessments Point tender at medial knee ( pes anserinus region) and palpable Delgado's cyst in popliteal space PT-OP-G Mobility & Gait Start: 01/24/19 14:55 Freq: Status: Active Protocol: Document 01/23/19 16:56 AW (Rec: 01/24/19 15:52 AW [id number]) OP Gait Assessment Comments Gait Comments Pt ambulates with lateral lean to right side, decreased step length, decreased foot clearance bilaterally. No assistive device PT-OP-H Neuro Start: 01/24/19 14:55 Freq: Status: Active Protocol: Document 01/23/19 16:56 AW (Rec: 01/24/19 15:52 AW [id number]) Sensation Evaluation Gross Sensation Gross Sensation WNL PT-OP-J Posture/Palpation/Skin Start: 01/24/19 14:55 Freq: Status: Active Protocol: Document 01/23/19 16:56 AW (Rec: 01/24/19 15:52 AW [id number]) Posture Evaluation Position Standing Knee Posture (L) Genu Valgus,(R) Genu Valgus Patellar Posture (L) Neutral,(R) Neutral Ankle/Foot Posture (L) Pronated,(R) Pronated,(L) Calcaneal Eversion,(R) Calcaneal Eversion Foot Arch (L) No Arch,(R) No Arch Sitting Foot Arch (L) No Arch,(R) No Arch Palpation Assessment Location One Palpation Location R knee Palpation Findings Muscle Guarding,Tenderness Palpation Details hamstrings guarding, tenderness at pes anserinus region and posterior knee PT-OP-K Range of Motion Start: 01/24/19 14:55 Freq: Status: Active Protocol: Document 01/23/19 16:56 AW (Rec: 01/24/19 15:52 AW [id number]) Hip Goniometric Range of Motion Hip ROM Limitations Comments Hip flexion: R 105 L110 ER limited bilaterally Knee Goniometric Range of Motion Knee ROM Limitations Knee ROM Limitations Soft Tissue Tightness,Pain Comments Knee flexion: R 120 L 125 Knee extension - lacking 5 degrees bilaterally PT-OP-L Special Tests Start: 01/24/19 14:55 Freq: Status: Active Protocol: Document 01/23/19 16:56 AW (Rec: 01/24/19 15:52 AW [id number]) Special Tests Hip Special Tests Scour Test Test Results negative bilaterally Knee Special Tests Ramon Test Results positive Comments positive bilaterally for rectus femoris tightness; positive bilaterally for ITB/ TFL tightness Narayan's Test Test Results positive left, negative right Comments positive for ITB/TFL tightness left side only Thessaly Test 5 Degrees Test Results negative left; positive right Comments provoked pain in right knee Shadi's Test Results negative bilaterally PT-OP-M Strength Start: 01/24/19 14:55 Freq: Status: Active Protocol: Document 01/23/19 16:56 AW (Rec: 01/24/19 15:52 AW [id number]) Hip Strength Hip Manual Muscle Testing Right Flexion (L2) 4- Good- Extension (S1) 3+ Fair+ Abduction 3+ Fair+ External Rotation 4 Good Internal Rotation 4 Good Comments extension tested in prone Left Flexion (L2) 4- Good- Extension (S1) 3+ Fair+ Abduction 3+ Fair+ External Rotation 4 Good Internal Rotation 4 Good Comments extension tested in prone Knee Strength Knee Manual Muscle Testing Right Flexion (S2) 4- Good- Extension (L3) 4 Good Left Flexion (S2) 4 Good Extension (L3) 4+ Good+ PT-OP-Q Treatments Start: 01/24/19 14:55 Freq: Status: Active Protocol: Document 01/30/19 17:08 AW (Rec: 01/30/19 17:18 AW [email or web address]) Cardio Equipment Recumbent Bicycle Duration (Minutes) 6 Resistance 2 Seat Position 5 Gym Equipment Shuttle Recovery Other- 1 Details bilateral squats Resistance 62.5 Shuttle Recovery Platform Unstable Reps/Time 2x12 reps Bilateral Squats Details bilateral squats Resistance 75 Shuttle Recovery Platform Stable Reps/Time 2x12 reps Therapeutic Exercises Standing Exercises 4 Standing Exercise Name resisted side-stepping Side bilateral Equipment Used yellow loop Reps/Minutes 10 feet x 3 laps Comments ADDED to HEP 3 Standing Exercise Name step ups Side right Equipment Used 4 step Reps/Minutes 2x15 reps 2 Standing Exercise Name JAKUB stretch Side bilateral Reps/Minutes 2 minutes gastroc, 2 minutes soleus Comments cues to keep hips forward 1 Standing Exercise Name TKE Side right Resistance level 3 band Reps/Minutes 2x15 reps Manual Therapy Treatment Soft Tissue Mobilization 1 Body Location R lateral hamstring/lateral gastroc Mobilization Type Cross-Friction,Myofascial Release,Sustained Pressure Intensity/Depth Moderate Body Position Prone Comments Delgado's cyst sits laterally in popliteal space. STM to decrease tension across cyst. Self-Care/Home Management Treatment Education Patient Education Home Exercise Program Other Education 1 - TKE with level 1 band 2 - gastroc/soleus stretch 3 - resisted side-stepping with level 2 band PT-OP-T Assessment and Plan Start: 01/24/19 14:55 Freq: Status: Active Protocol: Document 01/30/19 17:08 AW (Rec: 01/30/19 17:18 AW [email or web address]) Physical Therapy Assessment Impairments Impairments Activity Tolerance,Balance, Functional Activities, Functional Mobility,Gait,Pain, Posture,ROM,Soft Tissue Mobility,Strength,Transfers Goals Four Impairment 2-minute walk - 315.6 feet. Norm for older adults is 493 feet. Short Term Goal (STG) Pt will walk 375 feet on 2MW for increased activity tolerance STG Duration 02/13/19 Usp Goal (LTG) Pt will walk 425 feet on 2MW for increased activity tolerance LTG Duration 03/20/19 Three Impairment Pt scores 33/80 on LEFS Short Term Goal (STG) Pt will score 42/80 or better for improved daily function STG Duration 02/13/19 Usp Goal (LTG) Pt will score 48/80 or better for improved daily function LTG Duration 03/20/19 Two Impairment Pt unable to lie flat for restful sleep without increased pain Short Term Goal (STG) Pt will tolerate lying with knee in full extension for 10 minutes without increased pain STG Duration 02/13/19 Usp Goal (LTG) Pt will tolerate lying with knee in full extension at least one hour without increased pain LTG Duration 03/20/19 One Impairment Pt without HEP Short Term Goal (STG) Pt will be independent with HEP STG Duration 02/13/19 Usp Goal (LTG) Pt will be independent with maintenance HEP LTG Duration 03/20/19 Progress Towards Goals Progress Towards Goals Slow Progress - Other Assessment Summary Assessment Sylvia tolerated manual therapy and ther ex well. She reports medial knee discomfort (but not pain) with bilateral squats on shuttle recovery. Will assess further at next visit. Physical Therapy Plan Frequency and Duration Frequency of Treatment 1-2x/week Duration of Treatment 8 weeks Plan of Care Start Date 01/23/19 Plan of Care End Date 03/20/19 Therapeutic Interventions Therapeutic Interventions Balance Training,Gait Training ,Home Exercise Program,Joint Mobilizations,Manual Therapy, Neuromuscular Re-education, Orthotic/Prosthetic Management ,Patient/Caregiver Education, Self-Care/Home Management,Soft Tissue Mobilization,Taping, Therapeutic Activities, Therapeutic Exercises Modalities Cold Pack/Ice Massage Next Visit Focus/Plan Next Note Type Treatment Note Next Visit Plan Continue with [facility] knee strengthening, single leg balance, global hip strengthening.
--- NOTE | 2019-02-01 17:21 | PT.OTN ---
Current Diagnoses Pain in right knee (02/01/19) Physical Therapy Treatment Note PT-OP-A Visit Information Start: 01/24/19 14:55 Freq: Status: Active Protocol: Document 02/01/19 17:11 AW (Rec: 02/01/19 17:21 AW [email or web address]) Out-Patient Physical Therapy Visit Information Visit Information Visit Type Treatment Note Visit Start Time 15:15 Visit Stop Time 15:57 Total Visit Minutes 42 Visit Number 4 Number of LADLE WATCHER Visits 0 PT-OP-B Current Condition Start: 01/24/19 14:55 Freq: Status: Active Protocol: Document 01/23/19 16:56 AW (Rec: 01/24/19 15:52 AW [id number]) Current Condition History of Current Condition Onset Date 01/01/19 Current Complaints R posterior and medial knee pain History of Current Condition Pt presents with painful right knee since early January when she was getting out of her car, caught her right foot , and twisted her knee. Some time after that, she was ascending stairs and accidentally led with her right leg at which point she felt her right knee collapsed and she was in excruciating pain. She had MRI on 01/13/19 ( see below for details). In the mornings, her knee feels stiff. She noted her pain is worst at night after a busy day and is exacerbated further by trying to lie with the knee in full extension. She is limited in her ambulation distance now due to pain which she characterizes as a burning sensation in her posterior and medial knee. She reports pain is waking her from sleep several times per night. Ice has been helpful, but nothing else improves her pain. Prior Treatments and Tests Pt was previously treated at this clinic for L posterior knee pain, discharged without completing plan of care in August 2018. MRI 01/13/19: Medial meniscal tear involving posterior horn with partial extrusion. Truncation of the free margin of the body lateral meniscus. Degenerative joint disease as above. Large Delgado's cyst. Future Testing and Treatments Planned None identified Treatment Goals Patient/Caregiver Goals Pt would like to have an appropriate home exercise program and be able to ambulate with less pain. 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 PT-OP-D Balance Start: 01/24/19 14:55 Freq: Status: Active Protocol: Document 01/23/19 16:56 AW (Rec: 01/24/19 15:52 AW [id number]) OP-PT Balance Assessment Sitting Balance Static Sitting Balance Ability Good Dynamic Sitting Balance Ability Good Standing Balance Static Standing Balance Ability Fair Dynamic Standing Balance Ability Fair Device Used none Standing Balance Comments single-leg stance impaired bilaterally Balance Tests Single Limb Standing Single Limb- Right 1 second Single Limb- Left 4 seconds Gamboa Fall Scale Copyright Permission PT-OP-F Manual Assessment Start: 01/24/19 14:55 Freq: Status: Active Protocol: Document 01/23/19 16:56 AW (Rec: 01/24/19 15:52 AW [id number]) Manual Assessments Joint Mobility Assessment Joint Mobility Assessment R knee with obvious Delgado's cyst in popliteal space. No restriction in tibiofemoral joint mobility. Other Manual Assessments Other Manual Assessments Point tender at medial knee ( pes anserinus region) and palpable Delgado's cyst in popliteal space PT-OP-G Mobility & Gait Start: 01/24/19 14:55 Freq: Status: Active Protocol: Document 01/23/19 16:56 AW (Rec: 01/24/19 15:52 AW [id number]) OP Gait Assessment Comments Gait Comments Pt ambulates with lateral lean to right side, decreased step length, decreased foot clearance bilaterally. No assistive device PT-OP-H Neuro Start: 01/24/19 14:55 Freq: Status: Active Protocol: Document 01/23/19 16:56 AW (Rec: 01/24/19 15:52 AW [id number]) Sensation Evaluation Gross Sensation Gross Sensation WNL PT-OP-J Posture/Palpation/Skin Start: 01/24/19 14:55 Freq: Status: Active Protocol: Document 01/23/19 16:56 AW (Rec: 01/24/19 15:52 AW [id number]) Posture Evaluation Position Standing Knee Posture (L) Genu Valgus,(R) Genu Valgus Patellar Posture (L) Neutral,(R) Neutral Ankle/Foot Posture (L) Pronated,(R) Pronated,(L) Calcaneal Eversion,(R) Calcaneal Eversion Foot Arch (L) No Arch,(R) No Arch Sitting Foot Arch (L) No Arch,(R) No Arch Palpation Assessment Location One Palpation Location R knee Palpation Findings Muscle Guarding,Tenderness Palpation Details hamstrings guarding, tenderness at pes anserinus region and posterior knee PT-OP-K Range of Motion Start: 01/24/19 14:55 Freq: Status: Active Protocol: Document 01/23/19 16:56 AW (Rec: 01/24/19 15:52 AW [id number]) Hip Goniometric Range of Motion Hip ROM Limitations Comments Hip flexion: R 105 L110 ER limited bilaterally Knee Goniometric Range of Motion Knee ROM Limitations Knee ROM Limitations Soft Tissue Tightness,Pain Comments Knee flexion: R 120 L 125 Knee extension - lacking 5 degrees bilaterally PT-OP-L Special Tests Start: 01/24/19 14:55 Freq: Status: Active Protocol: Document 01/23/19 16:56 AW (Rec: 01/24/19 15:52 AW [id number]) Special Tests Hip Special Tests Scour Test Test Results negative bilaterally Knee Special Tests Ramon Test Results positive Comments positive bilaterally for rectus femoris tightness; positive bilaterally for ITB/ TFL tightness Narayan's Test Test Results positive left, negative right Comments positive for ITB/TFL tightness left side only Thessaly Test 5 Degrees Test Results negative left; positive right Comments provoked pain in right knee Shadi's Test Results negative bilaterally PT-OP-M Strength Start: 01/24/19 14:55 Freq: Status: Active Protocol: Document 01/23/19 16:56 AW (Rec: 01/24/19 15:52 AW [id number]) Hip Strength Hip Manual Muscle Testing Right Flexion (L2) 4- Good- Extension (S1) 3+ Fair+ Abduction 3+ Fair+ External Rotation 4 Good Internal Rotation 4 Good Comments extension tested in prone Left Flexion (L2) 4- Good- Extension (S1) 3+ Fair+ Abduction 3+ Fair+ External Rotation 4 Good Internal Rotation 4 Good Comments extension tested in prone Knee Strength Knee Manual Muscle Testing Right Flexion (S2) 4- Good- Extension (L3) 4 Good Left Flexion (S2) 4 Good Extension (L3) 4+ Good+ PT-OP-Q Treatments Start: 01/24/19 14:55 Freq: Status: Active Protocol: Document 02/01/19 17:11 AW (Rec: 02/01/19 17:21 AW [email or web address]) Cardio Equipment Recumbent Bicycle Duration (Minutes) 6 Resistance 2 Seat Position 5 Gym Equipment Shuttle Recovery Other- 1 Details bilateral squats Resistance 62.5 Shuttle Recovery Platform Unstable Reps/Time 2x12 reps Therapeutic Exercises Supine Exercises 4 Supine Exercise Name hamstring stretch Side right Resistance manual Reps/Minutes 2 minutes Comments contract/relax 2 Supine Exercise Name hip flexor march Side bilateral Reps/Minutes 10 reps bilat Comments with leg hanging over edge of mat, pt marches leg up to mat 1 Supine Exercise Name hip flexor stretch Side bilateral Resistance manual Reps/Minutes 2 minutes Comments ramon test position Standing Exercises 5 Standing Exercise Name heel raises Side bilateral Equipment Used 4 step Reps/Minutes 2x15 reps 3 Standing Exercise Name lateral step-ups Side right Equipment Used 4 step Reps/Minutes 2x12 reps 2 Standing Exercise Name JAKUB stretch Side bilateral Reps/Minutes 2 minutes gastroc, 2 minutes soleus Comments cues to keep hips forward Manual Therapy Treatment Soft Tissue Mobilization 1 Body Location R lateral hamstring/lateral gastroc Mobilization Type Cross-Friction,Myofascial Release,Sustained Pressure Intensity/Depth Moderate Body Position Prone Comments STM to decrease tension across cyst. Self-Care/Home Management Treatment Education Patient Education Home Exercise Program Other Education 1 - TKE with level 1 band 2 - gastroc/soleus stretch 3 - resisted side-stepping with level 2 band 4 - seated hamstring stretch 5 - step-ups PT-OP-T Assessment and Plan Start: 01/24/19 14:55 Freq: Status: Active Protocol: Document 02/01/19 17:11 AW (Rec: 02/01/19 17:21 AW [email or web address]) Physical Therapy Assessment Impairments Impairments Activity Tolerance,Balance, Functional Activities, Functional Mobility,Gait,Pain, Posture,ROM,Soft Tissue Mobility,Strength,Transfers Goals Four Impairment 2-minute walk - 315.6 feet. Norm for older adults is 493 feet. Short Term Goal (STG) Pt will walk 375 feet on 2MW for increased activity tolerance STG Duration 02/13/19 Nursing Home Goal (LTG) Pt will walk 425 feet on 2MW for increased activity tolerance LTG Duration 03/20/19 Three Impairment Pt scores 33/80 on LEFS Short Term Goal (STG) Pt will score 42/80 or better for improved daily function STG Duration 02/13/19 Dancer Or Choreographer Goal (LTG) Pt will score 48/80 or better for improved daily function LTG Duration 03/20/19 Two Impairment Pt unable to lie flat for restful sleep without increased pain Short Term Goal (STG) Pt will tolerate lying with knee in full extension for 10 minutes without increased pain STG Duration 02/13/19 Nursing Home Goal (LTG) Pt will tolerate lying with knee in full extension at least one hour without increased pain LTG Duration 03/20/19 One Impairment Pt without HEP Short Term Goal (STG) Pt will be independent with HEP STG Duration 02/13/19 Nursing Home Goal (LTG) Pt will be independent with maintenance HEP LTG Duration 03/20/19 Progress Towards Goals Progress Towards Goals Slow Progress due to Activity Tolerance Assessment Summary Assessment Pt reports increased tension in front of bilateral knees. Pressed further, pt acknowledged she was sore, but not in pain. Increased tension is expected with closed chain strengthening of the knee extensors, but will continue to monitor. Pt shows good effort with ther ex. Physical Therapy Plan Frequency and Duration Frequency of Treatment 1-2x/week Duration of Treatment 8 weeks Plan of Care Start Date 01/23/19 Plan of Care End Date 03/20/19 Therapeutic Interventions Therapeutic Interventions Balance Training,Gait Training ,Home Exercise Program,Joint Mobilizations,Manual Therapy, Neuromuscular Re-education, Orthotic/Prosthetic Management ,Patient/Caregiver Education, Self-Care/Home Management,Soft Tissue Mobilization,Taping, Therapeutic Activities, Therapeutic Exercises Modalities Cold Pack/Ice Massage Next Visit Focus/Plan Next Note Type Treatment Note Next Visit Plan Continue with C knee strengthening, single leg balance, global hip strengthening. Add quad stretches to home program.
--- NOTE | 2019-02-08 16:10 | PT.OTN ---
Current Diagnoses Pain in right knee (02/08/19) Physical Therapy Treatment Note PT-OP-A Visit Information Start: 01/24/19 14:55 Freq: Status: Active Protocol: Document 02/08/19 12:18 SP (Rec: 02/08/19 16:10 SP [email or web address]) Out-Patient Physical Therapy Visit Information Visit Information Visit Type Treatment Note Visit Start Time 12:18 Visit Stop Time 12:56 Total Visit Minutes 38 Visit Number 5 Number of SIZE MAKER Visits 1 PT-OP-B Current Condition Start: 01/24/19 14:55 Freq: Status: Active Protocol: Document 01/23/19 16:56 AW (Rec: 01/24/19 15:52 AW [id number]) Current Condition History of Current Condition Onset Date 01/01/19 Current Complaints R posterior and medial knee pain History of Current Condition Pt presents with painful right knee since early January when she was getting out of her car, caught her right foot , and twisted her knee. Some time after that, she was ascending stairs and accidentally led with her right leg at which point she felt her right knee collapsed and she was in excruciating pain. She had MRI on 01/13/19 ( see below for details). In the mornings, her knee feels stiff. She noted her pain is worst at night after a busy day and is exacerbated further by trying to lie with the knee in full extension. She is limited in her ambulation distance now due to pain which she characterizes as a burning sensation in her posterior and medial knee. She reports pain is waking her from sleep several times per night. Ice has been helpful, but nothing else improves her pain. Prior Treatments and Tests Pt was previously treated at this clinic for L posterior knee pain, discharged without completing plan of care in August 2018. MRI 01/13/19: Medial meniscal tear involving posterior horn with partial extrusion. Truncation of the free margin of the body lateral meniscus. Degenerative joint disease as above. Large Delgado's cyst. Future Testing and Treatments Planned None identified Treatment Goals Patient/Caregiver Goals Pt would like to have an appropriate home exercise program and be able to ambulate with less pain. 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 I feel the exercises are helping. PT-OP-D Balance Start: 01/24/19 14:55 Freq: Status: Active Protocol: Document 01/23/19 16:56 AW (Rec: 01/24/19 15:52 AW [id number]) OP-PT Balance Assessment Sitting Balance Static Sitting Balance Ability Good Dynamic Sitting Balance Ability Good Standing Balance Static Standing Balance Ability Fair Dynamic Standing Balance Ability Fair Device Used none Standing Balance Comments single-leg stance impaired bilaterally Balance Tests Single Limb Standing Single Limb- Right 1 second Single Limb- Left 4 seconds Gamboa Fall Scale Copyright Permission PT-OP-F Manual Assessment Start: 01/24/19 14:55 Freq: Status: Active Protocol: Document 01/23/19 16:56 AW (Rec: 01/24/19 15:52 AW [id number]) Manual Assessments Joint Mobility Assessment Joint Mobility Assessment R knee with obvious Delgado's cyst in popliteal space. No restriction in tibiofemoral joint mobility. Other Manual Assessments Other Manual Assessments Point tender at medial knee ( pes anserinus region) and palpable Delgado's cyst in popliteal space PT-OP-G Mobility & Gait Start: 01/24/19 14:55 Freq: Status: Active Protocol: Document 01/23/19 16:56 AW (Rec: 01/24/19 15:52 AW [id number]) OP Gait Assessment Comments Gait Comments Pt ambulates with lateral lean to right side, decreased step length, decreased foot clearance bilaterally. No assistive device PT-OP-H Neuro Start: 01/24/19 14:55 Freq: Status: Active Protocol: Document 01/23/19 16:56 AW (Rec: 01/24/19 15:52 AW [id number]) Sensation Evaluation Gross Sensation Gross Sensation WNL PT-OP-J Posture/Palpation/Skin Start: 01/24/19 14:55 Freq: Status: Active Protocol: Document 01/23/19 16:56 AW (Rec: 01/24/19 15:52 AW [id number]) Posture Evaluation Position Standing Knee Posture (L) Genu Valgus,(R) Genu Valgus Patellar Posture (L) Neutral,(R) Neutral Ankle/Foot Posture (L) Pronated,(R) Pronated,(L) Calcaneal Eversion,(R) Calcaneal Eversion Foot Arch (L) No Arch,(R) No Arch Sitting Foot Arch (L) No Arch,(R) No Arch Palpation Assessment Location One Palpation Location R knee Palpation Findings Muscle Guarding,Tenderness Palpation Details hamstrings guarding, tenderness at pes anserinus region and posterior knee PT-OP-K Range of Motion Start: 01/24/19 14:55 Freq: Status: Active Protocol: Document 01/23/19 16:56 AW (Rec: 01/24/19 15:52 AW [id number]) Hip Goniometric Range of Motion Hip ROM Limitations Comments Hip flexion: R 105 L110 ER limited bilaterally Knee Goniometric Range of Motion Knee ROM Limitations Knee ROM Limitations Soft Tissue Tightness,Pain Comments Knee flexion: R 120 L 125 Knee extension - lacking 5 degrees bilaterally PT-OP-L Special Tests Start: 01/24/19 14:55 Freq: Status: Active Protocol: Document 01/23/19 16:56 AW (Rec: 01/24/19 15:52 AW [id number]) Special Tests Hip Special Tests Scour Test Test Results negative bilaterally Knee Special Tests Ramon Test Results positive Comments positive bilaterally for rectus femoris tightness; positive bilaterally for ITB/ TFL tightness Narayan's Test Test Results positive left, negative right Comments positive for ITB/TFL tightness left side only Thessaly Test 5 Degrees Test Results negative left; positive right Comments provoked pain in right knee Shadi's Test Results negative bilaterally PT-OP-M Strength Start: 01/24/19 14:55 Freq: Status: Active Protocol: Document 01/23/19 16:56 AW (Rec: 01/24/19 15:52 AW [id number]) Hip Strength Hip Manual Muscle Testing Right Flexion (L2) 4- Good- Extension (S1) 3+ Fair+ Abduction 3+ Fair+ External Rotation 4 Good Internal Rotation 4 Good Comments extension tested in prone Left Flexion (L2) 4- Good- Extension (S1) 3+ Fair+ Abduction 3+ Fair+ External Rotation 4 Good Internal Rotation 4 Good Comments extension tested in prone Knee Strength Knee Manual Muscle Testing Right Flexion (S2) 4- Good- Extension (L3) 4 Good Left Flexion (S2) 4 Good Extension (L3) 4+ Good+ PT-OP-Q Treatments Start: 01/24/19 14:55 Freq: Status: Active Protocol: Document 02/08/19 12:18 SP (Rec: 02/08/19 16:10 SP [email or web address]) Therapeutic Exercises Standing Exercises 6 Standing Exercise Name Eccentric step down Side bilateral Resistance body wt Equipment Used 4 step Reps/Minutes 2x10 Comments not allowing knees over toes, heel press with glut activation 3 Standing Exercise Name Lateral step up and overs Side bilateral Equipment Used 4 step Reps/Minutes 2x10 rep 2 Standing Exercise Name JAKUB stretch Side bilateral Reps/Minutes 2 minutes gastroc, 2 minutes soleus Comments cues to keep hips forward 1 Standing Exercise Name TKE Side right Resistance level 3 band Reps/Minutes 2x15 reps Other Exercises Self STMs Other Exercise Name Instruction on self rolling STMs Side bilateral Equipment Used rolling stick Comments quad, HS, calves PT-OP-T Assessment and Plan Start: 01/24/19 14:55 Freq: Status: Active Protocol: Document 02/08/19 12:18 SP (Rec: 02/08/19 16:10 SP [email or web address]) Physical Therapy Assessment Assessment Summary Assessment Pt reported increased tension behind R posterolateral knee but went away post rolling. Pt improved with knee alignment during step downs post verbal and tactile to anterior knee cuing for knee behind toes and toward mid foot. 0/10 end of tx. Physical Therapy Plan Frequency and Duration Frequency of Treatment 1-2x/week Duration of Treatment 8 weeks Plan of Care Start Date 01/23/19 Plan of Care End Date 03/20/19 Therapeutic Interventions Therapeutic Interventions Balance Training,Gait Training ,Home Exercise Program,Joint Mobilizations,Manual Therapy, Neuromuscular Re-education, Orthotic/Prosthetic Management ,Patient/Caregiver Education, Self-Care/Home Management,Soft Tissue Mobilization,Taping, Therapeutic Activities, Therapeutic Exercises Modalities Cold Pack/Ice Massage Next Visit Focus/Plan Next Note Type Treatment Note Next Visit Plan Continue with CKC knee strengthening, single leg balance, global hip strengthening. Add quad stretches to home program.
--- NOTE | 2019-02-22 17:46 | PT.OTN ---
Current Diagnoses Pain in right knee (02/22/19) Physical Therapy Treatment Note PT-OP-A Visit Information Start: 01/24/19 14:55 Freq: Status: Active Protocol: Document 02/22/19 17:33 AW (Rec: 02/23/19 17:45 AW [id number]) Out-Patient Physical Therapy Visit Information Visit Information Visit Type Treatment Note Visit Start Time 10:32 Visit Stop Time 11:18 Total Visit Minutes 46 Visit Number 6 Number of MASH GRINDER Visits 0 PT-OP-B Current Condition Start: 01/24/19 14:55 Freq: Status: Active Protocol: Document 01/23/19 16:56 AW (Rec: 01/24/19 15:52 AW [id number]) Current Condition History of Current Condition Onset Date 01/01/19 Current Complaints R posterior and medial knee pain History of Current Condition Pt presents with painful right knee since early January when she was getting out of her car, caught her right foot , and twisted her knee. Some time after that, she was ascending stairs and accidentally led with her right leg at which point she felt her right knee collapsed and she was in excruciating pain. She had MRI on 01/13/19 ( see below for details). In the mornings, her knee feels stiff. She noted her pain is worst at night after a busy day and is exacerbated further by trying to lie with the knee in full extension. She is limited in her ambulation distance now due to pain which she characterizes as a burning sensation in her posterior and medial knee. She reports pain is waking her from sleep several times per night. Ice has been helpful, but nothing else improves her pain. Prior Treatments and Tests Pt was previously treated at this clinic for L posterior knee pain, discharged without completing plan of care in August 2018. MRI 01/13/19: Medial meniscal tear involving posterior horn with partial extrusion. Truncation of the free margin of the body lateral meniscus. Degenerative joint disease as above. Large Delgado's cyst. Future Testing and Treatments Planned None identified Treatment Goals Patient/Caregiver Goals Pt would like to have an appropriate home exercise program and be able to ambulate with less pain. 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 When I have increased pain, it does not last as long as it used to. PT-OP-D Balance Start: 01/24/19 14:55 Freq: Status: Active Protocol: Document 01/23/19 16:56 AW (Rec: 01/24/19 15:52 AW [id number]) OP-PT Balance Assessment Sitting Balance Static Sitting Balance Ability Good Dynamic Sitting Balance Ability Good Standing Balance Static Standing Balance Ability Fair Dynamic Standing Balance Ability Fair Device Used none Standing Balance Comments single-leg stance impaired bilaterally Balance Tests Single Limb Standing Single Limb- Right 1 second Single Limb- Left 4 seconds Gamboa Fall Scale Copyright Permission PT-OP-F Manual Assessment Start: 01/24/19 14:55 Freq: Status: Active Protocol: Document 01/23/19 16:56 AW (Rec: 01/24/19 15:52 AW [id number]) Manual Assessments Joint Mobility Assessment Joint Mobility Assessment R knee with obvious Delgado's cyst in popliteal space. No restriction in tibiofemoral joint mobility. Other Manual Assessments Other Manual Assessments Point tender at medial knee ( pes anserinus region) and palpable Delgado's cyst in popliteal space PT-OP-G Mobility & Gait Start: 01/24/19 14:55 Freq: Status: Active Protocol: Document 01/23/19 16:56 AW (Rec: 01/24/19 15:52 AW [id number]) OP Gait Assessment Comments Gait Comments Pt ambulates with lateral lean to right side, decreased step length, decreased foot clearance bilaterally. No assistive device PT-OP-H Neuro Start: 01/24/19 14:55 Freq: Status: Active Protocol: Document 01/23/19 16:56 AW (Rec: 01/24/19 15:52 AW [id number]) Sensation Evaluation Gross Sensation Gross Sensation WNL PT-OP-J Posture/Palpation/Skin Start: 01/24/19 14:55 Freq: Status: Active Protocol: Document 01/23/19 16:56 AW (Rec: 01/24/19 15:52 AW [id number]) Posture Evaluation Position Standing Knee Posture (L) Genu Valgus,(R) Genu Valgus Patellar Posture (L) Neutral,(R) Neutral Ankle/Foot Posture (L) Pronated,(R) Pronated,(L) Calcaneal Eversion,(R) Calcaneal Eversion Foot Arch (L) No Arch,(R) No Arch Sitting Foot Arch (L) No Arch,(R) No Arch Palpation Assessment Location One Palpation Location R knee Palpation Findings Muscle Guarding,Tenderness Palpation Details hamstrings guarding, tenderness at pes anserinus region and posterior knee PT-OP-K Range of Motion Start: 01/24/19 14:55 Freq: Status: Active Protocol: Document 01/23/19 16:56 AW (Rec: 01/24/19 15:52 AW [id number]) Hip Goniometric Range of Motion Hip ROM Limitations Comments Hip flexion: R 105 L110 ER limited bilaterally Knee Goniometric Range of Motion Knee ROM Limitations Knee ROM Limitations Soft Tissue Tightness,Pain Comments Knee flexion: R 120 L 125 Knee extension - lacking 5 degrees bilaterally PT-OP-L Special Tests Start: 01/24/19 14:55 Freq: Status: Active Protocol: Document 01/23/19 16:56 AW (Rec: 01/24/19 15:52 AW [id number]) Special Tests Hip Special Tests Scour Test Test Results negative bilaterally Knee Special Tests Ramon Test Results positive Comments positive bilaterally for rectus femoris tightness; positive bilaterally for ITB/ TFL tightness Narayan's Test Test Results positive left, negative right Comments positive for ITB/TFL tightness left side only Thessaly Test 5 Degrees Test Results negative left; positive right Comments provoked pain in right knee Shadi's Test Results negative bilaterally PT-OP-M Strength Start: 01/24/19 14:55 Freq: Status: Active Protocol: Document 01/23/19 16:56 AW (Rec: 01/24/19 15:52 AW [id number]) Hip Strength Hip Manual Muscle Testing Right Flexion (L2) 4- Good- Extension (S1) 3+ Fair+ Abduction 3+ Fair+ External Rotation 4 Good Internal Rotation 4 Good Comments extension tested in prone Left Flexion (L2) 4- Good- Extension (S1) 3+ Fair+ Abduction 3+ Fair+ External Rotation 4 Good Internal Rotation 4 Good Comments extension tested in prone Knee Strength Knee Manual Muscle Testing Right Flexion (S2) 4- Good- Extension (L3) 4 Good Left Flexion (S2) 4 Good Extension (L3) 4+ Good+ PT-OP-Q Treatments Start: 01/24/19 14:55 Freq: Status: Active Protocol: Document 02/22/19 17:33 AW (Rec: 02/23/19 17:45 AW [email or web address]) Cardio Equipment Recumbent Elliptical (Biodex) Duration (Minutes) 5 Resistance 3 Seat Position 8 Gym Equipment Shuttle Recovery Other- 1 Details bilateral squats Resistance 62.5 Shuttle Recovery Platform Stable Reps/Time 25 reps Therapeutic Exercises Standing Exercises 11 Standing Exercise Name hip hiking Side bilateral Reps/Minutes 2x12 reps Comments pt had inc post knee pain with prolonged time in knee extension 10 Standing Exercise Name lateral step down Side right Reps/Minutes 2x12 reps Comments cues to maintain neutral knee posture/avoid medical collapse 3 Standing Exercise Name crossover step up Side right Equipment Used 4 step Reps/Minutes 2x10 reps 2 Standing Exercise Name JAKUB stretch Side bilateral Reps/Minutes 2 minutes gastroc, 2 minutes soleus Comments cues to keep hips forward Manual Therapy Treatment Soft Tissue Mobilization 1 Body Location R lateral hamstring/lateral gastroc Mobilization Type Cross-Friction,Myofascial Release,Sustained Pressure Intensity/Depth Moderate Body Position Prone Comments STM to decrease tension across cyst. Self-Care/Home Management Treatment Education Patient Education Home Exercise Program Other Education 1 - TKE with level 1 band 2 - gastroc/soleus stretch 3 - resisted side-stepping with level 2 band 4 - seated hamstring stretch 5 - step-ups PT-OP-T Assessment and Plan Start: 01/24/19 14:55 Freq: Status: Active Protocol: Document 02/22/19 17:33 AW (Rec: 02/23/19 17:45 AW [email or web address]) Physical Therapy Assessment Goals Four Impairment 2-minute walk - 315.6 feet. Norm for older adults is 493 feet. Short Term Goal (STG) Pt will walk 375 feet on 2MW for increased activity tolerance STG Duration 02/13/19 Skilled Nursing Goal (LTG) Pt will walk 425 feet on 2MW for increased activity tolerance LTG Duration 03/20/19 Three Impairment Pt scores 33/80 on LEFS Short Term Goal (STG) Pt will score 42/80 or better for improved daily function STG Duration 02/13/19 Skilled Nursing Goal (LTG) Pt will score 48/80 or better for improved daily function LTG Duration 03/20/19 Two Impairment Pt unable to lie flat for restful sleep without increased pain Short Term Goal (STG) Pt will tolerate lying with knee in full extension for 10 minutes without increased pain STG Duration 02/13/19 Check Clerk Goal (LTG) Pt will tolerate lying with knee in full extension at least one hour without increased pain LTG Duration 03/20/19 One Impairment Pt without HEP Short Term Goal (STG) Pt will be independent with HEP STG Duration 02/13/19 Check Clerk Goal (LTG) Pt will be independent with maintenance HEP LTG Duration 03/20/19 Progress Towards Goals Progress Towards Goals Progressing Toward Goals,Slow Progress due to Activity Tolerance Assessment Summary Assessment Pt educated on likelihood that CKC strengthening for knee stability is most likely to impact her symptoms and that relieving tension of soft tissue around the Delgado cyst may also be beneficial. Pt advised to continue stretches and strengthening exercise at home as long as they don't increase her knee pain more than 2 points on a 10-point scale Physical Therapy Plan Frequency and Duration Frequency of Treatment 1-2x/week Duration of Treatment 8 weeks Plan of Care Start Date 01/23/19 Plan of Care End Date 03/20/19 Therapeutic Interventions Therapeutic Interventions Balance Training,Gait Training ,Home Exercise Program,Joint Mobilizations,Manual Therapy, Neuromuscular Re-education, Orthotic/Prosthetic Management ,Patient/Caregiver Education, Self-Care/Home Management,Soft Tissue Mobilization,Taping, Therapeutic Activities, Therapeutic Exercises Next Visit Focus/Plan Next Note Type Treatment Note Next Visit Plan ASSESS STG Continue with CKC knee strengthening, single leg balance, global hip strengthening. Add quad stretches to home program.
--- NOTE | 2019-02-24 14:32 | PT.OTN ---
Current Diagnoses Pain in right knee (02/24/19) Physical Therapy Treatment Note PT-OP-A Visit Information Start: 01/24/19 14:55 Freq: Status: Active Protocol: Document 02/24/19 13:45 DCW (Rec: 02/24/19 14:32 DCW [id number]) Out-Patient Physical Therapy Visit Information Visit Information Visit Type Treatment Note Visit Start Time 13:45 Visit Stop Time 14:30 Total Visit Minutes 45 Visit Number 7 Number of CHROMOSOMAL DISORDERS COUNSELOR Visits 0 Evaluation Information Evaluation Date 01/23/19 PT-OP-B Current Condition Start: 01/24/19 14:55 Freq: Status: Active Protocol: Document 01/23/19 16:56 AW (Rec: 01/24/19 15:52 AW [id number]) Current Condition History of Current Condition Onset Date 01/01/19 Current Complaints R posterior and medial knee pain History of Current Condition Pt presents with painful right knee since early January when she was getting out of her car, caught her right foot , and twisted her knee. Some time after that, she was ascending stairs and accidentally led with her right leg at which point she felt her right knee collapsed and she was in excruciating pain. She had MRI on 01/13/19 ( see below for details). In the mornings, her knee feels stiff. She noted her pain is worst at night after a busy day and is exacerbated further by trying to lie with the knee in full extension. She is limited in her ambulation distance now due to pain which she characterizes as a burning sensation in her posterior and medial knee. She reports pain is waking her from sleep several times per night. Ice has been helpful, but nothing else improves her pain. Prior Treatments and Tests Pt was previously treated at this clinic for L posterior knee pain, discharged without completing plan of care in August 2018. MRI 01/13/19: Medial meniscal tear involving posterior horn with partial extrusion. Truncation of the free margin of the body lateral meniscus. Degenerative joint disease as above. Large Delgado's cyst. Future Testing and Treatments Planned None identified Treatment Goals Patient/Caregiver Goals Pt would like to have an appropriate home exercise program and be able to ambulate with less pain. 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 Notes she still goes down step-to, because going down is a lot scarier. PT-OP-D Balance Start: 01/24/19 14:55 Freq: Status: Active Protocol: Document 01/23/19 16:56 AW (Rec: 01/24/19 15:52 AW [id number]) OP-PT Balance Assessment Sitting Balance Static Sitting Balance Ability Good Dynamic Sitting Balance Ability Good Standing Balance Static Standing Balance Ability Fair Dynamic Standing Balance Ability Fair Device Used none Standing Balance Comments single-leg stance impaired bilaterally Balance Tests Single Limb Standing Single Limb- Right 1 second Single Limb- Left 4 seconds Gamboa Fall Scale Copyright Permission PT-OP-F Manual Assessment Start: 01/24/19 14:55 Freq: Status: Active Protocol: Document 01/23/19 16:56 AW (Rec: 01/24/19 15:52 AW [id number]) Manual Assessments Joint Mobility Assessment Joint Mobility Assessment R knee with obvious Delgado's cyst in popliteal space. No restriction in tibiofemoral joint mobility. Other Manual Assessments Other Manual Assessments Point tender at medial knee ( pes anserinus region) and palpable Delgado's cyst in popliteal space PT-OP-G Mobility & Gait Start: 01/24/19 14:55 Freq: Status: Active Protocol: Document 01/23/19 16:56 AW (Rec: 01/24/19 15:52 AW [id number]) OP Gait Assessment Comments Gait Comments Pt ambulates with lateral lean to right side, decreased step length, decreased foot clearance bilaterally. No assistive device PT-OP-H Neuro Start: 01/24/19 14:55 Freq: Status: Active Protocol: Document 01/23/19 16:56 AW (Rec: 01/24/19 15:52 AW [id number]) Sensation Evaluation Gross Sensation Gross Sensation WNL PT-OP-J Posture/Palpation/Skin Start: 01/24/19 14:55 Freq: Status: Active Protocol: Document 01/23/19 16:56 AW (Rec: 01/24/19 15:52 AW [id number]) Posture Evaluation Position Standing Knee Posture (L) Genu Valgus,(R) Genu Valgus Patellar Posture (L) Neutral,(R) Neutral Ankle/Foot Posture (L) Pronated,(R) Pronated,(L) Calcaneal Eversion,(R) Calcaneal Eversion Foot Arch (L) No Arch,(R) No Arch Sitting Foot Arch (L) No Arch,(R) No Arch Palpation Assessment Location One Palpation Location R knee Palpation Findings Muscle Guarding,Tenderness Palpation Details hamstrings guarding, tenderness at pes anserinus region and posterior knee PT-OP-K Range of Motion Start: 01/24/19 14:55 Freq: Status: Active Protocol: Document 01/23/19 16:56 AW (Rec: 01/24/19 15:52 AW [id number]) Hip Goniometric Range of Motion Hip ROM Limitations Comments Hip flexion: R 105 L110 ER limited bilaterally Knee Goniometric Range of Motion Knee ROM Limitations Knee ROM Limitations Soft Tissue Tightness,Pain Comments Knee flexion: R 120 L 125 Knee extension - lacking 5 degrees bilaterally PT-OP-L Special Tests Start: 01/24/19 14:55 Freq: Status: Active Protocol: Document 01/23/19 16:56 AW (Rec: 01/24/19 15:52 AW [id number]) Special Tests Hip Special Tests Scour Test Test Results negative bilaterally Knee Special Tests Ramon Test Results positive Comments positive bilaterally for rectus femoris tightness; positive bilaterally for ITB/ TFL tightness Narayan's Test Test Results positive left, negative right Comments positive for ITB/TFL tightness left side only Thessaly Test 5 Degrees Test Results negative left; positive right Comments provoked pain in right knee Shadi's Test Results negative bilaterally PT-OP-M Strength Start: 01/24/19 14:55 Freq: Status: Active Protocol: Document 01/23/19 16:56 AW (Rec: 01/24/19 15:52 AW [id number]) Hip Strength Hip Manual Muscle Testing Right Flexion (L2) 4- Good- Extension (S1) 3+ Fair+ Abduction 3+ Fair+ External Rotation 4 Good Internal Rotation 4 Good Comments extension tested in prone Left Flexion (L2) 4- Good- Extension (S1) 3+ Fair+ Abduction 3+ Fair+ External Rotation 4 Good Internal Rotation 4 Good Comments extension tested in prone Knee Strength Knee Manual Muscle Testing Right Flexion (S2) 4- Good- Extension (L3) 4 Good Left Flexion (S2) 4 Good Extension (L3) 4+ Good+ PT-OP-Q Treatments Start: 01/24/19 14:55 Freq: Status: Active Protocol: Document 02/24/19 13:45 DCW (Rec: 02/24/19 14:32 DCW [id number]) Cardio Equipment Recumbent Elliptical (Biodex) Duration (Minutes) 5 Resistance 4 Seat Position 8 Gym Equipment Shuttle Recovery Other- 1 Details bilateral squats Resistance 75# Shuttle Recovery Platform Stable Therapeutic Ball Resisted Hip/knee flexion Exercise Details Resisted hip/knee flexion Ball Size/Color Red - 55 cm Lv 2 T-band Body Position Supine Therapeutic Exercises Supine Exercises 4 Supine Exercise Name hamstring stretch Side right Resistance manual Reps/Minutes 2 minutes Comments contract/relax Standing Exercises 4 Standing Exercise Name resisted side-stepping Side bilateral Equipment Used yellow loop Reps/Minutes 20' x4 2 Standing Exercise Name JAKUB stretch Side bilateral Reps/Minutes 2 minutes gastroc, 2 minutes soleus Comments cues to keep hips forward 1 Standing Exercise Name TKE Side bilateral Resistance level 3 band Reps/Minutes 2x15 reps Comments VCs for techniqye Manual Therapy Treatment Soft Tissue Mobilization 1 Body Location R lateral hamstring/lateral gastroc Mobilization Type Cross-Friction,Myofascial Release,Sustained Pressure Intensity/Depth Moderate Body Position Prone Comments STM to decrease tension across cyst. PT-OP-T Assessment and Plan Start: 01/24/19 14:55 Freq: Status: Active Protocol: Document 02/24/19 13:45 DCW (Rec: 02/24/19 14:32 DCW [id number]) Physical Therapy Assessment Goals Four Impairment 2-minute walk - 315.6 feet. Norm for older adults is 493 feet. Short Term Goal (STG) Pt will walk 375 feet on 2MW for increased activity tolerance STG Duration 02/13/19 Director Embalmer Goal (LTG) Pt will walk 425 feet on 2MW for increased activity tolerance LTG Duration 03/20/19 Three Impairment Pt scores 33/80 on LEFS Short Term Goal (STG) Pt will score 42/80 or better for improved daily function STG Duration 02/13/19 Director Embalmer Goal (LTG) Pt will score 48/80 or better for improved daily function LTG Duration 03/20/19 Two Impairment Pt unable to lie flat for restful sleep without increased pain Short Term Goal (STG) Pt will tolerate lying with knee in full extension for 10 minutes without increased pain STG Duration 02/13/19 Fdc Goal (LTG) Pt will tolerate lying with knee in full extension at least one hour without increased pain LTG Duration 03/20/19 One Impairment Pt without HEP Short Term Goal (STG) Pt will be independent with HEP STG Duration 02/13/19 Director Embalmer Goal (LTG) Pt will be independent with maintenance HEP LTG Duration 03/20/19 Progress Towards Goals Progress Towards Goals Progressing Toward Goals,Slow Progress due to Activity Tolerance Assessment Summary Assessment Pt tolerating treatment well, doing a fair amount of her HEP at home. Continued therapy for strengthening of knee, decreasing pain, and improving mobility. Physical Therapy Plan Frequency and Duration Frequency of Treatment 1-2x/week Duration of Treatment 8 weeks Plan of Care Start Date 01/23/19 Plan of Care End Date 03/20/19 Therapeutic Interventions Therapeutic Interventions Balance Training,Gait Training ,Home Exercise Program,Joint Mobilizations,Manual Therapy, Neuromuscular Re-education, Orthotic/Prosthetic Management ,Patient/Caregiver Education, Self-Care/Home Management,Soft Tissue Mobilization,Taping, Therapeutic Activities, Therapeutic Exercises Next Visit Focus/Plan Next Note Type Treatment Note Next Visit Plan ASSESS STG Continue with [facility] knee strengthening, single leg balance, global hip strengthening. Add quad stretches to home program.
--- NOTE | 2019-02-27 16:43 | PT.OTN ---
Current Diagnoses Pain in right knee (02/27/19) Physical Therapy Treatment Note PT-OP-A Visit Information Start: 01/24/19 14:55 Freq: Status: Active Protocol: Document 02/27/19 16:22 AW (Rec: 02/27/19 16:43 AW [email or web address]) Out-Patient Physical Therapy Visit Information Visit Information Visit Type Treatment Note Visit Start Time 15:10 Visit Stop Time 15:57 Total Visit Minutes 47 Visit Number 8 Number of STEEL BUFFER Visits 0 Evaluation Information Evaluation Date 01/23/19 PT-OP-B Current Condition Start: 01/24/19 14:55 Freq: Status: Active Protocol: Document 01/23/19 16:56 AW (Rec: 01/24/19 15:52 AW [id number]) Current Condition History of Current Condition Onset Date 01/01/19 Current Complaints R posterior and medial knee pain History of Current Condition Pt presents with painful right knee since early January when she was getting out of her car, caught her right foot , and twisted her knee. Some time after that, she was ascending stairs and accidentally led with her right leg at which point she felt her right knee collapsed and she was in excruciating pain. She had MRI on 01/13/19 ( see below for details). In the mornings, her knee feels stiff. She noted her pain is worst at night after a busy day and is exacerbated further by trying to lie with the knee in full extension. She is limited in her ambulation distance now due to pain which she characterizes as a burning sensation in her posterior and medial knee. She reports pain is waking her from sleep several times per night. Ice has been helpful, but nothing else improves her pain. Prior Treatments and Tests Pt was previously treated at this clinic for L posterior knee pain, discharged without completing plan of care in August 2018. MRI 01/13/19: Medial meniscal tear involving posterior horn with partial extrusion. Truncation of the free margin of the body lateral meniscus. Degenerative joint disease as above. Large Delgado's cyst. Future Testing and Treatments Planned None identified Treatment Goals Patient/Caregiver Goals Pt would like to have an appropriate home exercise program and be able to ambulate with less pain. 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 Her posterior knee pain is worse with standing long periods, but ok with walking. Patient Reported Progress Improving PT-OP-D Balance Start: 01/24/19 14:55 Freq: Status: Active Protocol: Document 01/23/19 16:56 AW (Rec: 01/24/19 15:52 AW [id number]) OP-PT Balance Assessment Sitting Balance Static Sitting Balance Ability Good Dynamic Sitting Balance Ability Good Standing Balance Static Standing Balance Ability Fair Dynamic Standing Balance Ability Fair Device Used none Standing Balance Comments single-leg stance impaired bilaterally Balance Tests Single Limb Standing Single Limb- Right 1 second Single Limb- Left 4 seconds Gamboa Fall Scale Copyright Permission PT-OP-F Manual Assessment Start: 01/24/19 14:55 Freq: Status: Active Protocol: Document 01/23/19 16:56 AW (Rec: 01/24/19 15:52 AW [id number]) Manual Assessments Joint Mobility Assessment Joint Mobility Assessment R knee with obvious Delgado's cyst in popliteal space. No restriction in tibiofemoral joint mobility. Other Manual Assessments Other Manual Assessments Point tender at medial knee ( pes anserinus region) and palpable Delgado's cyst in popliteal space PT-OP-G Mobility & Gait Start: 01/24/19 14:55 Freq: Status: Active Protocol: Document 01/23/19 16:56 AW (Rec: 01/24/19 15:52 AW [id number]) OP Gait Assessment Comments Gait Comments Pt ambulates with lateral lean to right side, decreased step length, decreased foot clearance bilaterally. No assistive device PT-OP-H Neuro Start: 01/24/19 14:55 Freq: Status: Active Protocol: Document 01/23/19 16:56 AW (Rec: 01/24/19 15:52 AW [id number]) Sensation Evaluation Gross Sensation Gross Sensation WNL PT-OP-J Posture/Palpation/Skin Start: 01/24/19 14:55 Freq: Status: Active Protocol: Document 01/23/19 16:56 AW (Rec: 01/24/19 15:52 AW [id number]) Posture Evaluation Position Standing Knee Posture (L) Genu Valgus,(R) Genu Valgus Patellar Posture (L) Neutral,(R) Neutral Ankle/Foot Posture (L) Pronated,(R) Pronated,(L) Calcaneal Eversion,(R) Calcaneal Eversion Foot Arch (L) No Arch,(R) No Arch Sitting Foot Arch (L) No Arch,(R) No Arch Palpation Assessment Location One Palpation Location R knee Palpation Findings Muscle Guarding,Tenderness Palpation Details hamstrings guarding, tenderness at pes anserinus region and posterior knee PT-OP-K Range of Motion Start: 01/24/19 14:55 Freq: Status: Active Protocol: Document 01/23/19 16:56 AW (Rec: 01/24/19 15:52 AW [id number]) Hip Goniometric Range of Motion Hip ROM Limitations Comments Hip flexion: R 105 L110 ER limited bilaterally Knee Goniometric Range of Motion Knee ROM Limitations Knee ROM Limitations Soft Tissue Tightness,Pain Comments Knee flexion: R 120 L 125 Knee extension - lacking 5 degrees bilaterally PT-OP-L Special Tests Start: 01/24/19 14:55 Freq: Status: Active Protocol: Document 01/23/19 16:56 AW (Rec: 01/24/19 15:52 AW [id number]) Special Tests Hip Special Tests Scour Test Test Results negative bilaterally Knee Special Tests Ramon Test Results positive Comments positive bilaterally for rectus femoris tightness; positive bilaterally for ITB/ TFL tightness Narayan's Test Test Results positive left, negative right Comments positive for ITB/TFL tightness left side only Thessaly Test 5 Degrees Test Results negative left; positive right Comments provoked pain in right knee Shadi's Test Results negative bilaterally PT-OP-M Strength Start: 01/24/19 14:55 Freq: Status: Active Protocol: Document 01/23/19 16:56 AW (Rec: 01/24/19 15:52 AW [id number]) Hip Strength Hip Manual Muscle Testing Right Flexion (L2) 4- Good- Extension (S1) 3+ Fair+ Abduction 3+ Fair+ External Rotation 4 Good Internal Rotation 4 Good Comments extension tested in prone Left Flexion (L2) 4- Good- Extension (S1) 3+ Fair+ Abduction 3+ Fair+ External Rotation 4 Good Internal Rotation 4 Good Comments extension tested in prone Knee Strength Knee Manual Muscle Testing Right Flexion (S2) 4- Good- Extension (L3) 4 Good Left Flexion (S2) 4 Good Extension (L3) 4+ Good+ PT-OP-Q Treatments Start: 01/24/19 14:55 Freq: Status: Active Protocol: Document 02/27/19 16:22 AW (Rec: 02/27/19 16:43 AW [email or web address]) Cardio Equipment Recumbent Elliptical (Biodex) Duration (Minutes) 5 Resistance 4 Seat Position 8 Gym Equipment Shuttle Recovery Other- 1 Details bilateral squats Resistance 75# Shuttle Recovery Platform Stable Reps/Time 25 reps Bilateral Squats Details bilateral squats Resistance 75# Shuttle Recovery Platform Unstable Reps/Time 25 reps Shuttle Balance 1 Details EO, EC, narrow stance Reps/Duration 5 minutes Comments for improved hip stability and equal weightbearing Therapeutic Exercises Supine Exercises 5 Supine Exercise Name bridge with adduction Side bilateral Equipment Used green ball Reps/Minutes 2x12 reps Standing Exercises 13 Standing Exercise Name isometric hip flexion Side bilateral Equipment Used 45 cm T ball Reps/Minutes 1x10 bilat 12 Standing Exercise Name isometric glute med at wall Side bilateral Equipment Used small green ball Reps/Minutes 1x10 bilat Comments cues to avoid pelvic rotation 3 Standing Exercise Name crossover step up Side right Equipment Used 6 step Reps/Minutes 2x10 reps 2 Standing Exercise Name JAKUB stretch Side bilateral Reps/Minutes 2 minutes gastroc, 2 minutes soleus Comments cues to keep hips forward 1 Standing Exercise Name TKE Side bilateral Resistance level 4 band Reps/Minutes 2x15 reps Comments VCs for techniqye Manual Therapy Treatment Soft Tissue Mobilization 1 Body Location R lateral hamstring/lateral gastroc Mobilization Type Cross-Friction,Myofascial Release,Sustained Pressure Intensity/Depth Moderate Body Position Prone Comments STM to decrease tension across cyst. Joint Mobilizations 2 Joint patellar glides Direction superior, inferior, medial, lateral Grade II Body Position Supine Reps/Duration 5 minutes Comments greatest restriction with medial glides bilaterally Self-Care/Home Management Treatment Education Patient Education Home Exercise Program Other Education 1 - TKE with level 1 band 2 - gastroc/soleus stretch 3 - resisted side-stepping with level 2 band 4 - seated hamstring stretch 5 - step-ups PT-OP-T Assessment and Plan Start: 01/24/19 14:55 Freq: Status: Active Protocol: Document 02/27/19 16:22 AW (Rec: 02/27/19 16:43 AW [email or web address]) Physical Therapy Assessment Goals Four Impairment 2-minute walk - 315.6 feet. Norm for older adults is 493 feet. Short Term Goal (STG) Pt will walk 375 feet on 2MW for increased activity tolerance 02/22/19: MET - Pt walked 410 feet on 2MWT. STG Duration 02/13/19 Political Science Chair Goal (LTG) Pt will walk 425 feet on 2MW for increased activity tolerance LTG Duration 03/20/19 Three Impairment Pt scores 33/80 on LEFS Short Term Goal (STG) Pt will score 42/80 or better for improved daily function 02/27/19: MET - Pt scored 59 on LEFS. Two items were left blank. Percentage score - 82%. STG Duration 02/13/19 [facility] Goal (LTG) Pt will score 48/80 or better for improved daily function LTG Duration 03/20/19 Two Impairment Pt unable to lie flat for restful sleep without increased pain Short Term Goal (STG) Pt will tolerate lying with knee in full extension for 10 minutes without increased pain 02/27/19: NOT ASSESSED: Pt reports she typically uses a pillow under her knee when lying flat at this time, so can not report tolerance for lying flat. STG Duration 02/13/19 Political Science Chair Goal (LTG) Pt will tolerate lying with knee in full extension at least one hour without increased pain LTG Duration 03/20/19 One Impairment Pt without HEP Short Term Goal (STG) Pt will be independent with HEP. 02/22/19: MET STG Duration 02/13/19 [facility] Goal (LTG) Pt will be independent with maintenance HEP LTG Duration 03/20/19 Progress Towards Goals Progress Towards Goals Progressing Toward Goals,Slow Progress due to Activity Tolerance Assessment Summary Assessment Pt has met short term goals. She is tolerating increased challenge in ther ex well. She will continue to benefit from CKC knee strengthening as well as global hip strengthening/stability. Physical Therapy Plan Frequency and Duration Frequency of Treatment 1-2x/week Duration of Treatment 8 weeks Plan of Care Start Date 01/23/19 Plan of Care End Date 03/20/19 Therapeutic Interventions Therapeutic Interventions Balance Training,Gait Training ,Home Exercise Program,Joint Mobilizations,Manual Therapy, Neuromuscular Re-education, Orthotic/Prosthetic Management ,Patient/Caregiver Education, Self-Care/Home Management,Soft Tissue Mobilization,Taping, Therapeutic Activities, Therapeutic Exercises Next Visit Focus/Plan Next Note Type Treatment Note Next Visit Plan Continue with CKC knee strengthening, single leg balance, global hip strengthening. Add quad stretches to home program.
--- NOTE | 2019-03-01 17:34 | PT.OTN ---
Current Diagnoses Pain in right knee (03/01/19) Physical Therapy Treatment Note PT-OP-A Visit Information Start: 01/24/19 14:55 Freq: Status: Active Protocol: Document 03/01/19 17:21 AW (Rec: 03/01/19 17:34 AW [email or web address]) Out-Patient Physical Therapy Visit Information Visit Information Visit Type Treatment Note Visit Start Time 15:15 Visit Stop Time 15:56 Total Visit Minutes 41 Visit Number 9 Number of SALES UTILITY REPRESENTATIVE Visits 0 Evaluation Information Evaluation Date 01/23/19 PT-OP-B Current Condition Start: 01/24/19 14:55 Freq: Status: Active Protocol: Document 01/23/19 16:56 AW (Rec: 01/24/19 15:52 AW [id number]) Current Condition History of Current Condition Onset Date 01/01/19 Current Complaints R posterior and medial knee pain History of Current Condition Pt presents with painful right knee since early January when she was getting out of her car, caught her right foot , and twisted her knee. Some time after that, she was ascending stairs and accidentally led with her right leg at which point she felt her right knee collapsed and she was in excruciating pain. She had MRI on 01/13/19 ( see below for details). In the mornings, her knee feels stiff. She noted her pain is worst at night after a busy day and is exacerbated further by trying to lie with the knee in full extension. She is limited in her ambulation distance now due to pain which she characterizes as a burning sensation in her posterior and medial knee. She reports pain is waking her from sleep several times per night. Ice has been helpful, but nothing else improves her pain. Prior Treatments and Tests Pt was previously treated at this clinic for L posterior knee pain, discharged without completing plan of care in August 2018. MRI 01/13/19: Medial meniscal tear involving posterior horn with partial extrusion. Truncation of the free margin of the body lateral meniscus. Degenerative joint disease as above. Large Delgado's cyst. Future Testing and Treatments Planned None identified Treatment Goals Patient/Caregiver Goals Pt would like to have an appropriate home exercise program and be able to ambulate with less pain. 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 Patient Reported Progress Improving PT-OP-D Balance Start: 01/24/19 14:55 Freq: Status: Active Protocol: Document 01/23/19 16:56 AW (Rec: 01/24/19 15:52 AW [id number]) OP-PT Balance Assessment Sitting Balance Static Sitting Balance Ability Good Dynamic Sitting Balance Ability Good Standing Balance Static Standing Balance Ability Fair Dynamic Standing Balance Ability Fair Device Used none Standing Balance Comments single-leg stance impaired bilaterally Balance Tests Single Limb Standing Single Limb- Right 1 second Single Limb- Left 4 seconds Gamboa Fall Scale Copyright Permission PT-OP-F Manual Assessment Start: 01/24/19 14:55 Freq: Status: Active Protocol: Document 01/23/19 16:56 AW (Rec: 01/24/19 15:52 AW [id number]) Manual Assessments Joint Mobility Assessment Joint Mobility Assessment R knee with obvious Delgado's cyst in popliteal space. No restriction in tibiofemoral joint mobility. Other Manual Assessments Other Manual Assessments Point tender at medial knee ( pes anserinus region) and palpable Delgado's cyst in popliteal space PT-OP-G Mobility & Gait Start: 01/24/19 14:55 Freq: Status: Active Protocol: Document 01/23/19 16:56 AW (Rec: 01/24/19 15:52 AW [id number]) OP Gait Assessment Comments Gait Comments Pt ambulates with lateral lean to right side, decreased step length, decreased foot clearance bilaterally. No assistive device PT-OP-H Neuro Start: 01/24/19 14:55 Freq: Status: Active Protocol: Document 01/23/19 16:56 AW (Rec: 01/24/19 15:52 AW [id number]) Sensation Evaluation Gross Sensation Gross Sensation WNL PT-OP-J Posture/Palpation/Skin Start: 01/24/19 14:55 Freq: Status: Active Protocol: Document 01/23/19 16:56 AW (Rec: 01/24/19 15:52 AW [id number]) Posture Evaluation Position Standing Knee Posture (L) Genu Valgus,(R) Genu Valgus Patellar Posture (L) Neutral,(R) Neutral Ankle/Foot Posture (L) Pronated,(R) Pronated,(L) Calcaneal Eversion,(R) Calcaneal Eversion Foot Arch (L) No Arch,(R) No Arch Sitting Foot Arch (L) No Arch,(R) No Arch Palpation Assessment Location One Palpation Location R knee Palpation Findings Muscle Guarding,Tenderness Palpation Details hamstrings guarding, tenderness at pes anserinus region and posterior knee PT-OP-K Range of Motion Start: 01/24/19 14:55 Freq: Status: Active Protocol: Document 01/23/19 16:56 AW (Rec: 01/24/19 15:52 AW [id number]) Hip Goniometric Range of Motion Hip ROM Limitations Comments Hip flexion: R 105 L110 ER limited bilaterally Knee Goniometric Range of Motion Knee ROM Limitations Knee ROM Limitations Soft Tissue Tightness,Pain Comments Knee flexion: R 120 L 125 Knee extension - lacking 5 degrees bilaterally PT-OP-L Special Tests Start: 01/24/19 14:55 Freq: Status: Active Protocol: Document 01/23/19 16:56 AW (Rec: 01/24/19 15:52 AW [id number]) Special Tests Hip Special Tests Scour Test Test Results negative bilaterally Knee Special Tests Ramon Test Results positive Comments positive bilaterally for rectus femoris tightness; positive bilaterally for ITB/ TFL tightness Narayan's Test Test Results positive left, negative right Comments positive for ITB/TFL tightness left side only Thessaly Test 5 Degrees Test Results negative left; positive right Comments provoked pain in right knee Shadi's Test Results negative bilaterally PT-OP-M Strength Start: 01/24/19 14:55 Freq: Status: Active Protocol: Document 01/23/19 16:56 AW (Rec: 01/24/19 15:52 AW [id number]) Hip Strength Hip Manual Muscle Testing Right Flexion (L2) 4- Good- Extension (S1) 3+ Fair+ Abduction 3+ Fair+ External Rotation 4 Good Internal Rotation 4 Good Comments extension tested in prone Left Flexion (L2) 4- Good- Extension (S1) 3+ Fair+ Abduction 3+ Fair+ External Rotation 4 Good Internal Rotation 4 Good Comments extension tested in prone Knee Strength Knee Manual Muscle Testing Right Flexion (S2) 4- Good- Extension (L3) 4 Good Left Flexion (S2) 4 Good Extension (L3) 4+ Good+ PT-OP-Q Treatments Start: 01/24/19 14:55 Freq: Status: Active Protocol: Document 03/01/19 17:21 AW (Rec: 03/01/19 17:34 AW [email or web address]) Cardio Equipment Recumbent Elliptical (Biodex) Duration (Minutes) 5 Resistance 4 Seat Position 8 Gym Equipment Shuttle Recovery Bilateral Squats Details bilateral squats Resistance 87.5# Shuttle Recovery Platform Unstable Reps/Time 25 reps Therapeutic Exercises Sitting Exercises HS stretch Sitting Exercise Name HS stretch Side right Reps/Minutes 2 minutes Standing Exercises resisted hip flexion Standing Exercise Name resisted hip flexion Side bilateral Resistance yellow Equipment Used T band Reps/Minutes 2x10 reps quad stretch Standing Exercise Name quad stretch Side right Equipment Used 2 chairs Reps/Minutes 2 minutes Comments chair in front for support; top of foot rests on chair behind pt 11 Standing Exercise Name hip hiking Side bilateral Equipment Used 6 step Reps/Minutes 2x12 reps Comments improved tolerance to WB knee extension 6 Standing Exercise Name Eccentric step down Side bilateral Resistance body wt Equipment Used 4 step Reps/Minutes 2x10 Comments not allowing knees over toes, heel press with glut activation 3 Standing Exercise Name crossover step up Side bilateral Equipment Used 8 step Reps/Minutes 2x10 reps Comments pt tolerated increased step ht 2 Standing Exercise Name JAKUB stretch Side bilateral Reps/Minutes 2 minutes gastroc, 2 minutes soleus Comments cues to keep hips forward and stretch statically Manual Therapy Treatment Soft Tissue Mobilization 1 Body Location R lateral hamstring/lateral gastroc Mobilization Type Cross-Friction,Myofascial Release,Sustained Pressure Intensity/Depth Moderate Body Position Prone Comments STM to decrease tension across cyst. Joint Mobilizations 2 Joint patellar glides Direction superior, inferior, medial, lateral Grade II Body Position Supine Reps/Duration 5 minutes Comments greatest restriction with medial glides bilaterally Self-Care/Home Management Treatment Education Patient Education Home Exercise Program Other Education 1 - TKE with level 1 band 2 - gastroc/soleus stretch 3 - resisted side-stepping with level 2 band 4 - seated hamstring stretch 5 - step-ups 6 - standing quad stretch PT-OP-T Assessment and Plan Start: 01/24/19 14:55 Freq: Status: Active Protocol: Document 03/01/19 17:21 AW (Rec: 03/01/19 17:34 AW [email or web address]) Physical Therapy Assessment Goals Four Impairment 2-minute walk - 315.6 feet. Norm for older adults is 493 feet. Short Term Goal (STG) Pt will walk 375 feet on 2MW for increased activity tolerance 02/22/19: MET - Pt walked 410 feet on 2MWT. STG Duration 02/13/19 [facility] Goal (LTG) Pt will walk 425 feet on 2MW for increased activity tolerance LTG Duration 03/20/19 Three Impairment Pt scores 33/80 on LEFS Short Term Goal (STG) Pt will score 42/80 or better for improved daily function 02/27/19: MET - Pt scored 59 on LEFS. Two items were left blank. Percentage score - 82%. STG Duration 02/13/19 [facility] Goal (LTG) Pt will score 48/80 or better for improved daily function LTG Duration 03/20/19 Two Impairment Pt unable to lie flat for restful sleep without increased pain Short Term Goal (STG) Pt will tolerate lying with knee in full extension for 10 minutes without increased pain 02/27/19: NOT ASSESSED: Pt reports she typically uses a pillow under her knee when lying flat at this time, so can not report tolerance for lying flat. STG Duration 02/13/19 [facility] Goal (LTG) Pt will tolerate lying with knee in full extension at least one hour without increased pain LTG Duration 03/20/19 One Impairment Pt without HEP Short Term Goal (STG) Pt will be independent with HEP. 02/22/19: MET STG Duration 02/13/19 Fur Buyer Goal (LTG) Pt will be independent with maintenance HEP LTG Duration 03/20/19 Progress Towards Goals Progress Towards Goals Progressing Toward Goals,Slow Progress due to Activity Tolerance Assessment Summary Assessment Pt feels she is improving overall, but would like to improve her confidence going down stairs. She shows good effort with all activities in clinic and has improved knee and hip strength. Physical Therapy Plan Frequency and Duration Frequency of Treatment 1-2x/week Duration of Treatment 8 weeks Plan of Care Start Date 01/23/19 Plan of Care End Date 03/20/19 Therapeutic Interventions Therapeutic Interventions Balance Training,Gait Training ,Home Exercise Program,Joint Mobilizations,Manual Therapy, Neuromuscular Re-education, Orthotic/Prosthetic Management ,Patient/Caregiver Education, Self-Care/Home Management,Soft Tissue Mobilization,Taping, Therapeutic Activities, Therapeutic Exercises Next Visit Focus/Plan Next Note Type Treatment Note Next Visit Plan Continue with CKC knee strengthening, single leg balance, global hip strengthening. Add step downs to home program.
--- NOTE | 2019-03-06 17:27 | PT.OTN ---
Current Diagnoses Pain in right knee (03/06/19) Physical Therapy Treatment Note PT-OP-A Visit Information Start: 01/24/19 14:55 Freq: Status: Active Protocol: Document 03/06/19 17:18 AW (Rec: 03/06/19 17:27 AW [email or web address]) Out-Patient Physical Therapy Visit Information Visit Information Visit Type Treatment Note Visit Start Time 13:45 Visit Stop Time 14:30 Total Visit Minutes 40 Visit Number 10 Number of BUSINESS SEGMENT MANAGER Visits 0 Evaluation Information Evaluation Date 01/23/19 PT-OP-B Current Condition Start: 01/24/19 14:55 Freq: Status: Active Protocol: Document 01/23/19 16:56 AW (Rec: 01/24/19 15:52 AW [id number]) Current Condition History of Current Condition Onset Date 01/01/19 Current Complaints R posterior and medial knee pain History of Current Condition Pt presents with painful right knee since early January when she was getting out of her car, caught her right foot , and twisted her knee. Some time after that, she was ascending stairs and accidentally led with her right leg at which point she felt her right knee collapsed and she was in excruciating pain. She had MRI on 01/13/19 ( see below for details). In the mornings, her knee feels stiff. She noted her pain is worst at night after a busy day and is exacerbated further by trying to lie with the knee in full extension. She is limited in her ambulation distance now due to pain which she characterizes as a burning sensation in her posterior and medial knee. She reports pain is waking her from sleep several times per night. Ice has been helpful, but nothing else improves her pain. Prior Treatments and Tests Pt was previously treated at this clinic for L posterior knee pain, discharged without completing plan of care in August 2018. MRI 01/13/19: Medial meniscal tear involving posterior horn with partial extrusion. Truncation of the free margin of the body lateral meniscus. Degenerative joint disease as above. Large Delgado's cyst. Future Testing and Treatments Planned None identified Treatment Goals Patient/Caregiver Goals Pt would like to have an appropriate home exercise program and be able to ambulate with less pain. 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 Patient Reported Progress Improving PT-OP-D Balance Start: 01/24/19 14:55 Freq: Status: Active Protocol: Document 01/23/19 16:56 AW (Rec: 01/24/19 15:52 AW [id number]) OP-PT Balance Assessment Sitting Balance Static Sitting Balance Ability Good Dynamic Sitting Balance Ability Good Standing Balance Static Standing Balance Ability Fair Dynamic Standing Balance Ability Fair Device Used none Standing Balance Comments single-leg stance impaired bilaterally Balance Tests Single Limb Standing Single Limb- Right 1 second Single Limb- Left 4 seconds Gamboa Fall Scale Copyright Permission PT-OP-F Manual Assessment Start: 01/24/19 14:55 Freq: Status: Active Protocol: Document 01/23/19 16:56 AW (Rec: 01/24/19 15:52 AW [id number]) Manual Assessments Joint Mobility Assessment Joint Mobility Assessment R knee with obvious Delgado's cyst in popliteal space. No restriction in tibiofemoral joint mobility. Other Manual Assessments Other Manual Assessments Point tender at medial knee ( pes anserinus region) and palpable Delgado's cyst in popliteal space PT-OP-G Mobility & Gait Start: 01/24/19 14:55 Freq: Status: Active Protocol: Document 01/23/19 16:56 AW (Rec: 01/24/19 15:52 AW [id number]) OP Gait Assessment Comments Gait Comments Pt ambulates with lateral lean to right side, decreased step length, decreased foot clearance bilaterally. No assistive device PT-OP-H Neuro Start: 01/24/19 14:55 Freq: Status: Active Protocol: Document 01/23/19 16:56 AW (Rec: 01/24/19 15:52 AW [id number]) Sensation Evaluation Gross Sensation Gross Sensation WNL PT-OP-J Posture/Palpation/Skin Start: 01/24/19 14:55 Freq: Status: Active Protocol: Document 01/23/19 16:56 AW (Rec: 01/24/19 15:52 AW [id number]) Posture Evaluation Position Standing Knee Posture (L) Genu Valgus,(R) Genu Valgus Patellar Posture (L) Neutral,(R) Neutral Ankle/Foot Posture (L) Pronated,(R) Pronated,(L) Calcaneal Eversion,(R) Calcaneal Eversion Foot Arch (L) No Arch,(R) No Arch Sitting Foot Arch (L) No Arch,(R) No Arch Palpation Assessment Location One Palpation Location R knee Palpation Findings Muscle Guarding,Tenderness Palpation Details hamstrings guarding, tenderness at pes anserinus region and posterior knee PT-OP-K Range of Motion Start: 01/24/19 14:55 Freq: Status: Active Protocol: Document 01/23/19 16:56 AW (Rec: 01/24/19 15:52 AW [id number]) Hip Goniometric Range of Motion Hip ROM Limitations Comments Hip flexion: R 105 L110 ER limited bilaterally Knee Goniometric Range of Motion Knee ROM Limitations Knee ROM Limitations Soft Tissue Tightness,Pain Comments Knee flexion: R 120 L 125 Knee extension - lacking 5 degrees bilaterally PT-OP-L Special Tests Start: 01/24/19 14:55 Freq: Status: Active Protocol: Document 01/23/19 16:56 AW (Rec: 01/24/19 15:52 AW [id number]) Special Tests Hip Special Tests Scour Test Test Results negative bilaterally Knee Special Tests Ramon Test Results positive Comments positive bilaterally for rectus femoris tightness; positive bilaterally for ITB/ TFL tightness Narayan's Test Test Results positive left, negative right Comments positive for ITB/TFL tightness left side only Thessaly Test 5 Degrees Test Results negative left; positive right Comments provoked pain in right knee Shadi's Test Results negative bilaterally PT-OP-M Strength Start: 01/24/19 14:55 Freq: Status: Active Protocol: Document 01/23/19 16:56 AW (Rec: 01/24/19 15:52 AW [id number]) Hip Strength Hip Manual Muscle Testing Right Flexion (L2) 4- Good- Extension (S1) 3+ Fair+ Abduction 3+ Fair+ External Rotation 4 Good Internal Rotation 4 Good Comments extension tested in prone Left Flexion (L2) 4- Good- Extension (S1) 3+ Fair+ Abduction 3+ Fair+ External Rotation 4 Good Internal Rotation 4 Good Comments extension tested in prone Knee Strength Knee Manual Muscle Testing Right Flexion (S2) 4- Good- Extension (L3) 4 Good Left Flexion (S2) 4 Good Extension (L3) 4+ Good+ PT-OP-Q Treatments Start: 01/24/19 14:55 Freq: Status: Active Protocol: Document 03/06/19 17:18 AW (Rec: 03/06/19 17:27 AW [email or web address]) Cardio Equipment Recumbent Elliptical (Patient Feed) Duration (Minutes) 5 Resistance 4 Seat Position 8 Therapeutic Exercises Supine Exercises 5 Supine Exercise Name bridge with adduction Side bilateral Equipment Used green ball Reps/Minutes 2x12 reps 4 Supine Exercise Name hamstring stretch Side right Resistance manual Reps/Minutes 2 minutes Comments contract/relax 2 Supine Exercise Name hip flexor march Side right Reps/Minutes 10 reps Comments with leg hanging over edge of mat, pt marches leg up to mat 1 Supine Exercise Name hip flexor stretch Side right Resistance manual Reps/Minutes 2 minutes Comments ramon test position Sitting Exercises 1 Sitting Exercise Name sit to stand Side bilateral Reps/Minutes 2x10 reps Comments from 17 mat, no UE support Standing Exercises 15 Standing Exercise Name japanese ball wall squat Side bilateral Equipment Used 45 cm ball Reps/Minutes 2x10 reps Comments cues for feet out, avoid knees past toes 14 Standing Exercise Name grapevine Side bilateral Equipment Used rail for support Reps/Minutes 12 feet x 4 6 Standing Exercise Name Eccentric step down Side right Resistance body wt Equipment Used 4 step Reps/Minutes 2x10 Comments not allowing knees over toes, heel press with glut activation 5 Standing Exercise Name heel raises Side bilateral Equipment Used 4 step Reps/Minutes 2x15 reps Manual Therapy Treatment Soft Tissue Mobilization 3 Body Location hamstring insertion, medial calf Mobilization Type Myofascial Release,Strumming, Trigger Point Release Intensity/Depth Moderate Body Position Sidelying Joint Mobilizations 2 Joint patellar glides Direction superior, inferior, medial, lateral Grade II Body Position Supine Reps/Duration 12 minutes Self-Care/Home Management Treatment Education Patient Education Home Exercise Program Other Education 1 - TKE with level 1 band 2 - gastroc/soleus stretch 3 - resisted side-stepping with level 2 band 4 - seated hamstring stretch 5 - step-ups 6 - standing quad stretch PT-OP-T Assessment and Plan Start: 01/24/19 14:55 Freq: Status: Active Protocol: Document 03/06/19 17:18 AW (Rec: 03/06/19 17:27 AW [email or web address]) Physical Therapy Assessment Goals Four Impairment 2-minute walk - 315.6 feet. Norm for older adults is 493 feet. Short Term Goal (STG) Pt will walk 375 feet on 2MW for increased activity tolerance 02/22/19: MET - Pt walked 410 feet on 2MWT. STG Duration 02/13/19 Button Riveter Goal (LTG) Pt will walk 425 feet on 2MW for increased activity tolerance LTG Duration 03/20/19 Three Impairment Pt scores 33/80 on LEFS Short Term Goal (STG) Pt will score 42/80 or better for improved daily function 02/27/19: MET - Pt scored 59 on LEFS. Two items were left blank. Percentage score - 82%. STG Duration 02/13/19 Mcc Goal (LTG) Pt will score 48/80 or better for improved daily function LTG Duration 03/20/19 Two Impairment Pt unable to lie flat for restful sleep without increased pain Short Term Goal (STG) Pt will tolerate lying with knee in full extension for 10 minutes without increased pain 02/27/19: NOT ASSESSED: Pt reports she typically uses a pillow under her knee when lying flat at this time, so can not report tolerance for lying flat. STG Duration 02/13/19 Mcc Goal (LTG) Pt will tolerate lying with knee in full extension at least one hour without increased pain LTG Duration 03/20/19 One Impairment Pt without HEP Short Term Goal (STG) Pt will be independent with HEP. 02/22/19: MET STG Duration 02/13/19 Button Riveter Goal (LTG) Pt will be independent with maintenance HEP LTG Duration 03/20/19 Progress Towards Goals Progress Towards Goals Progressing Toward Goals,Slow Progress due to Activity Tolerance Assessment Summary Assessment Pt continues to walk with right lateral lean in right stance. She has improved in CKC knee extension. Introduced weightbearing with minimal tibial torsion today. Pt tolerated all well. Physical Therapy Plan Frequency and Duration Frequency of Treatment 1-2x/week Duration of Treatment 8 weeks Plan of Care Start Date 01/23/19 Plan of Care End Date 03/20/19 Therapeutic Interventions Therapeutic Interventions Balance Training,Gait Training ,Home Exercise Program,Joint Mobilizations,Manual Therapy, Neuromuscular Re-education, Orthotic/Prosthetic Management ,Patient/Caregiver Education, Self-Care/Home Management,Soft Tissue Mobilization,Taping, Therapeutic Activities, Therapeutic Exercises Next Visit Focus/Plan Next Note Type Treatment Note Next Visit Plan Continue with CKC knee strengthening, single leg balance, global hip strengthening. Initiate gait training with emphasis on RLE weightbearing
--- NOTE | 2019-03-08 16:32 | PT.OTN ---
Current Diagnoses Pain in right knee (03/08/19) Physical Therapy Treatment Note PT-OP-A Visit Information Start: 01/24/19 14:55 Freq: Status: Active Protocol: Document 03/08/19 16:18 AW (Rec: 03/08/19 16:32 AW [email or web address]) Out-Patient Physical Therapy Visit Information Visit Information Visit Type Treatment Note Visit Start Time 13:45 Visit Stop Time 14:30 Total Visit Minutes 45 Visit Number 11 Number of SEXTON HELPER Visits 0 Evaluation Information Evaluation Date 01/23/19 PT-OP-B Current Condition Start: 01/24/19 14:55 Freq: Status: Active Protocol: Document 01/23/19 16:56 AW (Rec: 01/24/19 15:52 AW [id number]) Current Condition History of Current Condition Onset Date 01/01/19 Current Complaints R posterior and medial knee pain History of Current Condition Pt presents with painful right knee since early January when she was getting out of her car, caught her right foot , and twisted her knee. Some time after that, she was ascending stairs and accidentally led with her right leg at which point she felt her right knee collapsed and she was in excruciating pain. She had MRI on 01/13/19 ( see below for details). In the mornings, her knee feels stiff. She noted her pain is worst at night after a busy day and is exacerbated further by trying to lie with the knee in full extension. She is limited in her ambulation distance now due to pain which she characterizes as a burning sensation in her posterior and medial knee. She reports pain is waking her from sleep several times per night. Ice has been helpful, but nothing else improves her pain. Prior Treatments and Tests Pt was previously treated at this clinic for L posterior knee pain, discharged without completing plan of care in August 2018. MRI 01/13/19: Medial meniscal tear involving posterior horn with partial extrusion. Truncation of the free margin of the body lateral meniscus. Degenerative joint disease as above. Large Delgado's cyst. Future Testing and Treatments Planned None identified Treatment Goals Patient/Caregiver Goals Pt would like to have an appropriate home exercise program and be able to ambulate with less pain. 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 Current Functional Impairments (Reported) Functional Limitations- Mobility/Gait Limited in ambulation distance and stairs navigation due to pain PT-OP-C Subjective Start: 01/24/19 14:55 Freq: Status: Active Protocol: Document 03/08/19 16:18 AW (Rec: 03/08/19 16:32 AW [email or web address]) OP-PT Subjective Patient Comments Patient Comments Pt has been practicing stairs at home Patient Reported Progress Same PT-OP-D Balance Start: 01/24/19 14:55 Freq: Status: Active Protocol: Document 01/23/19 16:56 AW (Rec: 01/24/19 15:52 AW [id number]) OP-PT Balance Assessment Sitting Balance Static Sitting Balance Ability Good Dynamic Sitting Balance Ability Good Standing Balance Static Standing Balance Ability Fair Dynamic Standing Balance Ability Fair Device Used none Standing Balance Comments single-leg stance impaired bilaterally Balance Tests Single Limb Standing Single Limb- Right 1 second Single Limb- Left 4 seconds Gamboa Fall Scale Copyright Permission PT-OP-F Manual Assessment Start: 01/24/19 14:55 Freq: Status: Active Protocol: Document 01/23/19 16:56 AW (Rec: 01/24/19 15:52 AW [id number]) Manual Assessments Joint Mobility Assessment Joint Mobility Assessment R knee with obvious Delgado's cyst in popliteal space. No restriction in tibiofemoral joint mobility. Other Manual Assessments Other Manual Assessments Point tender at medial knee ( pes anserinus region) and palpable Delgado's cyst in popliteal space PT-OP-G Mobility & Gait Start: 01/24/19 14:55 Freq: Status: Active Protocol: Document 01/23/19 16:56 AW (Rec: 01/24/19 15:52 AW [id number]) OP Gait Assessment Comments Gait Comments Pt ambulates with lateral lean to right side, decreased step length, decreased foot clearance bilaterally. No assistive device PT-OP-H Neuro Start: 01/24/19 14:55 Freq: Status: Active Protocol: Document 01/23/19 16:56 AW (Rec: 01/24/19 15:52 AW [id number]) Sensation Evaluation Gross Sensation Gross Sensation WNL PT-OP-J Posture/Palpation/Skin Start: 01/24/19 14:55 Freq: Status: Active Protocol: Document 01/23/19 16:56 AW (Rec: 01/24/19 15:52 AW [id number]) Posture Evaluation Position Standing Knee Posture (L) Genu Valgus,(R) Genu Valgus Patellar Posture (L) Neutral,(R) Neutral Ankle/Foot Posture (L) Pronated,(R) Pronated,(L) Calcaneal Eversion,(R) Calcaneal Eversion Foot Arch (L) No Arch,(R) No Arch Sitting Foot Arch (L) No Arch,(R) No Arch Palpation Assessment Location One Palpation Location R knee Palpation Findings Muscle Guarding,Tenderness Palpation Details hamstrings guarding, tenderness at pes anserinus region and posterior knee PT-OP-K Range of Motion Start: 01/24/19 14:55 Freq: Status: Active Protocol: Document 01/23/19 16:56 AW (Rec: 01/24/19 15:52 AW [id number]) Hip Goniometric Range of Motion Hip ROM Limitations Comments Hip flexion: R 105 L110 ER limited bilaterally Knee Goniometric Range of Motion Knee ROM Limitations Knee ROM Limitations Soft Tissue Tightness,Pain Comments Knee flexion: R 120 L 125 Knee extension - lacking 5 degrees bilaterally PT-OP-L Special Tests Start: 01/24/19 14:55 Freq: Status: Active Protocol: Document 01/23/19 16:56 AW (Rec: 01/24/19 15:52 AW [id number]) Special Tests Hip Special Tests Scour Test Test Results negative bilaterally Knee Special Tests Ramon Test Results positive Comments positive bilaterally for rectus femoris tightness; positive bilaterally for ITB/ TFL tightness Narayan's Test Test Results positive left, negative right Comments positive for ITB/TFL tightness left side only Thessaly Test 5 Degrees Test Results negative left; positive right Comments provoked pain in right knee Shadi's Test Results negative bilaterally PT-OP-M Strength Start: 01/24/19 14:55 Freq: Status: Active Protocol: Document 01/23/19 16:56 AW (Rec: 01/24/19 15:52 AW [id number]) Hip Strength Hip Manual Muscle Testing Right Flexion (L2) 4- Good- Extension (S1) 3+ Fair+ Abduction 3+ Fair+ External Rotation 4 Good Internal Rotation 4 Good Comments extension tested in prone Left Flexion (L2) 4- Good- Extension (S1) 3+ Fair+ Abduction 3+ Fair+ External Rotation 4 Good Internal Rotation 4 Good Comments extension tested in prone Knee Strength Knee Manual Muscle Testing Right Flexion (S2) 4- Good- Extension (L3) 4 Good Left Flexion (S2) 4 Good Extension (L3) 4+ Good+ PT-OP-Q Treatments Start: 01/24/19 14:55 Freq: Status: Active Protocol: Document 03/08/19 16:18 AW (Rec: 03/08/19 16:32 AW [email or web address]) Cardio Equipment Recumbent Elliptical (Biodex) Duration (Minutes) 5 Resistance 5 Seat Position 8 Gym Equipment Shuttle Balance 1 Details EO, EC, narrow stance, mini squats Reps/Duration 5 minutes Comments for improved hip stability and equal weightbearing Therapeutic Exercises Standing Exercises bosu step up Standing Exercise Name bosu step up Side right Reps/Minutes 2x12 reps Comments hands on stair rail for support 15 Standing Exercise Name solomon islander ball wall squat Side bilateral Equipment Used 45 cm ball Reps/Minutes 2x10 reps Comments cues for feet out, avoid knees past toes 14 Standing Exercise Name grapevine Side bilateral Equipment Used rail for support Reps/Minutes 12 feet x 4 11 Standing Exercise Name hip hiking Side bilateral Equipment Used 6 step Reps/Minutes 2x10 reps Comments improved tolerance to WB knee extension 6 Standing Exercise Name Eccentric step down Side right Resistance body wt Equipment Used 4 step Reps/Minutes 2x10 Comments not allowing knees over toes, heel press with glut activation 5 Standing Exercise Name heel raises Side bilateral Equipment Used 4 step Reps/Minutes 2x15 reps 3 Standing Exercise Name lateral step up Side bilateral Equipment Used 4 step, 6 step Reps/Minutes 2x10 reps Comments pt tolerated increased step ht 2 Standing Exercise Name JAKUB stretch Side bilateral Reps/Minutes 2 minutes gastroc, 2 minutes soleus Comments cues to keep hips forward and stretch statically Gait Training Gait Activity 1 Description hurdles Device Used hurdles in // bars Level of Assistance SBA Surface firm Distance/Duration 10 min Treatment Focus RLE heel strike Comments cues for RLE heel strike, forward knee movement to avoid circumduction RLE, and RLE weightbearing Self-Care/Home Management Treatment Education Patient Education Home Exercise Program Other Education 1 - TKE with level 1 band 2 - gastroc/soleus stretch 3 - resisted side-stepping with level 2 band 4 - seated hamstring stretch 5 - step-ups 6 - standing quad stretch PT-OP-T Assessment and Plan Start: 01/24/19 14:55 Freq: Status: Active Protocol: Document 03/08/19 16:18 AW (Rec: 03/08/19 16:32 AW [email or web address]) Physical Therapy Assessment Goals Four Impairment 2-minute walk - 315.6 feet. Norm for older adults is 493 feet. Short Term Goal (STG) Pt will walk 375 feet on 2MW for increased activity tolerance 02/22/19: MET - Pt walked 410 feet on 2MWT. STG Duration 02/13/19 Fpc Goal (LTG) Pt will walk 425 feet on 2MW for increased activity tolerance LTG Duration 03/20/19 Three Impairment Pt scores 33/80 on LEFS Short Term Goal (STG) Pt will score 42/80 or better for improved daily function 02/27/19: MET - Pt scored 59 on LEFS. Two items were left blank. Percentage score - 82%. STG Duration 02/13/19 Fpc Goal (LTG) Pt will score 48/80 or better for improved daily function LTG Duration 03/20/19 Two Impairment Pt unable to lie flat for restful sleep without increased pain Short Term Goal (STG) Pt will tolerate lying with knee in full extension for 10 minutes without increased pain 02/27/19: NOT ASSESSED: Pt reports she typically uses a pillow under her knee when lying flat at this time, so can not report tolerance for lying flat. STG Duration 02/13/19 Fpc Goal (LTG) Pt will tolerate lying with knee in full extension at least one hour without increased pain LTG Duration 03/20/19 One Impairment Pt without HEP Short Term Goal (STG) Pt will be independent with HEP. 02/22/19: MET STG Duration 02/13/19 Bottle Booth Attendant Goal (LTG) Pt will be independent with maintenance HEP LTG Duration 03/20/19 Progress Towards Goals Progress Towards Goals Progressing Toward Goals Assessment Summary Assessment Pt educated on gait mechanics and visual feedback given on pt's lateral lean in RLE stance. Pt responded well to gait training and to increased challenge in LE strengthening today. Physical Therapy Plan Frequency and Duration Frequency of Treatment 1-2x/week Duration of Treatment 8 weeks Plan of Care Start Date 01/23/19 Plan of Care End Date 03/20/19 Therapeutic Interventions Therapeutic Interventions Balance Training,Gait Training ,Home Exercise Program,Joint Mobilizations,Manual Therapy, Neuromuscular Re-education, Orthotic/Prosthetic Management ,Patient/Caregiver Education, Self-Care/Home Management,Soft Tissue Mobilization,Taping, Therapeutic Activities, Therapeutic Exercises Next Visit Focus/Plan Next Note Type Treatment Note Next Visit Plan Continue with CKC knee strengthening, single leg balance, global hip strengthening. Continue gait training with emphasis on RLE weightbearing. Assess pt progress and possible need to extend plan of care.
--- NOTE | 2019-03-13 17:25 | PT.OTN ---
Current Diagnoses Pain in right knee (03/13/19) Physical Therapy Treatment Note PT-OP-A Visit Information Start: 01/24/19 14:55 Freq: Status: Active Protocol: Document 03/13/19 17:14 AW (Rec: 03/14/19 17:25 AW [id number]) Out-Patient Physical Therapy Visit Information Visit Information Visit Type Treatment Note Visit Start Time 13:45 Visit Stop Time 14:30 Total Visit Minutes 45 Visit Number 12 Number of CROP GRAIN OR LIVESTOCK FARM MANAGER Visits 0 Evaluation Information Evaluation Date 01/23/19 PT-OP-B Current Condition Start: 01/24/19 14:55 Freq: Status: Active Protocol: Document 01/23/19 16:56 AW (Rec: 01/24/19 15:52 AW [id number]) Current Condition History of Current Condition Onset Date 01/01/19 Current Complaints R posterior and medial knee pain History of Current Condition Pt presents with painful right knee since early January when she was getting out of her car, caught her right foot , and twisted her knee. Some time after that, she was ascending stairs and accidentally led with her right leg at which point she felt her right knee collapsed and she was in excruciating pain. She had MRI on 01/13/19 ( see below for details). In the mornings, her knee feels stiff. She noted her pain is worst at night after a busy day and is exacerbated further by trying to lie with the knee in full extension. She is limited in her ambulation distance now due to pain which she characterizes as a burning sensation in her posterior and medial knee. She reports pain is waking her from sleep several times per night. Ice has been helpful, but nothing else improves her pain. Prior Treatments and Tests Pt was previously treated at this clinic for L posterior knee pain, discharged without completing plan of care in August 2018. MRI 01/13/19: Medial meniscal tear involving posterior horn with partial extrusion. Truncation of the free margin of the body lateral meniscus. Degenerative joint disease as above. Large Delgado's cyst. Future Testing and Treatments Planned None identified Treatment Goals Patient/Caregiver Goals Pt would like to have an appropriate home exercise program and be able to ambulate with less pain. 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 She is particularly happy to be able to descend stairs more easily. PT-OP-D Balance Start: 01/24/19 14:55 Freq: Status: Active Protocol: Document 01/23/19 16:56 AW (Rec: 01/24/19 15:52 AW [id number]) OP-PT Balance Assessment Sitting Balance Static Sitting Balance Ability Good Dynamic Sitting Balance Ability Good Standing Balance Static Standing Balance Ability Fair Dynamic Standing Balance Ability Fair Device Used none Standing Balance Comments single-leg stance impaired bilaterally Balance Tests Single Limb Standing Single Limb- Right 1 second Single Limb- Left 4 seconds Gamboa Fall Scale Copyright Permission PT-OP-F Manual Assessment Start: 01/24/19 14:55 Freq: Status: Active Protocol: Document 01/23/19 16:56 AW (Rec: 01/24/19 15:52 AW [id number]) Manual Assessments Joint Mobility Assessment Joint Mobility Assessment R knee with obvious Delgado's cyst in popliteal space. No restriction in tibiofemoral joint mobility. Other Manual Assessments Other Manual Assessments Point tender at medial knee ( pes anserinus region) and palpable Delgado's cyst in popliteal space PT-OP-G Mobility & Gait Start: 01/24/19 14:55 Freq: Status: Active Protocol: Document 01/23/19 16:56 AW (Rec: 01/24/19 15:52 AW [id number]) OP Gait Assessment Comments Gait Comments Pt ambulates with lateral lean to right side, decreased step length, decreased foot clearance bilaterally. No assistive device PT-OP-H Neuro Start: 01/24/19 14:55 Freq: Status: Active Protocol: Document 01/23/19 16:56 AW (Rec: 01/24/19 15:52 AW [id number]) Sensation Evaluation Gross Sensation Gross Sensation WNL PT-OP-J Posture/Palpation/Skin Start: 01/24/19 14:55 Freq: Status: Active Protocol: Document 01/23/19 16:56 AW (Rec: 01/24/19 15:52 AW [id number]) Posture Evaluation Position Standing Knee Posture (L) Genu Valgus,(R) Genu Valgus Patellar Posture (L) Neutral,(R) Neutral Ankle/Foot Posture (L) Pronated,(R) Pronated,(L) Calcaneal Eversion,(R) Calcaneal Eversion Foot Arch (L) No Arch,(R) No Arch Sitting Foot Arch (L) No Arch,(R) No Arch Palpation Assessment Location One Palpation Location R knee Palpation Findings Muscle Guarding,Tenderness Palpation Details hamstrings guarding, tenderness at pes anserinus region and posterior knee PT-OP-K Range of Motion Start: 01/24/19 14:55 Freq: Status: Active Protocol: Document 01/23/19 16:56 AW (Rec: 01/24/19 15:52 AW [id number]) Hip Goniometric Range of Motion Hip ROM Limitations Comments Hip flexion: R 105 L110 ER limited bilaterally Knee Goniometric Range of Motion Knee ROM Limitations Knee ROM Limitations Soft Tissue Tightness,Pain Comments Knee flexion: R 120 L 125 Knee extension - lacking 5 degrees bilaterally PT-OP-L Special Tests Start: 01/24/19 14:55 Freq: Status: Active Protocol: Document 01/23/19 16:56 AW (Rec: 01/24/19 15:52 AW [id number]) Special Tests Hip Special Tests Scour Test Test Results negative bilaterally Knee Special Tests Ramon Test Results positive Comments positive bilaterally for rectus femoris tightness; positive bilaterally for ITB/ TFL tightness Narayan's Test Test Results positive left, negative right Comments positive for ITB/TFL tightness left side only Thessaly Test 5 Degrees Test Results negative left; positive right Comments provoked pain in right knee Shadi's Test Results negative bilaterally PT-OP-M Strength Start: 01/24/19 14:55 Freq: Status: Active Protocol: Document 01/23/19 16:56 AW (Rec: 01/24/19 15:52 AW [id number]) Hip Strength Hip Manual Muscle Testing Right Flexion (L2) 4- Good- Extension (S1) 3+ Fair+ Abduction 3+ Fair+ External Rotation 4 Good Internal Rotation 4 Good Comments extension tested in prone Left Flexion (L2) 4- Good- Extension (S1) 3+ Fair+ Abduction 3+ Fair+ External Rotation 4 Good Internal Rotation 4 Good Comments extension tested in prone Knee Strength Knee Manual Muscle Testing Right Flexion (S2) 4- Good- Extension (L3) 4 Good Left Flexion (S2) 4 Good Extension (L3) 4+ Good+ PT-OP-Q Treatments Start: 01/24/19 14:55 Freq: Status: Active Protocol: Document 03/13/19 17:14 AW (Rec: 03/14/19 17:25 AW [id number]) Cardio Equipment Recumbent Elliptical (Biodex) Duration (Minutes) 5 Resistance 5 Seat Position 8 Therapeutic Exercises Supine Exercises 4 Supine Exercise Name hamstring stretch Side right Resistance manual Reps/Minutes 2 minutes Comments contract/relax Sitting Exercises 1 Sitting Exercise Name sit to stand Side bilateral Reps/Minutes 2x15 reps Comments from 17 mat, no UE support Standing Exercises 18 Standing Exercise Name hurdles Side bilateral Equipment Used 4 hurdles, mirror for visual feedback Reps/Minutes 10 reps Comments emphasis on RLE weightbearing with upright posture 17 Standing Exercise Name monster walks Side bilateral Resistance green Equipment Used T band Reps/Minutes length of rail x 4 Comments fwd/bwd with diagonal steps 16 Standing Exercise Name single leg stance with 3-way kick Side bilateral Equipment Used 6 step Reps/Minutes 2x10 reps bilat 11 Standing Exercise Name hip hiking Side bilateral Equipment Used 6 step Reps/Minutes 2x10 reps Comments improved tolerance to WB knee extension 6 Standing Exercise Name backward step down Side right Resistance body weight Equipment Used 6 step Reps/Minutes 2x10 reps 5 Standing Exercise Name heel raises Side bilateral Equipment Used 4 step Reps/Minutes 2x15 reps 3 Standing Exercise Name crossover step up Side right Equipment Used 6 step Reps/Minutes 2x10 reps 2 Standing Exercise Name JAKUB stretch Side bilateral Reps/Minutes 2 minutes gastroc, 2 minutes soleus Comments cues to keep hips forward and stretch statically Self-Care/Home Management Treatment Education Patient Education Home Exercise Program Other Education 1 - TKE with level 1 band 2 - gastroc/soleus stretch 3 - resisted side-stepping with level 2 band 4 - seated hamstring stretch 5 - step-ups 6 - standing quad stretch PT-OP-T Assessment and Plan Start: 01/24/19 14:55 Freq: Status: Active Protocol: Document 03/13/19 17:14 AW (Rec: 03/14/19 17:25 AW [id number]) Physical Therapy Assessment Goals Four Impairment 2-minute walk - 315.6 feet. Norm for older adults is 493 feet. Short Term Goal (STG) Pt will walk 375 feet on 2MW for increased activity tolerance 02/22/19: MET - Pt walked 410 feet on 2MWT. STG Duration 02/13/19 Web Design Specialist Goal (LTG) Pt will walk 425 feet on 2MW for increased activity tolerance LTG Duration 03/20/19 Three Impairment Pt scores 33/80 on LEFS Short Term Goal (STG) Pt will score 42/80 or better for improved daily function 02/27/19: MET - Pt scored 59 on LEFS. Two items were left blank. Percentage score - 82%. STG Duration 02/13/19 Web Design Specialist Goal (LTG) Pt will score 48/80 or better for improved daily function LTG Duration 03/20/19 Two Impairment Pt unable to lie flat for restful sleep without increased pain Short Term Goal (STG) Pt will tolerate lying with knee in full extension for 10 minutes without increased pain 02/27/19: NOT ASSESSED: Pt reports she typically uses a pillow under her knee when lying flat at this time, so can not report tolerance for lying flat. STG Duration 02/13/19 Web Design Specialist Goal (LTG) Pt will tolerate lying with knee in full extension at least one hour without increased pain LTG Duration 03/20/19 One Impairment Pt without HEP Short Term Goal (STG) Pt will be independent with HEP. 02/22/19: MET STG Duration 02/13/19 Long-Term Goal (LTG) Pt will be independent with maintenance HEP LTG Duration 03/20/19 Progress Towards Goals Progress Towards Goals Progressing Toward Goals Assessment Summary Assessment Continued to work on visual feedback to address lateral lean in RLE stance. Pt feeling stronger with RLE and more confident descending stairs. Physical Therapy Plan Frequency and Duration Frequency of Treatment 1-2x/week Duration of Treatment 8 weeks Plan of Care Start Date 01/23/19 Plan of Care End Date 03/20/19 Therapeutic Interventions Therapeutic Interventions Balance Training,Gait Training ,Home Exercise Program,Joint Mobilizations,Manual Therapy, Neuromuscular Re-education, Orthotic/Prosthetic Management ,Patient/Caregiver Education, Self-Care/Home Management,Soft Tissue Mobilization,Taping, Therapeutic Activities, Therapeutic Exercises Next Visit Focus/Plan Next Note Type Treatment Note Next Visit Plan Continue with CKC knee strengthening, single leg balance, global hip strengthening. Continue gait training with emphasis on RLE weightbearing. Assess pt progress and possible need to extend plan of care.
--- NOTE | 2019-03-15 15:41 | PT.OTN ---
Current Diagnoses Pain in right knee (03/15/19) Physical Therapy Treatment Note PT-OP-A Visit Information Start: 01/24/19 14:55 Freq: Status: Active Protocol: Document 03/15/19 15:22 AW (Rec: 03/15/19 15:41 AW [id number]) Out-Patient Physical Therapy Visit Information Visit Information Visit Type Treatment Note Visit Start Time 13:45 Visit Stop Time 14:27 Total Visit Minutes 42 Visit Number 13 Number of REAL ESTATE LISTING CONSULTANT Visits 0 Evaluation Information Evaluation Date 01/23/19 PT-OP-B Current Condition Start: 01/24/19 14:55 Freq: Status: Active Protocol: Document 01/23/19 16:56 AW (Rec: 01/24/19 15:52 AW [id number]) Current Condition History of Current Condition Onset Date 01/01/19 Current Complaints R posterior and medial knee pain History of Current Condition Pt presents with painful right knee since early January when she was getting out of her car, caught her right foot , and twisted her knee. Some time after that, she was ascending stairs and accidentally led with her right leg at which point she felt her right knee collapsed and she was in excruciating pain. She had MRI on 01/13/19 ( see below for details). In the mornings, her knee feels stiff. She noted her pain is worst at night after a busy day and is exacerbated further by trying to lie with the knee in full extension. She is limited in her ambulation distance now due to pain which she characterizes as a burning sensation in her posterior and medial knee. She reports pain is waking her from sleep several times per night. Ice has been helpful, but nothing else improves her pain. Prior Treatments and Tests Pt was previously treated at this clinic for L posterior knee pain, discharged without completing plan of care in August 2018. MRI 01/13/19: Medial meniscal tear involving posterior horn with partial extrusion. Truncation of the free margin of the body lateral meniscus. Degenerative joint disease as above. Large Delgado's cyst. Future Testing and Treatments Planned None identified Treatment Goals Patient/Caregiver Goals Pt would like to have an appropriate home exercise program and be able to ambulate with less pain. 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 Functional Impairments (Reported) Functional Limitations- Mobility/Gait Limited in ambulation distance and stairs navigation due to pain PT-OP-C Subjective Start: 01/24/19 14:55 Freq: Status: Active Protocol: Document 03/15/19 15:22 AW (Rec: 03/15/19 15:41 AW [id number]) OP-PT Subjective Patient Comments Patient Comments Pt reports increased pain across the front of both knees while descending stairs Patient Reported Progress Same PT-OP-D Balance Start: 01/24/19 14:55 Freq: Status: Active Protocol: Document 01/23/19 16:56 AW (Rec: 01/24/19 15:52 AW [id number]) OP-PT Balance Assessment Sitting Balance Static Sitting Balance Ability Good Dynamic Sitting Balance Ability Good Standing Balance Static Standing Balance Ability Fair Dynamic Standing Balance Ability Fair Device Used none Standing Balance Comments single-leg stance impaired bilaterally Balance Tests Single Limb Standing Single Limb- Right 1 second Single Limb- Left 4 seconds Gamboa Fall Scale Copyright Permission PT-OP-F Manual Assessment Start: 01/24/19 14:55 Freq: Status: Active Protocol: Document 01/23/19 16:56 AW (Rec: 01/24/19 15:52 AW [id number]) Manual Assessments Joint Mobility Assessment Joint Mobility Assessment R knee with obvious Delgado's cyst in popliteal space. No restriction in tibiofemoral joint mobility. Other Manual Assessments Other Manual Assessments Point tender at medial knee ( pes anserinus region) and palpable Delgado's cyst in popliteal space PT-OP-G Mobility & Gait Start: 01/24/19 14:55 Freq: Status: Active Protocol: Document 01/23/19 16:56 AW (Rec: 01/24/19 15:52 AW [id number]) OP Gait Assessment Comments Gait Comments Pt ambulates with lateral lean to right side, decreased step length, decreased foot clearance bilaterally. No assistive device PT-OP-H Neuro Start: 01/24/19 14:55 Freq: Status: Active Protocol: Document 01/23/19 16:56 AW (Rec: 01/24/19 15:52 AW [id number]) Sensation Evaluation Gross Sensation Gross Sensation WNL PT-OP-J Posture/Palpation/Skin Start: 01/24/19 14:55 Freq: Status: Active Protocol: Document 01/23/19 16:56 AW (Rec: 01/24/19 15:52 AW [id number]) Posture Evaluation Position Standing Knee Posture (L) Genu Valgus,(R) Genu Valgus Patellar Posture (L) Neutral,(R) Neutral Ankle/Foot Posture (L) Pronated,(R) Pronated,(L) Calcaneal Eversion,(R) Calcaneal Eversion Foot Arch (L) No Arch,(R) No Arch Sitting Foot Arch (L) No Arch,(R) No Arch Palpation Assessment Location One Palpation Location R knee Palpation Findings Muscle Guarding,Tenderness Palpation Details hamstrings guarding, tenderness at pes anserinus region and posterior knee PT-OP-K Range of Motion Start: 01/24/19 14:55 Freq: Status: Active Protocol: Document 01/23/19 16:56 AW (Rec: 01/24/19 15:52 AW [id number]) Hip Goniometric Range of Motion Hip ROM Limitations Comments Hip flexion: R 105 L110 ER limited bilaterally Knee Goniometric Range of Motion Knee ROM Limitations Knee ROM Limitations Soft Tissue Tightness,Pain Comments Knee flexion: R 120 L 125 Knee extension - lacking 5 degrees bilaterally PT-OP-L Special Tests Start: 01/24/19 14:55 Freq: Status: Active Protocol: Document 01/23/19 16:56 AW (Rec: 01/24/19 15:52 AW [id number]) Special Tests Hip Special Tests Scour Test Test Results negative bilaterally Knee Special Tests Ramon Test Results positive Comments positive bilaterally for rectus femoris tightness; positive bilaterally for ITB/ TFL tightness Narayan's Test Test Results positive left, negative right Comments positive for ITB/TFL tightness left side only Thessaly Test 5 Degrees Test Results negative left; positive right Comments provoked pain in right knee Shadi's Test Results negative bilaterally PT-OP-M Strength Start: 01/24/19 14:55 Freq: Status: Active Protocol: Document 01/23/19 16:56 AW (Rec: 01/24/19 15:52 AW [id number]) Hip Strength Hip Manual Muscle Testing Right Flexion (L2) 4- Good- Extension (S1) 3+ Fair+ Abduction 3+ Fair+ External Rotation 4 Good Internal Rotation 4 Good Comments extension tested in prone Left Flexion (L2) 4- Good- Extension (S1) 3+ Fair+ Abduction 3+ Fair+ External Rotation 4 Good Internal Rotation 4 Good Comments extension tested in prone Knee Strength Knee Manual Muscle Testing Right Flexion (S2) 4- Good- Extension (L3) 4 Good Left Flexion (S2) 4 Good Extension (L3) 4+ Good+ PT-OP-Q Treatments Start: 01/24/19 14:55 Freq: Status: Active Protocol: Document 03/15/19 15:22 AW (Rec: 03/15/19 15:41 AW [id number]) Cardio Equipment Recumbent Elliptical (BiodSatarii) Duration (Minutes) 5 Resistance 5 Seat Position 7 Therapeutic Exercises Supine Exercises 4 Supine Exercise Name hamstring stretch Side right Resistance manual Reps/Minutes 2 minutes Comments contract/relax Sitting Exercises 5 Sitting Exercise Name eccentric stand to sit Reps/Minutes 15 reps Comments to 17 mat; no UE support 1 Sitting Exercise Name sit to stand Side bilateral Equipment Used 15 reps Reps/Minutes 2x15 reps Comments from 17 mat, no UE support; Standing Exercises 16 Standing Exercise Name single leg stance with 3-way kick Side bilateral Equipment Used 6 step Reps/Minutes 2x10 reps bilat 11 Standing Exercise Name hip hiking Side bilateral Equipment Used 6 step Reps/Minutes 2x10 reps Comments improved tolerance to WB knee extension 6 Standing Exercise Name backward step down Side right Resistance body weight Equipment Used 6 step Reps/Minutes 2x10 reps Comments with BUE support 5 Standing Exercise Name heel raises Side bilateral Equipment Used 4 step Reps/Minutes 2x15 reps Comments with BUE support 4 Standing Exercise Name resisted side-stepping Side bilateral Equipment Used blue loop Reps/Minutes 20' x4 2 Standing Exercise Name JAKUB stretch Side bilateral Reps/Minutes 2 minutes gastroc, 2 minutes soleus Comments cues to keep hips forward and stretch statically 1 Standing Exercise Name TKE Side bilateral Resistance level band Reps/Minutes 2x15 reps Comments vc's for upright posture Self-Care/Home Management Treatment Education Patient Education Home Exercise Program Other Education 1 - TKE with level 1 band 2 - gastroc/soleus stretch 3 - resisted side-stepping with level 2 band 4 - seated hamstring stretch 5 - step-ups 6 - standing quad stretch PT-OP-T Assessment and Plan Start: 01/24/19 14:55 Freq: Status: Active Protocol: Document 03/15/19 15:22 AW (Rec: 03/15/19 15:41 AW [id number]) Physical Therapy Assessment Goals Four Impairment 2-minute walk - 315.6 feet. Norm for older adults is 493 feet. Short Term Goal (STG) Pt will walk 375 feet on 2MW for increased activity tolerance 02/22/19: MET - Pt walked 410 feet on 2MWT. STG Duration 02/13/19 Correction Goal (LTG) Pt will walk 425 feet on 2MW for increased activity tolerance 03/15/19: MET - Pt walked 435 feet on 2MWT LTG Duration 03/20/19 Three Impairment Pt scores 33/80 on LEFS Short Term Goal (STG) Pt will score 42/80 or better for improved daily function 02/27/19: MET - Pt scored 59 on LEFS. Two items were left blank. Percentage score - 82%. STG Duration 02/13/19 Correction Goal (LTG) Pt will score 48/80 or better for improved daily function LTG Duration 03/20/19 Two Impairment Pt unable to lie flat for restful sleep without increased pain Short Term Goal (STG) Pt will tolerate lying with knee in full extension for 10 minutes without increased pain 02/27/19: NOT ASSESSED: Pt reports she typically uses a pillow under her knee when lying flat at this time, so can not report tolerance for lying flat. STG Duration 02/13/19 Hairspring Staker Goal (LTG) Pt will tolerate lying with knee in full extension at least one hour without increased pain LTG Duration 03/20/19 One Impairment Pt without HEP Short Term Goal (STG) Pt will be independent with HEP. 02/22/19: MET STG Duration 02/13/19 Correction Goal (LTG) Pt will be independent with maintenance HEP LTG Duration 03/20/19 Progress Towards Goals Progress Towards Goals Progressing Toward Goals Assessment Summary Assessment Continued to progress CKC knee strengthening and global hip strengthening to address lateral lean in RLE stance. Pt progressing toward goals but may require extension of current plan of care in order to optimize function. Physical Therapy Plan Frequency and Duration Frequency of Treatment 1-2x/week Duration of Treatment 8 weeks Plan of Care Start Date 01/23/19 Plan of Care End Date 03/20/19 Therapeutic Interventions Therapeutic Interventions Balance Training,Gait Training ,Home Exercise Program,Joint Mobilizations,Manual Therapy, Neuromuscular Re-education, Orthotic/Prosthetic Management ,Patient/Caregiver Education, Self-Care/Home Management,Soft Tissue Mobilization,Taping, Therapeutic Activities, Therapeutic Exercises Next Visit Focus/Plan Next Note Type Treatment Note Next Visit Plan Continue with CKC knee strengthening, single leg balance, global hip strengthening. Continue gait training with emphasis on RLE weightbearing. Assess pt progress and possible need to extend plan of care.
--- NOTE | 2019-03-20 17:19 | PT.OPDS ---
Current Diagnoses Pain in right knee (03/20/19) Visit Care Team Role Provider Type Yolette Keenan PA-C Attending Provider Physician Primary Care Provider Specialty: Internal Medicine Address: [address] [place] [address], [id number] Email: [email or web address] Visit Number Visit Number [id number] Discharge Summary PT-OP-B Current Condition Start: 01/24/19 14:55 Freq: Status: Active Protocol: Document 01/23/19 16:56 AW (Rec: 01/24/19 15:52 AW [id number]) Current Condition History of Current Condition Onset Date 01/01/19 Current Complaints R posterior and medial knee pain History of Current Condition Pt presents with painful right knee since early January when she was getting out of her car, caught her right foot , and twisted her knee. Some time after that, she was ascending stairs and accidentally led with her right leg at which point she felt her right knee collapsed and she was in excruciating pain. She had MRI on 01/13/19 ( see below for details). In the mornings, her knee feels stiff. She noted her pain is worst at night after a busy day and is exacerbated further by trying to lie with the knee in full extension. She is limited in her ambulation distance now due to pain which she characterizes as a burning sensation in her posterior and medial knee. She reports pain is waking her from sleep several times per night. Ice has been helpful, but nothing else improves her pain. Prior Treatments and Tests Pt was previously treated at this clinic for L posterior knee pain, discharged without completing plan of care in August 2018. MRI 01/13/19: Medial meniscal tear involving posterior horn with partial extrusion. Truncation of the free margin of the body lateral meniscus. Degenerative joint disease as above. Large Delgado's cyst. Future Testing and Treatments Planned None identified Treatment Goals Patient/Caregiver Goals Pt would like to have an appropriate home exercise program and be able to ambulate with less pain. 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 Current Functional Impairments (Reported) Functional Limitations- Mobility/Gait Limited in ambulation distance and stairs navigation due to pain PT-OP-C Subjective Start: 01/24/19 14:55 Freq: Status: Active Protocol: Document 03/20/19 17:08 AW (Rec: 03/20/19 17:19 AW [id number]) OP-PT Subjective Patient Comments Patient Comments Pt reports overall improvement in medial and posterior knee pain Patient Reported Progress Improving Patient Questionnaires Lower Extremity Functional Scale LEFS Score 52/60 LEFS Impairment 1 to 19% Impaired (Score 63-79 ) PT-OP-D Balance Start: 01/24/19 14:55 Freq: Status: Active Protocol: Document 01/23/19 16:56 AW (Rec: 01/24/19 15:52 AW [id number]) OP-PT Balance Assessment Sitting Balance Static Sitting Balance Ability Good Dynamic Sitting Balance Ability Good Standing Balance Static Standing Balance Ability Fair Dynamic Standing Balance Ability Fair Device Used none Standing Balance Comments single-leg stance impaired bilaterally Balance Tests Single Limb Standing Single Limb- Right 1 second Single Limb- Left 4 seconds Gamboa Fall Scale Copyright Permission PT-OP-F Manual Assessment Start: 01/24/19 14:55 Freq: Status: Active Protocol: Document 01/23/19 16:56 AW (Rec: 01/24/19 15:52 AW [id number]) Manual Assessments Joint Mobility Assessment Joint Mobility Assessment R knee with obvious Delgado's cyst in popliteal space. No restriction in tibiofemoral joint mobility. Other Manual Assessments Other Manual Assessments Point tender at medial knee ( pes anserinus region) and palpable Delgado's cyst in popliteal space PT-OP-G Mobility & Gait Start: 01/24/19 14:55 Freq: Status: Active Protocol: Document 01/23/19 16:56 AW (Rec: 01/24/19 15:52 AW [id number]) OP Gait Assessment Comments Gait Comments Pt ambulates with lateral lean to right side, decreased step length, decreased foot clearance bilaterally. No assistive device PT-OP-H Neuro Start: 01/24/19 14:55 Freq: Status: Active Protocol: Document 01/23/19 16:56 AW (Rec: 01/24/19 15:52 AW [id number]) Sensation Evaluation Gross Sensation Gross Sensation WNL PT-OP-J Posture/Palpation/Skin Start: 01/24/19 14:55 Freq: Status: Active Protocol: Document 01/23/19 16:56 AW (Rec: 01/24/19 15:52 AW [id number]) Posture Evaluation Position Standing Knee Posture (L) Genu Valgus,(R) Genu Valgus Patellar Posture (L) Neutral,(R) Neutral Ankle/Foot Posture (L) Pronated,(R) Pronated,(L) Calcaneal Eversion,(R) Calcaneal Eversion Foot Arch (L) No Arch,(R) No Arch Sitting Foot Arch (L) No Arch,(R) No Arch Palpation Assessment Location One Palpation Location R knee Palpation Findings Muscle Guarding,Tenderness Palpation Details hamstrings guarding, tenderness at pes anserinus region and posterior knee PT-OP-K Range of Motion Start: 01/24/19 14:55 Freq: Status: Active Protocol: Document 01/23/19 16:56 AW (Rec: 01/24/19 15:52 AW [id number]) Hip Goniometric Range of Motion Hip ROM Limitations Comments Hip flexion: R 105 L110 ER limited bilaterally Knee Goniometric Range of Motion Knee ROM Limitations Knee ROM Limitations Soft Tissue Tightness,Pain Comments Knee flexion: R 120 L 125 Knee extension - lacking 5 degrees bilaterally PT-OP-L Special Tests Start: 01/24/19 14:55 Freq: Status: Active Protocol: Document 01/23/19 16:56 AW (Rec: 01/24/19 15:52 AW [id number]) Special Tests Hip Special Tests Scour Test Test Results negative bilaterally Knee Special Tests Ramon Test Results positive Comments positive bilaterally for rectus femoris tightness; positive bilaterally for ITB/ TFL tightness Narayan's Test Test Results positive left, negative right Comments positive for ITB/TFL tightness left side only Thessaly Test 5 Degrees Test Results negative left; positive right Comments provoked pain in right knee Shadi's Test Results negative bilaterally PT-OP-M Strength Start: 01/24/19 14:55 Freq: Status: Active Protocol: Document 01/23/19 16:56 AW (Rec: 01/24/19 15:52 AW [id number]) Hip Strength Hip Manual Muscle Testing Right Flexion (L2) 4- Good- Extension (S1) 3+ Fair+ Abduction 3+ Fair+ External Rotation 4 Good Internal Rotation 4 Good Comments extension tested in prone Left Flexion (L2) 4- Good- Extension (S1) 3+ Fair+ Abduction 3+ Fair+ External Rotation 4 Good Internal Rotation 4 Good Comments extension tested in prone Knee Strength Knee Manual Muscle Testing Right Flexion (S2) 4- Good- Extension (L3) 4 Good Left Flexion (S2) 4 Good Extension (L3) 4+ Good+ PT-OP-T Assessment and Plan Start: 01/24/19 14:55 Freq: Status: Active Protocol: Document 03/20/19 17:08 AW (Rec: 03/20/19 17:19 AW [email or web address]) Physical Therapy Assessment Goals Four Impairment 2-minute walk - 315.6 feet. Norm for older adults is 493 feet. Short Term Goal (STG) Pt will walk 375 feet on 2MW for increased activity tolerance 02/22/19: MET - Pt walked 410 feet on 2MWT. STG Duration 02/13/19 Assisted Goal (LTG) Pt will walk 425 feet on 2MW for increased activity tolerance 03/15/19: MET - Pt walked 435 feet on 2MWT LTG Duration 03/20/19 Three Impairment Pt scores 33/80 on LEFS Short Term Goal (STG) Pt will score 42/80 or better for improved daily function 02/27/19: MET - Pt scored 59 on LEFS. Two items were left blank. Percentage score - 82%. STG Duration 02/13/19 Tabber Goal (LTG) Pt will score 48/80 or better for improved daily function 03/20/19: MET - Pt scored 52/ 60 or 87% on LEFS LTG Duration 03/20/19 Two Impairment Pt unable to lie flat for restful sleep without increased pain Short Term Goal (STG) Pt will tolerate lying with knee in full extension for 10 minutes without increased pain 02/27/19: NOT ASSESSED: Pt reports she typically uses a pillow under her knee when lying flat at this time, so can not report tolerance for lying flat. STG Duration 02/13/19 Tabber Goal (LTG) Pt will tolerate lying with knee in full extension at least one hour without increased pain 03/20/19 - Pt reports improved ability to lie flat but is unable to quantify LTG Duration 03/20/19 One Impairment Pt without HEP Short Term Goal (STG) Pt will be independent with HEP. 02/22/19: MET STG Duration 02/13/19 Assisted Goal (LTG) Pt will be independent with maintenance HEP 03/20/19 MET LTG Duration 03/20/19 Progress Towards Goals Progress Towards Goals Goals Met Assessment Summary Assessment Pt has completed 14 sessions of PT with emphasis on therapeutic exercise, manual therapy, and gait training to improve gait mechanics and to address pain symptoms associated with meniscus tear and Delgado's cyst. She tolerated all treatment well and met functional goals of this plan of care. She is appropriate for discharge. Physical Therapy Plan Frequency and Duration Frequency of Treatment 1-2x/week Duration of Treatment 8 weeks Plan of Care Start Date 01/23/19 Plan of Care End Date 03/20/19 Therapeutic Interventions Therapeutic Interventions Balance Training,Gait Training ,Home Exercise Program,Joint Mobilizations,Manual Therapy, Neuromuscular Re-education, Orthotic/Prosthetic Management ,Patient/Caregiver Education, Self-Care/Home Management,Soft Tissue Mobilization,Taping, Therapeutic Activities, Therapeutic Exercises Discharge Physical Therapy Discharge Reasons Goals Met Discharge Comments Pt has completed 14 sessions of PT with emphasis on therapeutic exercise, manual therapy, and gait training to improve gait mechanics and to address pain symptoms associated with meniscus tear and Delgado's cyst. She tolerated all treatment well and met functional goals of this plan of care. She is appropriate for discharge.
== END 2019-03-21 12:40 ==
LOC: PHYS 13:45
PROVIDERS: PCP Student in an Organized Health Care Education/Training Program; Visit Provider Student in an Organized Health Care Education/Training Program
DX: M25.561 Pain in right knee (principal)
CPT/HCPCS: 97110; 97116; 97140; 97161

== ENCOUNTER → 2019-12-13 11:40 | Outpatient (CLI) | payer MEDICARE, OTHER, SELFPAY ==
[2019-12-13 12:35] LABS: INR 3.7 (0.9-1.3); Prothrombin Time 42.5 SECONDS (10.1-12.7)
== END ==
PROVIDERS: PCP Student in an Organized Health Care Education/Training Program; Referring Provider Internal Medicine Cardiovascular Disease; Visit Provider Internal Medicine Cardiovascular Disease
DX: I48.0 Paroxysmal atrial fibrillation (principal)
CPT/HCPCS: 36415; 85610

== ENCOUNTER → 2020-01-10 08:56 | Outpatient (CLI) | payer MEDICARE, OTHER, SELFPAY ==
[2020-01-10 09:43] LABS: INR 2.7 (0.9-1.3); Prothrombin Time 30.7 SECONDS (10.1-12.7)
[2020-01-10 09:58] LABS: Alanine Aminotransferase 22 IU/L (<35); Albumin 3.8 g/dL (3.5-5.0); Albumin Globulin Ratio 1.3 (1.0-2.8); Alkaline Phosphatase 58 U/L (38-126); Aspartate Aminotransferase 27 IU/L (14-36); BUN Creatinine Ratio 25.7 (6-22); Bilirubin Total 0.4 mg/dL (0.2-1.3); Blood Urea Nitrogen 18 mg/dL (7-17); Calcium 9.3 mg/dL (8.4-10.2); Carbon Dioxide 30 mmol/L (22-32); Chloride 104 mmol/L (98-107); Cholesterol 218 mg/dL (140-199); Estimated Glomerular Filt Rate > 60.0 mL/min (>60); Glucose 88 mg/dL (80-110); HDL Cholesterol 57 mg/dL (40-60); HEMOLYSIS < 15 (0-50); LDL Cholesterol Calculated 136 mg/dL (<100); Potassium 4.4 mmol/L (3.4-5.1); Sodium 137 mmol/L (137-145); Total Protein 6.8 g/dL (6.3-8.2); Triglycerides 123 mg/dL (35-150)
== END ==
PROVIDERS: PCP Student in an Organized Health Care Education/Training Program; Visit Provider Student in an Organized Health Care Education/Training Program
DX: Z00.00 Encounter for general adult medical examination without abnormal findings (principal); I48.91 Unspecified atrial fibrillation; I48.0 Paroxysmal atrial fibrillation; Z78.0 Asymptomatic menopausal state
CPT/HCPCS: 36415; 80053; 80061; 85610

== ENCOUNTER → 2020-02-07 14:02 | Outpatient (CLI) | payer MEDICARE, OTHER, SELFPAY ==
[2020-02-07 16:35] LABS: INR 3.4 (0.9-1.3); Prothrombin Time 38.4 SECONDS (10.1-12.7)
== END ==
PROVIDERS: PCP Student in an Organized Health Care Education/Training Program
DX: I48.0 Paroxysmal atrial fibrillation (principal)
CPT/HCPCS: 36415; 85610

== ENCOUNTER → 2020-03-06 13:27 | Outpatient (CLI) | payer MEDICARE, OTHER, SELFPAY ==
[2020-03-06 14:41] LABS: INR 3.3 (0.9-1.3); Prothrombin Time 37.7 SECONDS (10.1-12.7)
== END ==
PROVIDERS: PCP Student in an Organized Health Care Education/Training Program; Referring Provider Internal Medicine Cardiovascular Disease; Visit Provider Internal Medicine Cardiovascular Disease
DX: I48.0 Paroxysmal atrial fibrillation (principal)
CPT/HCPCS: 36415; 85610

== ENCOUNTER → 2020-03-29 11:51 | Outpatient (CLI) | payer MEDICARE, OTHER, SELFPAY ==
[2020-03-29 13:12] LABS: INR 2.3 (0.9-1.3); Prothrombin Time 25.9 SECONDS (10.1-12.7)
== END ==
PROVIDERS: PCP Student in an Organized Health Care Education/Training Program; Referring Provider Internal Medicine Cardiovascular Disease; Visit Provider Internal Medicine Cardiovascular Disease
DX: I48.0 Paroxysmal atrial fibrillation (principal)
CPT/HCPCS: 36415; 85610

== ENCOUNTER → 2024-09-18 14:14 | Outpatient (CLI) | payer MEDICARE, OTHER, SELFPAY ==
--- NOTE | 2024-09-18 14:16 | DI.MG.S_ITS ---
MM screening mammo BI: 09/18/2024. BI-RADS: 0 CLINICAL: 73-year old female for bilateral screening mammogram. Tyrer-Cuzick lifetime risk of 6.4%. No personal or first-degree family history of breast cancer. PRIOR EXAMS 04/21/2017, 02/05/2015. MAMMOGRAPHY TECHNIQUE: 2D and 3D (tomosynthesis) digital mammographic views obtained, with additional images as needed for full coverage. Current study was also evaluated with a Computer Aided Detection (CAD) system. DENSITY C. The breasts are heterogeneously dense, which may obscure small masses. MAMMOGRAPHY FINDINGS Right: No suspicious mass, asymmetry, microcalcification, or other abnormality seen. Left: Lower Inner at 8:00, Posterior depth: Calcifications needing additional imaging evaluation. IMPRESSION: Right * No evidence of malignancy. Left (Calcification): Lower Inner at 8:00, Posterior depth * Incomplete - calcification needing additional imaging evaluation. RECOMMENDATIONS Left: Lower Inner at 8:00, Posterior depth * Further evaluation with diagnostic mammography. OVERALL ASSESSMENT CATEGORY BI-RADS-0: Incomplete - Need Additional Imaging Evaluation. ELECTRONICALLY SIGNED: Eliceo Contreras M.D. on 09/18/2024 at 05:53:42 PM PT Interpreting Station ID: [id number]
== END ==
PROVIDERS: PCP Family Medicine; Referring Provider Family Medicine; Visit Provider Family Medicine
DX: Z12.31 Encounter for screening mammogram for malignant neoplasm of breast (principal); R92.333 Mammographic heterogeneous density, bilateral breasts
CPT/HCPCS: 77063; 77067

== ENCOUNTER → 2024-12-11 08:31 | Outpatient (CLI) | payer MEDICARE, OTHER, SELFPAY ==
--- NOTE | 2024-12-11 08:33 | DI.MG.S_ITS ---
MM diagnostic mammo unilat LT: 12/11/2024. BI-RADS: 3 CLINICAL: 74-year old female for left diagnostic mammogram that is a recall from screening on 09/18/2024. Tyrer-Cuzick lifetime risk of 6.0%. No personal or first-degree family history of breast cancer. PRIOR EXAMS 09/18/2024, 04/21/2017, 02/05/2015. MAMMOGRAPHY TECHNIQUE: 2D and 3D (tomosynthesis) digital mammographic views obtained, with additional images as needed for full coverage. Current study was also evaluated with a Computer Aided Detection (CAD) system. DENSITY Left: C. The breast is heterogeneously dense, which may obscure small masses. MAMMOGRAPHY FINDINGS Left: Lower Inner at 8:00, Posterior depth, measuring 0.5cm: There are grouped round calcifications. These likely represent dermal calcifications. Tangential views were attempted on today's examination; however, the BB placed on the calcifications was not completely in tangent with the beam. Repeat views could not be obtained due to patient discomfort. IMPRESSION: Left (Calcification): Lower Inner at 8:00, Posterior depth, measuring 0.5cm * Probably Benign. RECOMMENDATIONS Left: Lower Inner at 8:00, Posterior depth * Six month followup with diagnostic mammography. Mammogram to include spot magnification and tangential views. COMMENTS: Findings and recommendations were conveyed to the patient during today's evaluation. OVERALL ASSESSMENT CATEGORY BI-RADS-3: Probably Benign. ELECTRONICALLY SIGNED: Ivon Patel M.D. on 12/11/2024 at 10:23:46 AM PT Interpreting Station ID: [id number]
== END ==
LOC: MAMMO 08:32
PROVIDERS: PCP Family Medicine; Referring Provider Family Medicine; Visit Provider Family Medicine
DX: R92.8 Other abnormal and inconclusive findings on diagnostic imaging of breast (principal); R92.332 Mammographic heterogeneous density, left breast; R92.1 Mammographic calcification found on diagnostic imaging of breast
CPT/HCPCS: 77065; G0279

== ENCOUNTER → 2025-02-22 11:42 | Outpatient (CLI) | payer MEDICARE, OTHER, SELFPAY ==
[2025-02-22 12:50] LABS: Hemoglobin A1C% w Est Avg Glu 5.7 % (4.0-6.0)
== END ==
PROVIDERS: PCP Family Medicine; Referring Provider Family Medicine; Visit Provider Family Medicine
DX: Z13.1 Encounter for screening for diabetes mellitus (principal)
CPT/HCPCS: 36415; 83036